=== PATIENT | female | born 1955 | race Caucasian/White ===

== ENCOUNTER → 2017-03-29 15:59 | Outpatient (CLI) | payer MEDICARE ==
[2016-01-06 10:20] VITALS: BMI 28.2
[~2017-03-29 15:59] MED LIST: ASPIRIN325 MG PO; AUGMENTIN 875-11 TAB PO; BETAPACE 80 MG80 MG PO; BOUDREAUXS BUTT60 GM TOPICAL; CIPRO500 MG PO; COREG25 MG PO; CYCLOBENZAPRINE10 MG PO; ELIQUIS2.5 MG PO; FLOMAX0.4 MG PO; HYDROCODONE-APA1 TAB PO; KEPPRA XR500 MG PO; LISINOPRIL5 MG PO; LYRICA75 MG PO; NORVASC10 MG PO; NYSTATIN15 GM TOPICAL; PAXIL40 MG PO; REGLAN5 MG PO; ROBAXIN-750750 MG PO; XANAX0.5 MG PO
[2017-03-29 17:47] LABS: APPEARANCE CLEAR (CLEAR); COLOR YELLOW (YELLOW); LEUKOCYTE ESTERASE NEGATIVE (NEGATIVE); SPECIFIC GRAVITY 1.015 (1.005-1.020)
[2017-03-29 17:48] LABS: BACTERIA MODERATE /hpf (NONE SEEN); BILIRUBIN NEGATIVE (NEGATIVE); EPITHELIAL CELLS 0-5 /hpf (0-5); GLUCOSE NEGATIVE (NEGATIVE); KETONE NEGATIVE (NEGATIVE); NITRITE NEGATIVE (NEGATIVE); PROTEIN 2+ mg/dL (NEGATIVE); RED CELLS - URINE 0-5 /hpf (0-5); UROBILINOGEN NORMAL (NORMAL); WHITE CELLS - URINE 0-5 /hpf (0-5)
== END | disposition home or self-care (01) ==
LOC: D.LABREF 15:59
PROVIDERS: Family Medicine
DX: N39.0 Urinary tract infection, site not specified (principal)

== ENCOUNTER 2017-04-02 16:19 | Inpatient (IN) | payer MEDICARE ==
[~2017-04-02] VITALS: Ht 170.2 cm; Wt 72.6 kg
[2017-04-02 17:17] LABS: BASOPHILS 0.1 % (0-2); EOSINOPHILS 1.7 % (0-7); HEMATOCRIT 45.5 % (36.0-48.0); HEMOGLOBIN 15.4 g/dL (12-16); IMMATURE GRANULOCYTES 0.1 % (0-5); LYMPHOCYTES 21.9 % (15-50); MCH 32.2 pg (26.0-34.0); MCHC 33.8 g/dL (31.0-37.0); MCV 95.2 fL (80.0-100.0); MEAN PLATELET VOLUME 12.8 fL (7.4-10.4); MONOCYTES 7.8 % (2-11); NEUTROPHILS 68.4 % (40-80); RBC 4.78 10x6/uL (4.00-5.40); RDW 13.4 % (11.5-14.5); WBC 8.1 10x3/uL (4.8-10.8)
[2017-04-02 17:21] LABS: PLATELET COUNT 140 10x3/uL (130-400)
[2017-04-02 18:04] LABS: ALBUMIN 2.8 g/dL (3.4-5.0); ALKALINE PHOSPHATASE 126 U/L (46-116); ALT (SGPT) 22 U/L (10-68); BILIRUBIN - TOTAL 0.27 mg/dL (0.2-1.3); CALC OSMOLALITY 288 mosm/kg (275-300); CALCIUM 8.7 mg/dL (8.5-10.1); CARBON DIOXIDE 29.2 mmol/L (21.0-32.0); CHLORIDE - SERUM 105 mmol/L (98-107); CREATININE - SERUM 0.8 mg/dL (0.6-1.3); GLUCOSE 182 mg/dL (74-106); PROTEIN - SERUM 5.9 g/dL (6.4-8.2); SODIUM 142 mmol/L (136-145); UREA NITROGEN 14 mg/dL (7-18); eGFR NON AFRICAN AMERICAN 77 mL/min (90-120)
[2017-04-02 19:12] LABS: APPEARANCE TURBID (CLEAR); COLOR YELLOW (YELLOW); GLUCOSE NEGATIVE (NEGATIVE); KETONE NEGATIVE (NEGATIVE); LEUKOCYTE ESTERASE 2+ (NEGATIVE); NITRITE POSITIVE (NEGATIVE); PROTEIN 2+ mg/dL (NEGATIVE)
[2017-04-02 19:13] LABS: BACTERIA MANY /hpf (NONE SEEN); BILIRUBIN NEGATIVE (NEGATIVE); EPITHELIAL CELLS 0-5 /hpf (0-5); MUCUS <1+ /lpf (NONE SEEN); RED CELLS - URINE 0-5 /hpf (0-5); WHITE CELLS - URINE >50 /hpf (0-5)
[2017-04-03 04:46] VITALS: BP 171/64; BMI 25.1
--- NOTE | 2017-04-03 07:36 | NUR ---
PATIENT IS RESTING QUIETLY WITH HER EYES CLOSED. PATIENT AWAKENS EASILY TO VERBAL STIMULI. PATIENT IS AWAKE, ALERT, AND ORIENTED X4. PATIENT COMPLAINS OF A "MILD HEADACHE". RATES HER PAIN LEVEL A "2" ON A 0-10 SCALE. DENIES ANY NAUSEA OR VOMITING AT PRESENT ITME. CONTACT ISOLATION PRECAUTIONS IN PLACE. IV SITE PATENT WITHOUT ANY S/S OF INFECTION IN PATIENT'S RIGHT FOREARM. NS INFUSING @ 100 ML/HR. PATIENT DENIES ANY NEEDS AT PRESENT TIME. BEDSIDE COMMODE NOTED NEXT TO PATIENT'S BEDSIDE. CALL LIGHT IN PATIENT'S REACH. WILL MONITOR PATIENT.
[2017-04-03 08:08] VITALS: BP 146/76
[2017-04-03 10:22] LABS: BASOPHILS 0.1 % (0-2); EOSINOPHILS 1.6 % (0-7); HEMATOCRIT 48.4 % (36.0-48.0); HEMOGLOBIN 16.2 g/dL (12-16); IMMATURE GRANULOCYTES 0.3 % (0-5); LYMPHOCYTES 19.6 % (15-50); MCH 31.6 pg (26.0-34.0); MCHC 33.5 g/dL (31.0-37.0); MCV 94.3 fL (80.0-100.0); MEAN PLATELET VOLUME 12.8 fL (7.4-10.4); MONOCYTES 6.9 % (2-11); NEUTROPHILS 71.5 % (40-80); RBC 5.13 10x6/uL (4.00-5.40); RDW 13.2 % (11.5-14.5); WBC 7.7 10x3/uL (4.8-10.8)
[2017-04-03 10:38] LABS: PLATELET COUNT 169 10x3/uL (130-400)
[2017-04-03 10:41] LABS: ALBUMIN 2.8 g/dL (3.4-5.0); ALKALINE PHOSPHATASE 121 U/L (46-116); ALT (SGPT) 22 U/L (10-68); BILIRUBIN - TOTAL 0.51 mg/dL (0.2-1.3); CALCIUM 9.2 mg/dL (8.5-10.1); CARBON DIOXIDE 29.4 mmol/L (21.0-32.0); CHLORIDE - SERUM 106 mmol/L (98-107); CREATININE - SERUM 0.8 mg/dL (0.6-1.3); PROTEIN - SERUM 6.5 g/dL (6.4-8.2); SODIUM 143 mmol/L (136-145); eGFR NON AFRICAN AMERICAN 77 mL/min (90-120)
[2017-04-03 10:42] LABS: CALC OSMOLALITY 283 mosm/kg (275-300); GLUCOSE 107 mg/dL (74-106); UREA NITROGEN 10 mg/dL (7-18)
[2017-04-03 12:25] VITALS: BP 163/113
[2017-04-03 12:53] VITALS: Ht 170.2 cm; Wt 72.6 kg
[2017-04-03 16:59] VITALS: BP 142/68
[2017-04-03] MEDS ORDERED: TETRACYCLINE H250 MG PO ×2 (17:02→17:21)
[2017-04-03] MEDS ORDERED: FLAGYL500 MG PO (17:21)
[2017-04-03 20:00] VITALS: BP 170/94
--- NOTE | 2017-04-03 20:14 | NUR ---
DC INSTRUCTIONS GIVEN.TO PT/SON/.ALONG WITH TWO RX. FOR ANTIBIOTICS FLAGYL AND TETRACYCLINE(PO).SL DC'D.HOME HEALTH WILL CONTINUE TO FOLLOW PRIOR TO ADMISSION.DC'D. VIA W/C WITH FAMILY WITH INTERIOR ASSEMBLIES DEVELOPER PROVER IN ASSIST.
== END 2017-04-03 20:30 | disposition home or self-care (01) | DRG 372 ==
LOC: D.ER 16:19 → D.MS 19:53
PROVIDERS: Emergency Medicine; ADMIT Family Medicine
DX: A04.7 Enterocolitis due to Clostridium difficile (principal); N39.0 Urinary tract infection, site not specified; I69.359 Hemiplegia and hemiparesis following cerebral infarction affecting unspecified side; E11.65 Type 2 diabetes mellitus with hyperglycemia; L89.892 Pressure ulcer of other site, stage 2; I10 Essential (primary) hypertension; I48.2 Chronic atrial fibrillation

== ENCOUNTER → 2017-04-17 18:07 | Outpatient (CLI) | payer MEDICARE ==
[2017-04-03 12:53] VITALS: BMI 25.0
[~2017-04-17 18:07] MED LIST changes: +FLAGYL500 MG PO; +TETRACYCLINE H250 MG PO
[2017-04-17 19:43] LABS: APPEARANCE CLOUDY (CLEAR); BACTERIA MANY /hpf (NONE SEEN); BILIRUBIN NEGATIVE (NEGATIVE); COLOR YELLOW (YELLOW); EPITHELIAL CELLS 0-5 /hpf (0-5); GLUCOSE NEGATIVE (NEGATIVE); KETONE NEGATIVE (NEGATIVE); LEUKOCYTE ESTERASE 1+ (NEGATIVE); NITRITE POSITIVE (NEGATIVE); PROTEIN 2+ mg/dL (NEGATIVE); RED CELLS - URINE 0-5 /hpf (0-5); SPECIFIC GRAVITY 1.015 (1.005-1.020); UROBILINOGEN NORMAL (NORMAL); WHITE CELLS - URINE >50 /hpf (0-5)
== END | disposition home or self-care (01) ==
LOC: D.LABREF 18:07
PROVIDERS: Family Medicine
DX: R30.0 Dysuria (principal)

== ENCOUNTER → 2017-05-13 11:49 | Outpatient (CLI) | payer MEDICARE ==
[2017-04-03 12:53] VITALS: BMI 25.0
[2017-05-13 13:41] LABS: CHOL - HDL RATIO 7.5 ratio (2.3-4.1); CHOLESTEROL, TOTAL 232 mg/dL (0-200); HDL CHOLESTEROL 31 mg/dL (32-96); TRIGLYCERIDE 439 mg/dL (30-200)
== END | disposition home or self-care (01) ==
LOC: D.LABREF 11:49
PROVIDERS: Family Medicine
DX: E11.9 Type 2 diabetes mellitus without complications (principal)

== ENCOUNTER 2017-10-09 15:04 | Emergency (ER) | payer MEDICARE, MEDICAID ==
[2017-04-03 12:53] VITALS: BMI 25.0
[2017-10-09 16:17] LABS: BASOPHILS 0 % (0-2); EOSINOPHILS 1.8 % (0-7); HEMATOCRIT 45.6 % (36.0-48.0); HEMOGLOBIN 15.8 g/dL (12-16); IMMATURE GRANULOCYTES 0.3 % (0-5); LYMPHOCYTES 11.5 % (15-50); MCH 31.2 pg (26.0-34.0); MCHC 34.6 g/dL (31.0-37.0); MCV 90.1 fL (80.0-100.0); MEAN PLATELET VOLUME 11.3 fL (7.4-10.4); MONOCYTES 9.1 % (2-11); NEUTROPHILS 77.3 % (40-80); PLATELET COUNT 186 10x3/uL (130-400); RBC 5.06 10x6/uL (4.00-5.40); RDW 13.1 % (11.5-14.5); WBC 7.2 10x3/uL (4.8-10.8)
[2017-10-09 16:39] LABS: ALBUMIN 2.4 g/dL (3.4-5.0); ALKALINE PHOSPHATASE 107 U/L (46-116); ALT (SGPT) 15 U/L (10-68); BILIRUBIN - TOTAL 0.52 mg/dL (0.2-1.3); CALC OSMOLALITY 279 mosm/kg (275-300); CARBON DIOXIDE 27.5 mmol/L (21.0-32.0); CHLORIDE - SERUM 105 mmol/L (98-107); CREATININE - SERUM 0.7 mg/dL (0.6-1.3); GLUCOSE 147 mg/dL (74-106); LIPASE 70 U/L (73-393); POTASSIUM - SERUM 3.4 mmol/L (3.5-5.1); PROTEIN - SERUM 6.3 g/dL (6.4-8.2); SODIUM 140 mmol/L (136-145); UREA NITROGEN 6 mg/dL (7-18); eGFR NON AFRICAN AMERICAN 90 mL/min (90-120)
[2017-10-09 18:00] LABS: COLOR DK YELLOW (YELLOW)
[2017-10-09 18:01] LABS: APPEARANCE CLOUDY (CLEAR); BACTERIA MANY /hpf (NONE SEEN); BILIRUBIN NEGATIVE (NEGATIVE); EPITHELIAL CELLS 0-5 /hpf (0-5); GLUCOSE NEGATIVE (NEGATIVE); KETONE NEGATIVE (NEGATIVE); NITRITE POSITIVE (NEGATIVE); PROTEIN 3+ mg/dL (NEGATIVE); RED CELLS - URINE 0-5 /hpf (0-5); SPECIFIC GRAVITY 1.015 (1.005-1.020); UROBILINOGEN NORMAL (NORMAL); WHITE CELLS - URINE >50 /hpf (0-5)
== END 2017-10-09 18:55 | disposition home or self-care (01) ==
LOC: D.ER 15:04
PROVIDERS: Emergency Medicine
DX: R11.10 Vomiting, unspecified (principal); N39.0 Urinary tract infection, site not specified; Z86.73 Personal history of transient ischemic attack (TIA), and cerebral infarction without residual deficits; E11.9 Type 2 diabetes mellitus without complications; K21.9 Gastro-esophageal reflux disease without esophagitis; I10 Essential (primary) hypertension

== ENCOUNTER → 2018-02-07 19:00 | Outpatient (CLI) | payer MEDICARE, MEDICAID ==
[2017-04-03 12:53] VITALS: BMI 25.0
[2018-02-07 20:09] LABS: APPEARANCE HAZY (CLEAR); BILIRUBIN NEGATIVE (NEGATIVE); COLOR YELLOW (YELLOW); GLUCOSE 50 mg/dL (NEGATIVE); KETONE NEGATIVE (NEGATIVE); NITRITE NEGATIVE (NEGATIVE); PROTEIN 2+ mg/dL (NEGATIVE); UROBILINOGEN NORMAL (NORMAL)
[2018-02-07 20:11] LABS: RED CELLS - URINE 0-5 /hpf (0-5)
[2018-02-07 20:12] LABS: BACTERIA MANY /hpf (NONE SEEN)
== END | disposition home or self-care (01) ==
LOC: D.LABREF 19:00
PROVIDERS: Family Medicine
DX: N39.0 Urinary tract infection, site not specified (principal); R35.0 Frequency of micturition

== ENCOUNTER → 2018-04-21 15:14 | Outpatient (CLI) | payer MEDICARE, MEDICAID ==
[2017-04-03 12:53] VITALS: BMI 25.0
[2018-04-21 15:42] LABS: APPEARANCE HAZY (CLEAR); BACTERIA MANY /hpf (NONE SEEN); BILIRUBIN NEGATIVE (NEGATIVE); COLOR YELLOW (YELLOW); EPITHELIAL CELLS 0-5 /hpf (0-5); GLUCOSE NEGATIVE (NEGATIVE); KETONE NEGATIVE (NEGATIVE); MUCUS >1+ /lpf (NONE SEEN); NITRITE NEGATIVE (NEGATIVE); PROTEIN 1+ mg/dL (NEGATIVE); RED CELLS - URINE 0-5 /hpf (0-5); SPECIFIC GRAVITY 1.015 (1.005-1.020); UROBILINOGEN NORMAL (NORMAL); WHITE CELLS - URINE >50 /hpf (0-5)
== END | disposition home or self-care (01) ==
LOC: D.LABREF 15:14
PROVIDERS: Family Medicine
DX: R33.9 Retention of urine, unspecified (principal)

== ENCOUNTER → 2018-05-16 21:25 | Outpatient (CLI) | payer MEDICARE, MEDICAID ==
[2017-04-03 12:53] VITALS: BMI 25.0
[2018-05-17 07:47] LABS: APPEARANCE CLOUDY (CLEAR); BILIRUBIN NEGATIVE (NEGATIVE); COLOR YELLOW (YELLOW); GLUCOSE NEGATIVE (NEGATIVE); KETONE NEGATIVE (NEGATIVE); NITRITE POSITIVE (NEGATIVE); PROTEIN 2+ mg/dL (NEGATIVE); SPECIFIC GRAVITY 1.015 (1.005-1.020); UROBILINOGEN NORMAL (NORMAL)
[2018-05-17 07:49] LABS: BACTERIA MANY /hpf (NONE SEEN); RED CELLS - URINE 0-5 /hpf (0-5); WHITE CELLS - URINE >50 /hpf (0-5)
== END | disposition home or self-care (01) ==
LOC: D.LABREF 21:25
PROVIDERS: Family Medicine
DX: Z87.440 Personal history of urinary (tract) infections (principal)

== ENCOUNTER 2018-08-21 16:12 | Emergency (ER) | payer MEDICARE, MEDICAID ==
[~2018-08-21] VITALS: Ht 170.2 cm; Wt 76.4 kg
[2018-08-21 16:24] VITALS: Ht 170.2 cm; Wt 76.4 kg
[2018-08-21] MEDS ORDERED: NEURONTIN 300300 MG PO (17:11)
[2018-08-21 18:28] VITALS: BP 160/56
== END 2018-08-21 18:28 | disposition home or self-care (01) ==
LOC: D.ER 16:12
DX: M54.12 Radiculopathy, cervical region (principal); Z86.73 Personal history of transient ischemic attack (TIA), and cerebral infarction without residual deficits; E11.9 Type 2 diabetes mellitus without complications; I10 Essential (primary) hypertension; K21.9 Gastro-esophageal reflux disease without esophagitis; F17.200 Nicotine dependence, unspecified, uncomplicated

== ENCOUNTER → 2018-09-04 17:10 | Outpatient (CLI) | payer MEDICARE ==
[2018-08-21 16:24] VITALS: BMI 26.3
[~2018-09-04 17:10] MED LIST changes: +ALENDRONATE SOD70 MG PO; +ASPIRIN81 MG PO; +FENOFIBRATE160 MG PO; +K-TAB10 MEQ PO; +LASIX20 MG PO; +LIPITOR20 MG PO; +MELATONIN 3 MG1 TAB PO; +NEURONTIN 300300 MG PO; +NEXIUM40 MG PO; +PLAVIX75 MG PO
[2018-09-04 18:12] LABS: BASOPHILS 0.1 % (0-2); EOSINOPHILS 2.1 % (0-7); HEMATOCRIT 41.6 % (36.0-48.0); HEMOGLOBIN 14.5 g/dL (12-16); IMMATURE GRANULOCYTES 0.1 % (0-5); LYMPHOCYTES 21.4 % (15-50); MCH 32.4 pg (26.0-34.0); MCHC 34.9 g/dL (31.0-37.0); MCV 93.1 fL (80.0-100.0); MEAN PLATELET VOLUME 12.9 fL (7.4-10.4); MONOCYTES 6.4 % (2-11); NEUTROPHILS 69.9 % (40-80); RBC 4.47 10x6/uL (4.00-5.40); RDW 12.6 % (11.5-14.5); WBC 7.5 10x3/uL (4.8-10.8)
[2018-09-04 18:15] LABS: PLATELET COUNT 230 10x3/uL (130-400)
[2018-09-04 18:37] LABS: ALBUMIN 3.1 g/dL (3.4-5.0); ALKALINE PHOSPHATASE 56 U/L (46-116); ALT (SGPT) 28 U/L (10-68); BILIRUBIN - TOTAL 0.21 mg/dL (0.2-1.3); CALC OSMOLALITY 288 mosm/kg (275-300); CARBON DIOXIDE 26.4 mmol/L (21.0-32.0); CHLORIDE - SERUM 105 mmol/L (98-107); CREATININE - SERUM 0.8 mg/dL (0.6-1.3); POTASSIUM - SERUM 4.7 mmol/L (3.5-5.1); PROTEIN - SERUM 6.5 g/dL (6.4-8.2); SODIUM 141 mmol/L (136-145); UREA NITROGEN 19 mg/dL (7-18); eGFR NON AFRICAN AMERICAN 77 mL/min (90-120)
[2018-09-04 18:38] LABS: GLUCOSE 214 mg/dL (74-106)
== END | disposition home or self-care (01) ==
LOC: D.LABREF 17:10
PROVIDERS: Family Medicine
DX: E11.9 Type 2 diabetes mellitus without complications (principal); I10 Essential (primary) hypertension; I63.9 Cerebral infarction, unspecified

== ENCOUNTER 2018-09-09 09:12 | Outpatient (CLI) | payer MEDICARE, MEDICAID ==
[~2018-09-09] VITALS: Ht 170.2 cm; Wt 81.8 kg
--- NOTE | ~2018-09-09 | HEMODYNAMI ---
PATIENT:SABI MILLER MEDICAL RECORD: [id number] : 57 LOCATION:[facility] ADMISSION DATE: 09/09/18 Generatedon:09/09/201811:41 Patient name: SABI MILLER Patient #: [id number] SSN: DO B: 1955 Date of study: 09/09/2018 Page: Of Hemodynamic Procedure Report Patient Data Patient Demographics Procedure consent was obtained First Name: SABI Gender: Female Last Name: PAUL : 1955 [facility] Initial: JAZLYN Age: 63 year(s) Patient #: [id number] Race: Unknown Additional ID: [id number] Contact details [address]: [address] [place] [address] State: [place] City: [place] Zip code: [address] Past Medical History Allergies Allergen Reaction Date Comments Reported Other allergy 09/09/2018 Benadryl, Chlopheniramine. Admission Admission Data Admission Date: 09/09/2018 Admission Time: 9:12 Admit Source: Other Height (in.): 67 BSA: 1.94 (m2) Height (cm.): 170.18 BMI: 28.24 (kg/m2) Weight (lbs.): 180.34 Weight (kg.): 81.8 Lab Results Lab Result Date: 09/09/2018 Lab Result Time: 10:15 Biochemistry Name Units Result Min Max BUN mg/dl 19 --(----)*- 7 18 Creatinine mg/dl 1 --(--*-)-- 0.6 1.3 CBC Name Units Result Min Max Hematocrit % 41.3 -*(----)-- 42 54 Hemoglobin g/dl 14.2 --(*---)-- 13.5 17.5 Procedure Procedure Types Cath Procedure Diagnostic Procedure LHC [facility] w/Coronaries Sedation Charges Moderate Sedation up to 15 minutes PCI Procedure Coronary Stent Coronary Stent Initial Peripheral Cath Diagnostic Procedure Central Supply Nurse Peripheral Procedures Yvwad-Prppehy-Yzt-Off Four Vessel Arteriogram Procedure Description Procedure Date Procedure Date: 09/09/2018 Procedure Start Time: 11:19 Procedure End Time: 11:38 Procedure Staff Name Function Tiago Cowart MD Performing Physician Alli Dela Cruz RT Monitor Julissa Wells RT Scrub Tommie Giordano RN Nurse Procedure Data Cath Procedure Fluoroscopy Diagnostic fluoroscopy Total fluoroscopy Time: 3 time: 3 min min Diagnostic fluoroscopy Total fluoroscopy dose: dose: 235.22 mGy 235.22 mGy Contrast Material Contrast Material Type Amount (ml) Isovue 300 150 Entry Location Entry Primary Successful Side Size Upsize Upsize Entry Closure Succes sful Closure Location (Fr) 1 (Fr) 2 (Fr) Remarks Device Remarks Femoral Right 5 Fr 6 Fr Exoseal artery Short Estimated blood loss: 10 ml Diagnostic catheters Device Type Used For End Catheter Placement Medtronic Dexterity 5Fr Procedure Pigtail catheter(NO COST SUPPLY) Medtronic Dexterity 5Fr Procedure JL 4.0 catheter (NO COST SUPPLY) Medtronic Dexterity 5Fr Procedure 3DRC catheter (NO COST SUPPLY) Procedure Complications No complications Procedure Medications Medication Administration Route Dosage Oxygen etCO2 Nasal cannula 2 l/min Heparin Flush Bag added to field 2 bags (1000units/500ml NS) 0.9% NaCl I.V. 100 ml/hr Fentanyl I.V. 50 mcg Versed I.V. 1 mg Fentanyl I.V. 50 mcg Versed I.V. 1 mg Fentanyl I.V. 50 mcg Versed I.V. 1 mg Fentanyl I.V. 50 mcg Versed I.V. 1 mg Heparin Bolus I.V. 4000 units Integrilin (Bolus I.V. 7.3 ml 2mg/ml) Plavix P.O. 600 mg Hemodynamics Rest BSA: 1.94 (m2) HGB: 14.2 (g/dl) O2 Consumption: Estimated: 176.56 (ml/min) O2 Co nsumption indexed: Estimated:91.01 (ml/min/m) Heart Rate: 61 (bpm) Snapshots Pre Cath Intra NCS Post Cath Vital Signs Time Heart Resp SPO2 etCO2 NIBP (mmHg) Rhythm Pain Sedation Rate (ipm) (%) (mmHg) Status Level (bpm) 11:08:22 65 17 93 32.6 143/62(104) NSR 0 (11) 10(A) , No pain 11:12:48 62 16 92 34.1 128/52(90) NSR 0 (11) 10(A) , No pain 11:17:02 61 17 97 38.7 116/59(92) NSR 0 (11) 10(A) , No pain 11:21:24 60 16 94 27.3 117/50(84) NSR 0 (11) 10(A) , No pain 11:25:44 63 16 91 0 103/52(87) NSR 0 (11) 9(A) , No pain 11:29:56 64 16 97 15.9 114/55(95) NSR 0 (11) 9(A) , No pain 11:34:12 65 17 97 0 115/52(92) NSR 0 (11) 9(A) , No pain 11:38:33 65 17 97 7.5 116/49(90) NSR 0 (11) 10(A) , No pain Medications Time Medication Route Dose Verified Delivered Reason Notes Effectiveness by by 11:11:02 Oxygen etCO2 2 Tiagogiselle Manriquezy Per physician Nasal l/min Supa Giordano RN cannula 11:11:11 Heparin Flush added 2 Tiago Manriquezy used for Bag to bags Supa Giordano RN procedure (1000units/500ml field NS) 11:11:22 0.9% NaCl I.V. 100 Tiago Manriquezy Per physician ml/hr Supa Giordano RN 11:17:46 Fentanyl I.V. 50 Tiago Tommie for sedation mcg Supa Goirdano RN 11:17:52 Versed I.V. 1 mg Tiago Tommie for sedation Supa Giordano RN 11:19:34 Fentanyl I.V. 50 Tiago Tommie for sedation mcg Supa Giordano RN 11:19:39 Versed I.V. 1 mg Tiago Tommie for sedation Supa Giordano RN 11:22:59 Fentanyl I.V. 50 Tiago Tommie for sedation mcg Supa Giordano RN 11:23:04 Versed I.V. 1 mg Tiago Tommie for sedation Supa Giordano RN 11:25:57 Fentanyl I.V. 50 Tiago Tommie for sedation mcg Supa Giordano RN 11:26:01 Versed I.V. 1 mg Tiago Tommie for sedation Supa Giordano RN 11:30:35 Heparin Bolus I.V. 4000 Tiago Reilly for units Supa Giordano RN anticoagulation 11:30:45 Integrilin I.V. 7.3 Tiago Reilly Per physician (Bolus 2mg/ml) ml uSpa Giordano RN 11:36:59 Plavix P.O. 600 Tiago Reilly for mg Supa Giordano RN antiplatelet therapy Procedure Log Time Note 10:24:50 Informed consent obtained and on chart 10:24:53 Admit Source: Other 10:25:06 Diagnostic Cath status Elective 10:25:07 Time tracking: Regular hours (M-F 7:00 - 5:00) 10:25:10 Plan of Care:Hemodynamics will remain stable., Cardiac rhythm will remain stable., Comfort level will be maintained., Respiratory function will remain adequate., Patient/ family verbilizes understanding of procedure., Procedure tolerated without complication., Recovers from procedure without complications.. 10:25:20 H&P Date Dictated: 09/07/2018 Within 30 days and on chart., H&P Addendum completed by physician on day of procedure. (MUST COMPLETE FOR ALL OUTPATIENTS). 10:42:00 Alli Dela Cruz RT(R) sent for patient. Start room use. 10:49:55 Lab Result : BUN 19 mg/dl 10:49:55 Lab Result : Hemoglobin 14.2 g/dl 10:49:55 Lab Result : Creatinine 1 mg/dl 10:49:55 Lab Result : Hematocrit 41.3 % 10:50:09 Patient Weight : 180.34 lbs 10:50:13 Patient Height : 67 inches 10:50:20 Lab results completed and on chart. 10:50:59 Patient allergic to Other allergyBenadryl, Chlopheniramine. 10:59:30 Patient received from Pre/Post Procedure Room to CCL 3 Alert and oriented. Tansferred to table in Supine position. 10:59:31 Warm blankets applied, and dawit hugger turned on for patient comfort. 10:59:31 Correct patient and procedure confirmed by team. 10:59:32 ECG and BP/O2 sat monitors applied to patient. 10:59:33 Full Disclosure recording started 11:07:07 Vital chart was started 11:11:02 Oxygen 2 l/min etCO2 Nasal cannula was administered by Tommie Giordano RN; Per physician; 11:11:11 Heparin Flush Bag (1000units/500ml NS) 2 bags added to field was administered by Tommie Giordano RN; used for procedure; 11:11:22 0.9% NaCl 100 ml/hr I.V. was administered by Tommie Giordano RN; Per physician; 11:14:00 Baseline sample Acquired. 11:14:04 Rhythm: sinus rhythm 11:14:08 Pre-procedure instructions explained to patient. 11:14:08 Pre-op teaching completed and patient verbalized understanding. 11:14:10 Family unavailable. 11:14:11 Patient NPO since Midnight. 11:14:13 Is the patient allergic to Iodine/contrast media? No. 11:14:15 Is patient on blood thinner?Yes 11:14:16 Patient diabetic? Yes. 11:14:18 Previous problem with sedation/anesthesia? No ? 11:14:19 Snore? Yes 11:14:20 Sleep apnea? No 11:14:21 Deviated septum? No 11:14:22 Opens mouth fully? Yes 11:14:22 Sticks out tongue? Yes 11:14:25 Airway obstruction? No ? 11:14:27 Dentures? No ? 11:14:29 Pre procedure: right dorsailis pedis pulse 2+ Normal; easily identifiable; not easily obliterated 11:14:31 Patient pain scale 0/10 ?. 11:14:38 IV patent on arrival in left forearm with 0.9% NaCl at [facility]. 11:15:01 Right groin area was prepped with chlora-prep and draped in sterile fashion 11:15:02 Alarms reviewed by R. N. 11:15:03 Sharps counted by scrub and verified by R.N. 11:15:06 ACIST Syringe (26488) opened to sterile field. 11:15:06 Bag Decanter () opened to sterile field. 11:15:08 ACIST Hand Control (01181) opened to sterile field. 11:15:08 ACIST Manifold (19474) opened to sterile field. 11:15:09 Tegaderm 4 x 4 (1626W) opened to sterile field. 11:15:13 DIAGNOSTIC WIRE .035 260cm J wire (936743) opened to sterile field. 11:15:14 Medline Cath Pack ([id number]) opened to sterile field. 11:15:56 SHEATH 5FR [place] ([id number]) opened to sterile field. 11:17:34 Physician arrived 11::35 --------ALL STOP TIME OUT------ 11::35 Final Timeout: patient, procedure, and site verified with staff and physician. All members of the team are in agreement. 11:17:36 Right groin site verified by team. 11:17:38 Physical assessment completed. ASA score P 2 - A patient with mild systemic disease as per Tiago Cowart MD. 11:17:41 Sedation plan: IV Moderate Sedation Medication:Versed, Fentanyl 11:17:46 Fentanyl 50 mcg I.V. was administered by Tommie Giordano RN; for sedation; 11:17:52 Versed 1 mg I.V. was administered by Tommie Giordano RN; for sedation; 11::34 Fentanyl 50 mcg I.V. was administered by Tommie Giordano RN; for sedation; 11:19:39 Versed 1 mg I.V. was administered by Tommie Giordano RN; for sedation; 11:19:45 Procedure started. 11:19:48 Local anesthetic to right femoral artery with Lidocaine 2% by Tiago Cowart MD.INITIAL ACCESS ONLY 11:19:53 Zero performed for pressure channel P1 11:20:27 A 5 Fr sheath was inserted into the Right Femoral artery 11:20:43 Zero performed for pressure channel P1 11:21:27 A Medtronic Dexterity 5Fr Pigtail catheter(NO COST SUPPLY) was advanced over the wire and used for Procedure. 11::58 LV gram done using FERGUSON 11:22:00 Injector settings: Ml/sec: 10, Volume: 20, 11:22:08 EF : 65 % 11:22:09 LV hemodynamics recorded. 11:22:59 Fentanyl 50 mcg I.V. was administered by Tommie Giordano RN; for sedation; 11:23:04 Versed 1 mg I.V. was administered by Tommie Giordano RN; for sedation; 11:23:53 Abdominal angiogram w/ runoff was performed. 11:23:56 Left leg runoff performed. 11:25:12 Right leg runoff performed. 11:25:17 Catheter exchanged over wire. 11:25:22 A Medtronic Dexterity 5Fr JL 4.0 catheter (NO COST SUPPLY) was advanced over the wire and used for Procedure. 11:25:49 LCA angiography performed. 11::57 Fentanyl 50 mcg I.V. was administered by Tommie Giordano RN; for sedation; 11::01 Versed 1 mg I.V. was administered by Tommie Giordano RN; for sedation; 11:26:24 Catheter exchanged over wire. 11::28 A [facility] Dexterity 5Fr 3DRC catheter (NO COST SUPPLY) was advanced over the wire and used for Procedure. 11:27:40 INFLATOR Merit BasixCompak ([id number]) opened to sterile field. 11:27:41 CHOICE PT Extra Support 182cm wire ([id number]) opened to sterile field. 11:27:46 SHEATH 6FR [place] (IBA144) opened to sterile field. 11:27:50 RCA angiography performed. 11:28:24 Left carotid angiography performed. 11:29:00 Left subclavian angiography performed 11:29:15 Right carotid angiography performed. 11:29:54 Catheter removed. 11:30:00 GUIDE 6FR HS I SH catheter ([id number]) opened to sterile field. 11:30:10 Sheath upsized to a 6 Fr Short. 11:30:16 6 Fr HS I SH guide catheter was inserted over the wire 11:30:35 Heparin Bolus 4000 units I.V. was administered by Tommie Giordano RN; for anticoagulation; 11:30:45 Integrilin (Bolus 2mg/ml) 7.3 ml I.V. was administered by Tommie Giordano RN; Per physician; 11:31:23 choice pt es wire advanced. 11:31:51 Wire advanced across lesion. 11:32:39 Place stent Inflation Number: 1 A INTEGRITY RX 2.5 x 14 stent ([id number]) was prepped and advanced across the Mid RCA. The stent was deployed at 11 MARYA for 0:10 (min:sec). 11:32:54 Stent catheter was removed intact over wire. 11:32:55 Wire removed. 11:32:55 Guide catheter removed. 11:35:45 EXOSEAL 6Fr (EX600) opened to sterile field. 11:35:52 Sheath removed intact; hemostasis achieved with Exoseal to the Right Femoral artery. 11:35:53 Procedure ended.(Physican Out) 11:36:18 Fluoroscopy time 03.00 minutes. 11:36:23 Flurop Dose total: 235.22 11:36:23 Fluoroscopy dose: 235.22 mGy 11:36:26 Contrast amount:Isovue 300 150ml. 11:36:27 Sharps counted by scrub and verified by R.N. 11:36:28 Insertion/operative site no bleeding no hematoma. 11:36:30 Post-op/insertion site Right Femoral artery dressed using a 4 x 4 and Tegaderm. 11:36:33 Post right femoral artery:stable, soft, clean and dry 11:36:35 Post Procedure Pulses reassessed and unchanged 11:36:37 Post-procedure physical assessment completed. ASA score P 2 - A patient with mild systemic disease as per Tiago Cowart MD. 11:36:39 Post procedure rhythm: unchanged. 11:36:41 Estimated blood loss: 10 ml 11:36:43 Post procedure instruction explained to patient.Patient verbalizes understanding. 11:36:43 Patient needs reinforcement of post procedure teaching. 11:36:59 Plavix 600 mg P.O. was administered by Tommie Giordano RN; for antiplatelet therapy; 11:37:07 Procedure type changed to Cath procedure, Diagnostic procedure, LHC, LHC w/Coronaries, Sedation Charges, Moderate Sedation up to 15 minutes, PCI procedure, Coronary Stent, Coronary Stent Initial, Peripheral Cath Diagnostic Procedure, Central Supply Nurse Peripheral Procedures, Ndute-Mrdkhvc-Ffv-Off, Four Vessel Arteriogram 11:38:18 Procedure and supply charges have been captured, reviewed, submitted and are correct. 11:38:21 Procedure Complication : No complications 11:38:22 Vital chart was stopped 11:38:23 See physician's report for complete and final results. 11:38:24 Report given to Pre/Post Procedure Room. 11:38:26 Patient transfered to Pre/Post Procedure Room with Stretcher. 11:38:28 Procedure ended. 11:38:28 Full Disclosure recording stopped 11:38:31 End room use (Document Last) Intervention Summary Intervention Notes Time ActionType Lesion and Equipment Action# Pressure Duration Attributes Used 11:32:39 Place stent Mid RCA INTEGRITY RX 1 11 00:10 2.5 x 14 stent ([id number]) Device Usage Item Name Manufacture Quantity Catalog Number Hospital Part Current Mini mal Lot# / Charge Number Stock Stock Serial# Code ACIST Acist 1 19571 693635 654784 900913 20 Syringe Medical (27338) Systems Inc Bag Decanter Microtek 1 2001S 260715 55048 729598 5 (2001S) Medical Inc. ACIST Hand Acist 1 20122 379821 658075 054234 5 Control Medical (50890) Systems Inc ACIST Acist 1 48016 095581 721370 638394 5 Manifold Medical (13896) Systems Inc Tegaderm 4 x 3M 1 1626W 242698 012797 936057 5 4 (1626W) DIAGNOSTIC St Felix 1 441392 719361 459465 761675 30 WIRE .035 260cm J wire (156720) Medline Cath Medline 1 [id number] 850330 41656 527010 5 Pack ([id number]) Medtronic Medtronic 1 [id number] 628594 038673 5 Dexterity 5Fr Pigtail catheter(NO COST SUPPLY) Medtronic Medtronic 1 [id number] 288537 348758 5 Dexterity 5Fr JL 4.0 catheter (NO COST SUPPLY) Medtronic Medtronic 1 [id number] 782876 167657 5 Dexterity 5Fr 3DRC catheter (NO COST SUPPLY) INFLATOR [employer] 1 SW6402 835843 635323 671440 15 [employer] Medical BasixCompak (LU9847) CHOICE PT [place] 1 [id number] 101178 057630 806191 5 Extra Scientific Support 182cm wire ([id number]) SHEATH 6FR Terumo 1 HLN086 861424 445778 111607 40 [place] (LTC368) GUIDE 6FR HS Medtronic 1 [id number] 911517 90589 197495 1 I SH catheter (LI9ARQLL) INTEGRITY RX Medtronic 1 [id number] 889108 055827 144701 5 [id number] 2.5 x 14 stent ([id number]) EXOSEAL 6Fr Cardinal 1 EX600 006012 982559 381451 10 (EX600) Health SHEATH 5FR Terumo 1 NWH737 337817 041071 666731 40 [place] (NVO610) Signature Audit [place] Stage Time Signature Unsigned Intra-Procedure 09/09/2018 Alli Dela Cruz 11:41:16 AM RT(R) Signatures Monitor : Alli Dela Cruz RT Signature : Date : Time : [facility] [address] [place] [address]
--- NOTE | ~2018-09-09 | OP ---
PATIENT NAME: SABI MILLER MEDICAL RECORD: [id number] :57 LOCATION:D.CAT ADMISSION DATE: SURGEON: MAURI EARL MD DATE OF OPERATION: 09/09/2018 PROCEDURES: 1. Aortofemoral runoff. 2. Abdominal aortography. 3. Four-vessel carotid and vertebral angiography. DESCRIPTION OF PROCEDURE: After informed consent was obtained and after detailed description of risks, benefits as well as alternative therapies, the patient elected to proceed with angiogram. The right femoral area had a preexisting sheath. All catheters exchanged through this sheath. FINDINGS: There was subselection of each subclavian as well as the left carotid. RIGHT SIDE: The common carotid is overall devoid of disease. The internal carotid has 30-40% stenosis, but no significant flowing stenosis. The external carotid is extremely small. Vertebral artery has no significant disease. LEFT SYSTEM: 1. The common carotid distally has at least 60% stenosis. The internal and external carotids have mild plaquing, none greater than 30%. Vertebral artery has no significant disease. 2. Abdominal aortography was performed. The catheter was pulled down for aortofemoral runoff. Abdominal aortography reveals tzrl-rv-bktuqqht irregularities of the abdominal aorta, but no flow limiting stenosis. No dissection or annulus formation. RIGHT LEG: A. Iliac: The common iliac has mild irregularities, but no flow-limiting stenosis. Internal and external iliacs have mild irregularities, but no flow-limiting stenosis. B. Femoral system: The common superficial and deep femoral have mild irregularities, but no flow-limiting stenosis. C. Popliteal and infrapopliteal vessels are patent with good 3-vessell runoff to the foot. LEFT LEG: A. Iliac: The common internal and external iliacs have mild irregularities, but no flow-limiting stenosis. B. Femoral system: The common and deep femoral are widely patent. Superficial femoral has a 70% to 80% stenosis in the mid distal vessel. C. Popliteal and infrapopliteal vessels: The popliteal has a 70% to 80% stenosis in the mid vessel of this segment as well. The infrapopliteal vessels have good -3-vessell runoff to the foot. OVERALL IMPRESSION: Left leg disease of the superficial femoral artery and popliteal that is amenable to transcatheter revascularization in the future. Right leg has no significant disease. 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
--- NOTE | ~2018-09-09 | OP ---
PATIENT NAME: SABI MILLER MEDICAL RECORD: [id number] :57 LOCATION:D.CAT ADMISSION DATE: SURGEON: MAURI EARL MD DATE OF OPERATION: 09/09/2018 DATE OF SERVICE: 09/09/2018 PROCEDURES: 1. PTCA stent RCA. 2. Left heart catheterization. 3. Selective coronary angiography. 4. Left ventriculogram. INDICATION: Angina and coronary artery disease. PROCEDURE PERFORMED: After informed consent was obtained and after detailed description of risks, benefits as well as alternative therapies, the patient elected to proceed with angiogram and angioplasty. The right femoral area was prepped and draped in normal sterile fashion. Right femoral artery was cannulated via modified Seldinger technique with placement of 6-[place] sheath. All catheters exchanged through this sheath. FINDINGS: Left ventriculogram was performed in the standard 30-degree FERGUSON view reveals good cardiac wall motion throughout all segments with overall ejection fraction estimated at 55% to 60%. SELECTIVE CORONARY ANGIOGRAPHY: 1. Left main is with no significant angiographic disease. 2. Left anterior descending has a long area of 70+ percent stenosis in the mid vessel. 3. Left circumflex has mild irregularities, but no flow-limiting stenosis. 4. Right coronary has 80+ percent stenosis in the mid vessel, PTCA STENT OF THE RCA: The stent used is 2.5 x 14 mm Integrity. The result was 0% residual stenosis. OVERALL IMPRESSION: Successful percutaneous transluminal coronary angioplasty stent of the right coronary artery going from 80% initial stenosis to 0% residual. PLAN: For PTCA stent of the LAD in the near future. TRANSINT:[id number] Voice Confirmation ID: [id number] DOCUMENT ID: [id number] MAURI EARL MD at 1856 CC: [id number] DICTATION DATE: 09/09/[address] JUDGE: 09/09/18 1308 DEP CLI 09/09/18 [place] [id number]
[~2018-09-09 09:12] MED LIST changes: -ALENDRONATE SOD70 MG PO; -ASPIRIN81 MG PO; -FENOFIBRATE160 MG PO; -K-TAB10 MEQ PO; -LASIX20 MG PO; -LIPITOR20 MG PO; -MELATONIN 3 MG1 TAB PO; -NEXIUM40 MG PO; -PLAVIX75 MG PO
[2018-09-09] MEDS ORDERED: LIPITOR20 MG PO (10:03)
[2018-09-09] MEDS ORDERED: FENOFIBRATE160 MG PO (10:14)
[2018-09-09] MEDS ORDERED: ALENDRONATE SOD70 MG PO (10:15)
[2018-09-09] MEDS ORDERED: LASIX20 MG PO (10:16)
[2018-09-09] MEDS ORDERED: MELATONIN 3 MG1 TAB PO (10:16)
[2018-09-09] MEDS ORDERED: NEXIUM40 MG PO (10:16)
[2018-09-09] MEDS ORDERED: K-TAB10 MEQ PO (10:17)
[2018-09-09 10:26] LABS: BASOPHILS 0.1 % (0-2); EOSINOPHILS 1.5 % (0-7); HEMATOCRIT 41.3 % (36.0-48.0); HEMOGLOBIN 14.2 g/dL (12-16); IMMATURE GRANULOCYTES 0.1 % (0-5); LYMPHOCYTES 18.7 % (15-50); MCHC 34.4 g/dL (31.0-37.0); MEAN PLATELET VOLUME 12.2 fL (7.4-10.4); MONOCYTES 5.7 % (2-11); NEUTROPHILS 73.9 % (40-80); PLATELET COUNT 217 10x3/uL (130-400); RBC 4.44 10x6/uL (4.00-5.40); RDW 12.7 % (11.5-14.5); WBC 7.2 10x3/uL (4.8-10.8)
[2018-09-09 10:29] VITALS: BP 138/56; Ht 170.2 cm; Wt 81.8 kg
[2018-09-09 10:45] LABS: ANION GAP 11.6 mmol/L (8-16); CALCIUM 9.5 mg/dL (8.5-10.1); CARBON DIOXIDE 28.8 mmol/L (21.0-32.0); POTASSIUM - SERUM 4.4 mmol/L (3.5-5.1)
[2018-09-09] MEDS ORDERED: PLAVIX75 MG PO (12:18)
[2018-09-09] MEDS ORDERED: ASPIRIN81 MG PO (12:35)
== END 2018-09-09 15:45 | disposition home or self-care (01) ==
LOC: D.CATH 09:12
PROVIDERS: Internal Medicine Interventional Cardiology
DX: I25.119 Atherosclerotic heart disease of native coronary artery with unspecified angina pectoris (principal); I70.202 Unspecified atherosclerosis of native arteries of extremities, left leg; I65.23 Occlusion and stenosis of bilateral carotid arteries; Z01.812 Encounter for preprocedural laboratory examination

== ENCOUNTER 2018-09-11 09:39 | Outpatient (CLI) | payer MEDICARE, MEDICAID ==
[~2018-09-11] VITALS: Ht 170.2 cm; Wt 84.1 kg
--- NOTE | ~2018-09-11 | HEMODYNAMI ---
PATIENT:SABI MILLER MEDICAL RECORD: [id number] : 57 LOCATION:[facility] ADMISSION DATE: 09/11/18 Generatedon:09/11/201814:19 Patient name: SABI MILLER Patient #: [id number] SSN: DO B: 1955 Date of study: 09/11/2018 Page: Of Hemodynamic Procedure Report Patient Data Patient Demographics Procedure consent was obtained First Name: SABI Gender: Female Last Name: PAUL : 1955 [facility] Initial: JAZLYN Age: 63 year(s) Patient #: [id number] Race: Unknown Additional ID: [id number] Contact details [address]: [address] [place] [address] State: [place] City: [place] Zip code: [address] Past Medical History Allergies Allergen Reaction Date Comments Reported Other allergy 09/09/2018 Benadryl, Chlopheniramine. Other allergy 09/11/2018 Benadryl, Chlorpheniraime. Admission Admission Data Admission Date: 09/11/2018 Admission Time: 9:39 Admit Source: Other Lab Results Lab Result Date: 09/11/2018 Lab Result Time: 10:35 Biochemistry Name Units Result Min Max BUN mg/dl 20 --(----)*- 7 18 Creatinine mg/dl 0.9 --(-*--)-- 0.6 1.3 CBC Name Units Result Min Max Hematocrit % 41.3 -*(----)-- 42 54 Hemoglobin g/dl 14.1 --(*---)-- 13.5 17.5 Procedure Procedure Types Cath Procedure Diagnostic Procedure FFR/IVUS Intra-Coronary IVUS Initial PCI Procedure Coronary Stent Coronary Stent Initial Procedure Description Procedure Date Procedure Date: 09/11/2018 Procedure Start Time: 14:01 Procedure End Time: 14:17 Procedure Staff Name Function Tiago Cowart MD Performing Physician Alli Dela Cruz RT Monitor Julissa Wells RT Scrub Abi Efrem RN Nurse Procedure Data Cath Procedure Fluoroscopy Diagnostic fluoroscopy Total fluoroscopy Time: 3 time: 3 min min Diagnostic fluoroscopy Total fluoroscopy dose: 175 dose: 175 mGy mGy Contrast Material Contrast Material Type Amount (ml) Isovue 300 51 Entry Location Entry Primary Successful Side Size Upsize Upsize Entry Closure Succes sful Closure Location (Fr) 1 (Fr) 2 (Fr) Remarks Device Remarks Femoral Right 6 Fr Exoseal artery Short Estimated blood loss: 10 ml Procedure Complications No complications Procedure Medications Medication Administration Route Dosage 0.9% NaCl I.V. 100 ml/hr Oxygen etCO2 Nasal cannula 2 l/min Lidocaine 2% added to field 20 Heparin Flush Bag added to field 2 bags (1000units/500ml NS) Versed I.V. 2 mg Fentanyl I.V. 100 mcg Heparin Bolus I.V. 4000 units Versed I.V. 2 mg Plavix P.O. 75 mg Hemodynamics Rest HGB: 14.1 (g/dl) Heart Rate: 22 (bpm) Snapshots Pre Cath Intra NCS Post Cath Vital Signs Time Heart Resp SPO2 NIBP (mmHg) Rhythm Pain Sedation Rate (ipm) (%) Status Level (bpm) 13:46:02 67 19 96 154/68(102) NSR 0 (11) 10(A) , No pain 13:50:35 65 13 96 154/71(123) NSR 0 (11) 10(A) , No pain 13:55:03 63 12 96 142/66(105) NSR 0 (11) 10(A) , No pain 13:59:33 64 17 97 139/63(105) NSR 0 (11) 10(A) , No pain 14:03:57 64 16 98 134/64(100) NSR 0 (11) 10(A) , No pain 14:08:21 66 17 98 134/66(102) NSR 0 (11) 10(A) , No pain 14:12:46 64 16 96 135/56(101) NSR 0 (11) 10(A) , No pain 14:16:45 No Cuff NSR 0 (11) 10(A) , No pain Medications Time Medication Route Dose Verified Delivered Reason Notes Effectiveness by by 13:30:50 0.9% NaCl I.V. 100 Tiago Alex used for ml/hr Supa Topete jacquard plate maker 13:30:56 Oxygen etCO2 2 Tiago Abi used for Nasal l/min Supa Topete procedure cannula RN 13:31:03 Lidocaine 2% added 20ml Tiago Tiago for local to vial Supa Cowart MD anesthetic field 13:31:08 Heparin Flush added 2 Tiago Tiago used for Bag to bags Supa Cowart MD procedure (1000units/500ml field NS) 13:59:13 Versed I.V. 2 mg Tiago Abi for sedation Supa Topete RN 13:59:20 Fentanyl I.V. 100 Tiago Abi for sedation mcg Supa Topete RN 14:01:13 Heparin Bolus I.V. 4000 Tiago Abi for units Supa Topete anticoagulation RN 14:06:56 Versed I.V. 2 mg Tiago Abi for sedation Supa Topete RN 14:10:11 Plavix P.O. 75 mg Tiago Abi for Supa Topete antiplatelet RN therapy Procedure Log Time Note 13:22:39 Informed consent obtained and on chart 13:22:42 Admit Source: Other 13:23:05 Diagnostic Cath status Elective 13:23:06 Time tracking: Regular hours (M-F 7:00 - 5:00) 13:23:09 Plan of Care:Hemodynamics will remain stable., Cardiac rhythm will remain stable., Comfort level will be maintained., Respiratory function will remain adequate., Patient/ family verbilizes understanding of procedure., Procedure tolerated without complication., Recovers from procedure without complications.. 13:23:40 H&P Date Dictated: 09/11/2018 New H&P dictated by physician.. 13:26:28 Lab Result : BUN 20 mg/dl 13:26:28 Lab Result : Creatinine 0.9 mg/dl 13:26:28 Lab Result : Hemoglobin 14.1 g/dl 13:26:28 Lab Result : Hematocrit 41.3 % 13:26:31 Lab results completed and on chart. 13:28:59 Alli YUAN(R) sent for patient. Start room use. 13:30:50 0.9% NaCl 100 ml/hr I.V. was administered by Abi Topete RN; used for procedure; 13:30:56 Oxygen 2 l/min etCO2 Nasal cannula was administered by Abi Topete RN; used for procedure; 13:31:03 Lidocaine 2% 20ml vial added to field was administered by Tiago Cowart MD; for local anesthetic; 13:31:08 Heparin Flush Bag (1000units/500ml NS) 2 bags added to field was administered by Tiago Cowart MD; used for procedure; 13:44:36 Vital chart was started 13:53:47 Patient received from Pre/Post Procedure Room to CCL 1 Alert and oriented. Tansferred to table in Supine position. 13:53:48 Warm blankets applied, and dawit hugger turned on for patient comfort. 13:53:49 Correct patient and procedure confirmed by team. 13:53:49 ECG and BP/O2 sat monitors applied to patient. 13:53:52 Baseline sample Acquired. 13:53:59 Rhythm: sinus rhythm 13:54:03 Pre-procedure instructions explained to patient. 13:54:04 Pre-op teaching completed and patient verbalized understanding. 13:54:08 Family in waiting room. 13:54:10 Patient NPO since Midnight. 13:54:45 Patient allergic to Other allergyBenadryl, Chlorpheniraime. 13:54:50 Is patient on blood thinner?Yes 13:54:53 ACC The patient was administered the following blood thiners within the last 24 hours: ACCPlavix 13:56:03 Patient diabetic? Yes. 13:56:04 If diabetic: On Metformin? No 13:56:07 Previous problem with sedation/anesthesia? No ? 13:56:11 Snore? Yes 13:56:12 Sleep apnea? No 13:56:12 Deviated septum? No 13:56:13 Opens mouth fully? Yes 13:56:14 Sticks out tongue? Yes 13:56:15 Airway obstruction? No ? 13:56:16 Dentures? No ? 13:56:20 Pre procedure: right dorsailis pedis pulse 2+ Normal; easily identifiable; not easily obliterated 13:56:22 Patient pain scale 0/10 ?. 13:56:27 IV patent on arrival in right antecubital with 0.9% NaCl at [facility]. 13:56:33 Right groin area was prepped with chlora-prep and draped in sterile fashion 13:56:34 Alarms reviewed by R. N. 13:56:34 Sharps counted by scrub and verified by RGarcíaN. 13:56:37 ACIST Syringe (93385) opened to sterile field. 13:56:37 Bag Decanter (2002S) opened to sterile field. 13:56:38 Medline Cath Pack ([id number]) opened to sterile field. 13:56:39 ACIST Hand Control (13579) opened to sterile field. 13:56:40 ACIST Manifold (72511) opened to sterile field. 13:56:41 Tegaderm 4 x 4 (1626W) opened to sterile field. 13:56:42 SHEATH 5FR Dalzell (JPR633) opened to sterile field. 13:56:43 DIAGNOSTIC Multipack 5Fr catheter set (ID4656) opened to sterile field. 13:56:44 DIAGNOSTIC WIRE .035 260cm J wire (006213) opened to sterile field. 13:57:05 Physician arrived 13:57:05 --------ALL STOP TIME OUT------ 13:57:06 Final Timeout: patient, procedure, and site verified with staff and physician. All members of the team are in agreement. 13:57:07 Right groin site verified by team. 13:57:09 Physical assessment completed. ASA score P 2 - A patient with mild systemic disease as per Tiaog Cowart MD. 13:57:12 Sedation plan: IV Moderate Sedation Medication:Versed, Fentanyl 13:59:13 Versed 2 mg I.V. was administered by Abi Topete RN; for sedation; 13:59:20 Fentanyl 100 mcg I.V. was administered by Abi Topete RN; for sedation; 14:00:48 Procedure started. 14:00:48 Full Disclosure recording started 14:01:01 Local anesthetic to right femoral artery with Lidocaine 2% by Tiago Cowart MD.INITIAL ACCESS ONLY 14:01:13 Heparin Bolus 4000 units I.V. was administered by Abi Topete RN; for anticoagulation; 14:02:04 SHEATH 6FR [place] (VTZ505) opened to sterile field. 14:02:11 A 6 Fr Short sheath was inserted into the Right Femoral artery 14:02:21 GUIDE 6FR XBLAD 3.5 catheter ([id number]) opened to sterile field. 14:02:26 Zero performed for pressure channel P1 14:03:22 INFLATOR Merit [place] (UB1865) opened to sterile field. 14:03:22 CHOICE PT Extra Support 182cm wire ([id number]) opened to sterile field. 14:03:52 6 Fr XBLAD 3.5 guide catheter was inserted over the wire 14:03:55 CHOICE PT ES wire advanced. 14:03:57 Wire advanced across lesion. 14:04:07 Knippa [place] IVUS Catheter (32671U) opened to sterile field. 14:04:12 IVUS catheter advanced over wire. 14:04:13 IVUS pass to LAD lesion performed. 14:04:14 IVUS catheter removed over wire. 14:06:56 Versed 2 mg I.V. was administered by Abi Topete RN; for sedation; 14:07:18 Place stent Inflation Number: 1 A INTEGRITY RX 3.0 x 15 stent ([id number]) was prepped and advanced across the Prox LAD. The stent was deployed at 13 MARYA for 0:10 (min:sec). 14:07:21 Stent catheter was removed intact over wire. 14:07:33 Wire removed. 14:07:35 Guide catheter removed. 14:07:42 Sheath removed intact; hemostasis achieved with Exoseal to the Right Femoral artery. 14:07:48 Procedure ended.(Physican Out) 14:07:58 Fluoroscopy time 03.00 minutes. 14:08:03 Flurop Dose total: 175 14:08:03 Fluoroscopy dose: 175 mGy 14:09:37 Contrast amount:Isovue 300 51ml. 14:10:11 Plavix 75 mg P.O. was administered by Abi Topete RN; for antiplatelet therapy; 14:15:09 Sharps counted by scrub and verified by R.N. 14:15:23 Insertion/operative site no bleeding no hematoma. 14:15:26 Post-op/insertion site Left Femoral artery dressed using a 4 x 4 and Tegaderm. 14:15:33 Post left femerol artery:stable, soft, clean and dry 14:15:39 Post Procedure Pulses reassessed and unchanged 14:15:41 Post-procedure physical assessment completed. ASA score P 2 - A patient with mild systemic disease as per Tiago Cowart MD. 14:15:43 Post procedure rhythm: unchanged. 14:15:46 Estimated blood loss: 10 ml 14:15:47 Post procedure instruction explained to patient.Patient verbalizes understanding. 14:15:47 Patient needs reinforcement of post procedure teaching. 14:16:04 Procedure type changed to Cath procedure, Diagnostic procedure, FFR/IVUS, Intra-Coronary IVUS Initial, PCI procedure, Coronary Stent, Coronary Stent Initial 14:16:42 Procedure and supply charges have been captured, reviewed, submitted and are correct. 14:16:45 Procedure Complication : No complications 14:16:49 Vital chart was stopped 14:16:57 See physician's report for complete and final results. 14:16:59 Report given to Pre/Post Procedure Room. 14:17:02 Patient transfered to Pre/Post Procedure Room with Stretcher. 14:17:04 Procedure ended. 14:17:04 Full Disclosure recording stopped 14:17:07 End room use (Document Last) Intervention Summary Intervention Notes Time ActionType Lesion and Equipment Action# Pressure Duration Attributes Used 14:07:18 Place stent Prox LAD INTEGRITY RX 1 13 00:10 3.0 x 15 stent ([id number]) Device Usage Item Name Manufacture Quantity Catalog Number Hospital Part Current Mini mal Lot# / Charge Number Stock Stock Serial# Code ACIST Acist 1 99413 898179 518462 354985 20 Syringe Medical (86160) Systems Inc Bag Decanter Microtek 1 2001S 904313 50154 536269 5 (2001S) Medical Inc. Medline Cath Medline 1 [id number] 803067 35970 876025 5 Pack ([id number]) ACIST Hand Acist 1 86686 680193 673217 999392 5 Control Medical (03886) Systems Inc ACIST Acist 1 90203 269009 338284 994644 5 Manifold Medical (09429) Systems Inc Tegaderm 4 x 3M 1 1626W 682333 579996 225612 5 4 (1626W) SHEATH 5FR Terumo 1 LLK293 086608 396239 817853 40 Dalzell (RBK240) DIAGNOSTIC Cardinal 1 AS2026 709492 68993 209759 30 [facility] Health 5Fr catheter set (FW0673) DIAGNOSTIC St Felix 1 269100 936280 585083 068382 30 WIRE .035 260cm J wire (191632) SHEATH 6FR Terumo 1 JJD773 957187 211115 628217 40 Dalzell (RCP249) GUIDE 6FR Cardinal 1 [id number] 541315 777721 710417 10 XBLAD 3.5 Health catheter (79601168) INFLATOR Merit 1 QP7854 800839 480594 052068 15 [facility] Medical BasixCompak (ZL7134) CHOICE PT [place] 1 [id number] 402367 225114 132170 5 Extra Scientific Support 182cm wire ([id number]) Knippa Knippa 1 71414V 693379 377990 020104 8 [place] IVUS Catheter (46667Q) INTEGRITY RX Medtronic 1 [id number] 175782 573510 471795 5 [id number] 3.0 x 15 stent ([id number]) Signature Audit Upatoi Stage Time Signature Unsigned Intra-Procedure 09/11/2018 Alli Dela Cruz 2:19:02 PM RT(R) Signatures Monitor : Alli Dela Cruz RT Signature : Date : Time : [address] [place] [address]
--- NOTE | ~2018-09-11 | HP ---
PATIENT: SABI DILLON MEDICAL RECORD: [id number] ACCOUNT: [id number] LOCATION:PETR : 57 ADMISSION DATE: 09/11/18 PCP: PAPTIO VALDEZ MD HISTORY AND PHYSICAL EXAMINATION ADMITTING DIAGNOSES: 1. Angina. 2. Coronary artery disease. 3. Recent PTCA and stent of RCA with concomitant disease of LAD. 4. Previous CVA. 5. Peripheral vascular disease. HISTORY OF PRESENT ILLNESS: Ms. Dillon presents with anginal symptomatology, found to have 2-vessel disease of the RCA and LAD, underwent successful PTCA and stent of the RCA. She is now brought back for PTCA and stent of the LAD. REVIEW OF SYSTEMS: The patient reports easy bruising but reports no swollen glands. The patient reports no fever, no night sweats, no significant weight gain, no significant weight loss. No significant exercise tolerance. The patient reports no dry eyes, no irritation, no vision change. Patient reports no difficulty hearing and no ear pain. Patient reports no frequent nose bleeds or nose and sinus problems. Patient reports on arm pain on exertion. No shortness of breath while lying down. No history of heart murmur. Patient reports no cough, no wheezing or coughing up blood. Patient reports no abdominal pain, no vomiting. Normal appetite. No diarrhea and not vomiting blood. No nausea and no constipation. Patient reports no incontinence. No difficulty urinating. No hematuria. No increased frequency. Patient reports no muscle aches. No weakness, no arthralgias, no back pain. No swelling of the extremities. Patient reports no abnormal mole, no jaundice, no rashes. Reports no loss of consciousness. No weakness and no numbness. No seizures, dizziness, or headaches. The patient reports no depression, no sleep disturbance, feeling safe in a relationship and no alcohol abuse. Patient reports on fatigue. Reports no runny nose or sinus pressure. No itching, no hives, and no frequent sneezing. PHYSICAL EXAMINATION: GENERAL APPEARANCE: Well-nourished, well-developed, appears stated age. Level of distress, comfortable. PSYCHIATRIC: Mental status, alert, normal affect. Orientation, oriented to time, place and person. EYES: Lids and conjunctiva, noninjected. No discharge, no pallor. ENT: Lips, teeth, gums, normal dentition. Oropharynx, no cyanosis, no pallor. NECK: Carotid arteries, bilateral normal upstroke, no bruits, no thrills. JUGULAR VEINS: No jugular venous pressure or distention. CERVICAL LYMPH NODES: Nontender, nonenlarged. THYROID: Not enlarged. Nontender. No nodules. LUNGS: Respiratory effort, unlabored. CHEST: Normal curvature. No thoracic deformity. No chest wall tenderness. Percussion, resonant. Auscultation, clear. No wheezes, no rales, no rhonchi. CARDIOVASCULAR: Precordial exam, nondisplaced. No heaves or pericardial thrills. Rate and rhythm, regular. Heart sounds, normal S1, normal S2. No S3, no gallop, no rub. Systolic murmur, not heard. Diastolic murmur, not heard. EXTREMITIES: No cyanosis, no edema. Peripheral pulses, full and equal in all extremities, except as noted. No bruits appreciated. ABDOMEN: Soft, nondistended. Normal aorta. No bruit. Nontender. No masses. HISTORY AND PHYSICAL [id number] SABI DILLON Liver, nontender, no hepatomegaly. Spleen, nontender, no splenomegaly. MUSCULOSKELETAL: No joint tenderness. No joint swelling. No erythema. NEUROLOGICAL: Normal gait, normal strength, normal tone. SKIN: Warm and dry. OVERALL IMPRESSION: Anginal symptomatology with significant disease of the LAD. We will proceed with transcatheter revascularization of the LAD. TRANSINT:[id number] Voice Confirmation ID: [id number] DOCUMENT ID: [id number] MAURI EARL MD at 1856 CC: [id number] DICTATION DATE: 09/11/18 1337 HAND TUBE BENDER: 09/11/18 1344 DEP CLI 09/11/18 [id number] [place] [address]
--- NOTE | ~2018-09-11 | OP ---
PATIENT NAME: SABI MILLER MEDICAL RECORD: [id number] :57 LOCATION:D.CAT ADMISSION DATE: SURGEON: MAURI EARL MD DATE OF OPERATION: 09/11/2018 PROCEDURES: 1. PTCA stent LAD. 2. Intravascular ultrasound. 3. Selective coronary angiography. INDICATION: Angina and coronary artery disease. PROCEDURE IN DETAIL: After informed consent was obtained and after a detailed description of the risks, benefits as well as alternative therapies, the patient elected to proceed with angiogram and angioplasty. The left femoral area was prepped and draped in normal sterile fashion. Left femoral artery was cannulated via modified Seldinger technique with placement of 6-Amharic sheath. All catheters exchanged through this sheath. FINDINGS: Left anterior descending has 80% stenosis in the mid vessel confirmed by intravascular ultrasound. This was addressed with a 3.0 x 15 mm Integrity. Result was 0% residual stenosis. OVERALL IMPRESSION: Successful PTCA stent of the LAD going from 80% initial stenosis to 0% residual. TRANSINT:[id number] Voice Confirmation ID: [id number] DOCUMENT ID: [id number] MAURI EARL MD at 1856 CC: [id number] DICTATION DATE: 09/11/18 1411 [place] MANAGER: 09/11/[address] [facility] CLI 09/11/18 [address] [place] [address]
[~2018-09-11 09:39] MED LIST changes: +ALENDRONATE SOD70 MG PO; +ASPIRIN81 MG PO; +FENOFIBRATE160 MG PO; +K-TAB10 MEQ PO; +LASIX20 MG PO; +LIPITOR20 MG PO; +MELATONIN 3 MG1 TAB PO; +NEXIUM40 MG PO; +PLAVIX75 MG PO
[2018-09-11 10:29] VITALS: BP 146/57; Ht 170.2 cm; Wt 84.1 kg
[2018-09-11 10:42] LABS: BASOPHILS 0.2 % (0-2); EOSINOPHILS 2.8 % (0-7); HEMATOCRIT 41.3 % (36.0-48.0); HEMOGLOBIN 14.1 g/dL (12-16); IMMATURE GRANULOCYTES 0.2 % (0-5); LYMPHOCYTES 19.8 % (15-50); MCH 31.6 pg (26.0-34.0); MCHC 34.1 g/dL (31.0-37.0); MCV 92.6 fL (80.0-100.0); MEAN PLATELET VOLUME 11.9 fL (7.4-10.4); MONOCYTES 6.8 % (2-11); NEUTROPHILS 70.2 % (40-80); PLATELET COUNT 210 10x3/uL (130-400); RBC 4.46 10x6/uL (4.00-5.40); RDW 12.6 % (11.5-14.5); WBC 6.1 10x3/uL (4.8-10.8)
[2018-09-11 10:50] LABS: ANION GAP 10.9 mmol/L (8-16); CALCIUM 9.5 mg/dL (8.5-10.1); CARBON DIOXIDE 27.3 mmol/L (21.0-32.0); CREATININE - SERUM 0.9 mg/dL (0.6-1.3); POTASSIUM - SERUM 4.2 mmol/L (3.5-5.1)
== END 2018-09-11 17:50 | disposition home or self-care (01) ==
LOC: D.CATH 09:39
PROVIDERS: Internal Medicine Interventional Cardiology
DX: I25.119 Atherosclerotic heart disease of native coronary artery with unspecified angina pectoris (principal); Z95.5 Presence of coronary angioplasty implant and graft; I73.9 Peripheral vascular disease, unspecified; Z86.73 Personal history of transient ischemic attack (TIA), and cerebral infarction without residual deficits; Z01.812 Encounter for preprocedural laboratory examination

== ENCOUNTER → 2018-12-01 18:23 | Outpatient (CLI) | payer MEDICARE, MEDICAID ==
[2018-09-11 10:29] VITALS: BMI 29.0
[2018-12-01 19:28] LABS: APPEARANCE CLEAR (CLEAR); BILIRUBIN NEGATIVE (NEGATIVE); COLOR YELLOW (YELLOW); GLUCOSE 100 mg/dL (NEGATIVE); KETONE NEGATIVE (NEGATIVE); NITRITE POSITIVE (NEGATIVE); PROTEIN 1+ mg/dL (NEGATIVE); UROBILINOGEN NORMAL (NORMAL)
[2018-12-01 19:29] LABS: BACTERIA MANY /hpf (NONE SEEN); EPITHELIAL CELLS OCC /hpf (0-5); RED CELLS - URINE 0-5 /hpf (0-5); WHITE CELLS - URINE 0-5 /hpf (0-5)
== END | disposition home or self-care (01) ==
LOC: D.LABREF 18:23
PROVIDERS: Family Medicine
DX: R30.0 Dysuria (principal)

== ENCOUNTER 2019-02-06 09:59 | Observation (INO) | payer MEDICARE, MEDICAID ==
[~2019-02-06] VITALS: Ht 170.2 cm; Wt 75.0 kg
[~2019-02-06 09:59] MED LIST changes: +HYDROCODON-ACE1 EA10 PO; -HYDROCODONE-APA1 TAB PO
[2019-02-06 10:18] LABS: BASOPHILS 0.2 % (0-2); HEMATOCRIT 40.5 % (36.0-48.0); HEMOGLOBIN 13.8 g/dL (12-16); IMMATURE GRANULOCYTES 0.2 % (0-5); LYMPHOCYTES 21.6 % (15-50); MCH 31.4 pg (26.0-34.0); MCHC 34.1 g/dL (31.0-37.0); MEAN PLATELET VOLUME 11.4 fL (7.4-10.4); MONOCYTES 5.3 % (2-11); NEUTROPHILS 71.7 % (40-80); PLATELET COUNT 215 10x3/uL (130-400); RDW 12.6 % (11.5-14.5); WBC 6.3 10x3/uL (4.8-10.8)
[2019-02-06 10:26] LABS: APTT 27.9 SECONDS (22.8-39.4); INR 0.98 (0.85-1.17); PROTIME 12.5 SECONDS (11.6-15.0)
[2019-02-06 10:31] LABS: ALBUMIN 2.7 g/dL (3.4-5.0); ALKALINE PHOSPHATASE 68 U/L (46-116); ALT (SGPT) 22 U/L (10-68); BILIRUBIN - TOTAL 0.41 mg/dL (0.2-1.3); CALC OSMOLALITY 285 mosm/kg (275-300); CALCIUM 8.6 mg/dL (8.5-10.1); CARBON DIOXIDE 32.1 mmol/L (21.0-32.0); CHLORIDE - SERUM 105 mmol/L (98-107); GLUCOSE 150 mg/dL (74-106); POTASSIUM - SERUM 4.7 mmol/L (3.5-5.1); PROTEIN - SERUM 6.2 g/dL (6.4-8.2); SODIUM 141 mmol/L (136-145); UREA NITROGEN 17 mg/dL (7-18); eGFR NON AFRICAN AMERICAN 59 mL/min (90-120)
[2019-02-06 10:43] LABS: CKMB 0.7 U/L (0.0-3.6); CREATINE KINASE 43 UL (21-215); MAGNESIUM - SERUM 1.6 mg/dL (1.8-2.4); TROPONIN-I < 0.017 ng/mL (0.000-0.060)
[2019-02-06 11:01] LABS: APPEARANCE TURBID (CLEAR); BILIRUBIN NEGATIVE (NEGATIVE); COLOR DARK YELLOW (YELLOW); GLUCOSE NEGATIVE (NEGATIVE); KETONE NEGATIVE (NEGATIVE); NITRITE POSITIVE (NEGATIVE); PROTEIN 3+ mg/dL (NEGATIVE); SPECIFIC GRAVITY 1.005 (1.005-1.020)
[2019-02-06 11:03] LABS: BACTERIA MANY /hpf (NONE SEEN); EPITHELIAL CELLS 0-5 /hpf (0-5); MUCUS >1+ /lpf (NONE SEEN); YEAST NONE SEEN /hpf (NONE SEEN)
[2019-02-06 11:04] LABS: AMORPHOUS SEDIMENT <1+ /lpf (NONE SEEN); URIC ACID CRYSTALS 0-5 /hpf (NONE SEEN)
--- NOTE | 2019-02-06 12:29 | MORECARE ---
CASE MANAGEMENT DISCHARGE SUMMARY PATIENT: SABI MILLER UNIT: [id number] ADM DATE: 02/06/19 AGE: 63 : 57 SEX: F ROOM/BED: D.1201 AUTHOR: VINNIE REYES PHYSICIAN: REFERRING PHYSICIAN: PEEWEE HENRY MD DATE OF SERVICE: 02/06/19 Discharge Plan Patient Name: SABI MILLER Facility: [facility]:[place] : 1955 Planned Disposition: Home Anticipated Discharge Date: 02/07/19 Discharge Date: Expected LOS: 1 Initial Reviewer: [email or web address] Initial Review Date: 02/06/2019 Generated: 02/06/19 1:29 pm Patient Name: SABI MILLER Page 14261 at 1229 All edits/amendments must be made on the electronic document DICTATION DATE: 02/06/19 1229 TRANSPORT TECH: CASTILLO 02/06/19 1229 RPT#: [id number] DC DATE: STATUS: ADM IN [facility] [address] [place] [address] END OF REPORT
--- NOTE | 2019-02-06 12:37 | MORECARE ---
CASE MANAGEMENT DISCHARGE SUMMARY PATIENT: SABI MILLER UNIT: [id number] ADM DATE: 02/06/19 AGE: 63 : 57 SEX: F ROOM/BED: D.1201 AUTHOR: VINNIE REYES PHYSICIAN: REFERRING PHYSICIAN: PEEWEE HENRY MD DATE OF SERVICE: 02/06/19 Discharge Plan Patient Name: SABI MILLER Facility: [facility]:[place] : 1955 Planned Disposition: Home Anticipated Discharge Date: 02/07/19 Discharge Date: Expected LOS: 1 Initial Reviewer: [email or web address] Initial Review Date: 02/06/2019 Generated: 02/06/19 1:37 pm Comments DCP- Discharge Planning Updated by [email or web address]: Deepti Downey on 02/06/19 11:[address] Patient Name: SABI MILLER Admission Status: ER Accout number: [id number] Admission Date: 02-06-2019 : 1955 Admission Diagnosis: Attending: PEEWEE HENRY Current LOS: 1 Anticipated DC Date: 02-07-2019 Planned Disposition: Home Primary Insurance: [facility] MEDICARE SOLUTIONS Discharge Planning Comments: CM met with patient and her to complete initial dc planning assessment. CM educated patient on the CM role and verbal consent given by patient to complete assessment. Patient lives at home with her and is total care. 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 Patient currently has [facility] and wishes to resume at discharge. SINDHU form signed by patient for resumption of Home Health. Signed form placed in chart and signed form given to patient. At discharge patient plans to return home and feels this is a safe discharge. Patient denied further known discharge needs at this time. CM will continue to follow and will assist as needed with dc plans/needs. Oil Truck Driver: Deepti Downey RN, [facility] DCPIA - Discharge Planning Initial Assessment Updated by [email or web address]: Deepti Downey on 02/06/19 12:30 pm * Is the patient Alert and Oriented? Yes * How many steps to enter\exit or inside your home? Ramp * PCP Dr. Jha * Pharmacy [facility] on [address] * Preadmission Environment Home with Family * ADLs Total Dependent * Equipment Bedside Commode Hospital Bed Rolling Walker Wheelchair * List name and contact numbers for known caregivers / representatives who currently or will assist patient after discharge: Aquiles Millre - spouse - [phone] Kinsey Dunnu - [phone] - son- [phone] * Verbal permission to speak to the caregivers and representatives has been obtained from the patient. Yes * Community resources currently utilized Home Health Meals on Wheels * Please name any agencies selected above. [facility] (SINDHU signed in ED for Resumption) [facility] * Additional services required to return to the preadmission environment? No * Can the patient safely return to the preadmission environment? Yes * Has this patient been hospitalized within the prior 30 days at any hospital? No Last DP export: 02/06/19 11:29 a Patient Name: SABI MILLER Page 41799 at 1237 All edits/amendments must be made on the electronic document DICTATION DATE: 02/06/19 1236 SAP ARCHITECT: CASTILLO 02/06/19 1236 RPT#: [id number] DC DATE: STATUS: ADM IN [facility] [address] [place] [address] END OF REPORT
--- NOTE | 2019-02-06 13:00 | NUR ---
RECEIVED PT TO ROOM 1201 PT A/O X4, RESP EVEN AND NONLABORED. LT SIDE IS FLACCID. ORIENTED PT TO ROOM AND CALL LIGHT, PT UNSURE OF THE MEDICATIONS SHE TAKES, ALSO DOES NOT KNOW, DID MED REC GOOD I COULD. WILL ASSESS PT AND START PLAN OF CARE.
[2019-02-06] MEDS ORDERED: VALIUM 2 MG TAB2 MG PO (13:33)
[2019-02-06 14:10] VITALS: BP 124/44; Ht 170.2 cm; Wt 75.0 kg
--- NOTE | 2019-02-06 15:12 | NUR ---
WENT TO APPLY NYSTATIN ON PT AND PT IS STILL NOT BACK IN HER ROOM. EARLIER AROUND 1450 PT REQUESTED A WHEELCHAIR, BECAUSE SHE WANTED TO GET AROUND THE ROOM ON HER OWN AND GO FOR A LITTLE STROLL WITH HER . TOLD PT NOT TO BE GONE MORE THAN 15MIN. ALSO UNABLE TO PLACED HEART MONITOR ON PT.
--- NOTE | 2019-02-06 16:45 | NUR ---
CALLED [facility] AND WAS ON HOLD FOR 10MIN TRYING TO GET SOMEONE TO FAX A COPY OF PT'S HOME MEDICATION LIST. WILL TRY AGAIN LATER OR PASS ON IN REPORT TO CDA TEACHER NURSE.
--- NOTE | 2019-02-06 17:32 | NUR ---
WENT TELLIGN THIS NURSE THAT SHE IS GOING TO GO OUTSIDE AGAIN. TOLD PT THAT SHE DOES NOT NEED TO LEAVE THE FLOOR TO GO SMOKE OUTSIDE, THAT I GAVE HER A NICOTINE PATCH. PT STILL WENT OUTSIDE A THIS TIME, ACCOMPANIED BY .
--- NOTE | 2019-02-06 18:06 | NUR ---
PT CAME UP TO NURSES STATION CRYING. STATING THAT SHE WANTS TO GO HOME THAT SHE CANNOT STAY HERE ANOTHER MINUTE. CANNOT QUIT GOING OUTSIDE TO SMOKE. STATES THAT SHE HAS A LOT OF FAMILY PROBLEMS AND SHE DOES NOT WANT TO BE HERE. CALLED DR. HENRY AND NOTIFIED HIM THAT PT WANTS TO LEAVE, AMA, DR. HENRY STATED TO GET HER TO SIGN AMA PAPERS.
--- NOTE | 2019-02-06 18:16 | NUR ---
AMA FORMED SIGNED BY PT, REMOVED RT HAND IV. HEART MONITOR REMOVED AND TAKEN TO [facility] PF.
--- NOTE | 2019-02-08 09:27 | MORECARE ---
CASE MANAGEMENT DISCHARGE SUMMARY PATIENT: SABI MILLER UNIT: [id number] ADM DATE: 02/06/19 AGE: 63 : 57 SEX: F ROOM/BED: D.1201 AUTHOR: ERICDOC PHYSICIAN: REFERRING PHYSICIAN: PEEWEE HENRY MD DATE OF SERVICE: 02/08/19 Discharge Plan Patient Name: SABI MILLER Facility: [facility]:[place] : 1955 Planned Disposition: Home Anticipated Discharge Date: 02/07/19 Discharge Date: 02/06/2019 Expected LOS: 1 Initial Reviewer: [email or web address] Initial Review Date: 02/06/2019 Generated: 02/08/19 10:27 am Comments DCP- Discharge Planning Updated by [email or web address]: Deepti Downey on 02/06/19 11:[address] Patient Name: SABI MILLER Admission Status: ER Accout number: [id number] Admission Date: 02-06-2019 : 1955 Admission Diagnosis: Attending: PEEWEE HENRY Current LOS: 1 Anticipated DC Date: 02-07-2019 Planned Disposition: Home Primary Insurance: [facility] MEDICARE SOLUTIONS Discharge Planning Comments: CM met with patient and her to complete initial dc planning assessment. CM educated patient on the CM role and verbal consent given by patient to complete assessment. Patient lives at home with her and is total care. 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 Patient currently has [facility] and wishes to resume at discharge. SINDHU form signed by patient for resumption of Home Health. Signed form placed in chart and signed form given to patient. At discharge patient plans to return home and feels this is a safe discharge. Patient denied further known discharge needs at this time. CM will continue to follow and will assist as needed with dc plans/needs. Education Assistant: Deepti Downey RN, [facility] DCPIA - Discharge Planning Initial Assessment Updated by [email or web address]: Deepti Downey on 02/06/19 12:30 pm * Is the patient Alert and Oriented? Yes * How many steps to enter\exit or inside your home? Ramp * PCP Dr. Jha * Pharmacy [facility] on [address] * Preadmission Environment Home with Family * ADLs Total Dependent * Equipment Bedside Commode Hospital Bed Rolling Walker Wheelchair * List name and contact numbers for known caregivers / representatives who currently or will assist patient after discharge: Aquiles Miller - spouse - [phone] Kinsey Dunnu - [phone] - son- [phone] * Verbal permission to speak to the caregivers and representatives has been obtained from the patient. Yes * Community resources currently utilized [facility] Me[facility] on Wheels * Please name any agencies selected above. [facility] (SINDHU signed in ED for Resumption) [employer] * Additional services required to return to the preadmission environment? No * Can the patient safely return to the preadmission environment? Yes * Has this patient been hospitalized within the prior 30 days at any hospital? No Last DP export: 02/06/19 11:37 a Patient Name: SABI MILLER Page 79534 at 0927 All edits/amendments must be made on the electronic document DICTATION DATE: 02/08/19925 INSPECTOR CIRCUITRY NEGATIVE: CASTILLO 02/08/19925 RPT#: [id number] DC DATE:02/06/19 STATUS: DIS IN [facility] [address] [place] [address] END OF REPORT
== END 2019-02-06 19:02 | disposition left against medical advice (07) ==
LOC: D.ER 09:59 → D.EDHOLD 11:48 → D.M3 11:48 → OBSVTIME 11:48 → D.M3 11:48
PROVIDERS: Emergency Medicine; ADMIT Internal Medicine Nephrology; ATTEND Internal Medicine Nephrology
DX: N39.0 Urinary tract infection, site not specified (principal); I69.354 Hemiplegia and hemiparesis following cerebral infarction affecting left non-dominant side; E83.42 Hypomagnesemia; I10 Essential (primary) hypertension; K21.9 Gastro-esophageal reflux disease without esophagitis; F17.213 Nicotine dependence, cigarettes, with withdrawal; F41.9 Anxiety disorder, unspecified; F32.9 Major depressive disorder, single episode, unspecified; I48.91 Unspecified atrial fibrillation; I25.10 Atherosclerotic heart disease of native coronary artery without angina pectoris

== ENCOUNTER → 2019-06-14 13:44 | Outpatient (CLI) | payer MEDICARE, MEDICAID ==
[2019-02-06 14:10] VITALS: BMI 25.9
[~2019-06-14 13:44] MED LIST changes: +VALIUM 2 MG TAB2 MG PO
[2019-06-14 14:42] LABS: APPEARANCE TURBID (CLEAR); BACTERIA MANY /hpf (NONE SEEN); BILIRUBIN NEGATIVE (NEGATIVE); COLOR YELLOW (YELLOW); EPITHELIAL CELLS OCC /hpf (0-5); GLUCOSE NEGATIVE (NEGATIVE); KETONE NEGATIVE (NEGATIVE); MUCUS <1+ /lpf (NONE SEEN); NITRITE NEGATIVE (NEGATIVE); PROTEIN 3+ mg/dL (NEGATIVE); RED CELLS - URINE RARE /hpf (0-5); SPECIFIC GRAVITY 1.005 (1.005-1.020); TRIPLE PHOSPHATE CRYSTALS OCC /hpf (NONE SEEN); UROBILINOGEN NORMAL (NORMAL); WHITE CELLS - URINE 0-5 /hpf (0-5)
== END | disposition home or self-care (01) ==
LOC: D.LABREF 13:44
PROVIDERS: ATTEND Family Medicine
DX: M54.9 Dorsalgia, unspecified (principal); R30.0 Dysuria

== ENCOUNTER → 2019-09-09 20:08 | Outpatient (CLI) | payer MEDICARE, MEDICAID ==
[2019-02-06 14:10] VITALS: BMI 25.9
[2019-09-09 20:44] LABS: APPEARANCE CLOUDY (CLEAR); BILIRUBIN NEGATIVE (NEGATIVE); COLOR YELLOW (YELLOW); GLUCOSE NEGATIVE (NEGATIVE); KETONE NEGATIVE (NEGATIVE); NITRITE NEGATIVE (NEGATIVE); PROTEIN 3+ mg/dL (NEGATIVE); SPECIFIC GRAVITY 1.015 (1.005-1.020); UROBILINOGEN NORMAL (NORMAL)
[2019-09-09 20:45] LABS: BACTERIA MANY /hpf (NEGATIVE); EPITHELIAL CELLS NSEEN /hpf (0-5); RED CELLS - URINE 0-5 /hpf (0-5)
== END | disposition home or self-care (01) ==
LOC: D.LABREF 20:08
PROVIDERS: ATTEND Urology
DX: R30.9 Painful micturition, unspecified (principal)

== ENCOUNTER 2020-03-03 11:11 | Inpatient (IN) | payer MEDICARE, MEDICAID ==
[~2020-03-03] VITALS: Ht 170.2 cm; Wt 72.6 kg
[2020-03-03 11:47] LABS: APTT 25.3 SECONDS (22.8-39.4); INR 0.92 (0.85-1.17); PROTIME 12.3 SECONDS (11.6-15.0)
[2020-03-03 11:52] LABS: CALC OSMOLALITY 285 mosm/kg (275-300); CALCIUM 8.7 mg/dL (8.5-10.1); CARBON DIOXIDE 25.8 mmol/L (21.0-32.0); CHLORIDE - SERUM 109 mmol/L (98-107); CREATININE - SERUM 0.8 mg/dL (0.6-1.3); GLUCOSE 158 mg/dL (74-106); POTASSIUM - SERUM 3.5 mmol/L (3.5-5.1); SODIUM 142 mmol/L (136-145); UREA NITROGEN 13 mg/dL (7-18); eGFR NON AFRICAN AMERICAN 77 mL/min (90-120)
[2020-03-03 12:09] LABS: ALBUMIN 2.9 g/dL (3.4-5.0); ALKALINE PHOSPHATASE 94 U/L (30-120); ALT (SGPT) 18 U/L (10-68); BILIRUBIN - TOTAL 0.23 mg/dL (0.2-1.3); CKMB 0.4 U/L (0.0-3.6); CREATINE KINASE 32 UL (21-215); MAGNESIUM - SERUM 1.9 mg/dL (1.8-2.4); PRO BNP 573 pg/mL (0-125); THYROID STIMULATING HORMONE 1.13 uIU/mL (0.36-3.74); TROPONIN-I < 0.017 ng/mL (0.000-0.060)
[2020-03-03 12:43] LABS: BASOPHILS 0.1 % (0-2); HEMATOCRIT 39.4 % (36.0-48.0); IMMATURE GRANULOCYTES 0.2 % (0-5); LYMPHOCYTES 17.3 % (15-50); MCH 31.8 pg (26.0-34.0); MCV 96.3 fL (80.0-100.0); MEAN PLATELET VOLUME 11.9 fL (7.4-10.4); MONOCYTES 5.4 % (2-11); PLATELET COUNT 188 10x3/uL (130-400); RBC 4.09 10x6/uL (4.00-5.40); RDW 12.9 % (11.5-14.5); WBC 8.6 10x3/uL (4.8-10.8)
[2020-03-03 14:34] LABS: BILIRUBIN NEGATIVE (NEGATIVE); GLUCOSE NEGATIVE (NEGATIVE); KETONE NEGATIVE (NEGATIVE); NITRITE NEGATIVE (NEGATIVE)
[2020-03-03 14:35] LABS: BACTERIA MANY /hpf (NEGATIVE); EPITHELIAL CELLS 0-5 /hpf (0-5); RED CELLS - URINE RARE /hpf (0-5); WHITE CELLS - URINE 0-5 /hpf (NEGATIVE)
--- NOTE | 2020-03-03 15:53 | NUR ---
SPOKE WITH PATIENTS SPOUSE VIA TELEPHINE
--- NOTE | 2020-03-03 18:15 | NUR ---
SHE IS COMING DOWN THE HALLWAY TO THE ROOM YELLING IN THE HALLWAY, SHE IS YELLING "I DON'T WANT TO BE HERE", "YOU CAN'T KEEP ME HERE AGAINST MY WILL". FLORIAN UMANG IS HERE SEEING HER. SHE WILL NOT MOVE TO THE BED, SHE IS ON THE ER CHART. SHE IS TALKING ON THE PHONE AND CRYING.
[2020-03-03 22:00] VITALS: BP 109/52; BMI 25.1
[2020-03-04 04:00] VITALS: BP 134/65
[2020-03-04 06:56] LABS: HEMOGLOBIN 13.1 g/dL (12-16); LYMPHOCYTES 12.4 % (15-50); MCH 31.7 pg (26.0-34.0); MCHC 33.6 g/dL (31.0-37.0); MCV 94.4 fL (80.0-100.0); MEAN PLATELET VOLUME 11.2 fL (7.4-10.4); NEUTROPHILS 81.7 % (40-80); PLATELET COUNT 222 10x3/uL (130-400); RBC 4.13 10x6/uL (4.00-5.40); RDW 12.8 % (11.5-14.5); WBC 9.5 10x3/uL (4.8-10.8)
[2020-03-04 07:08] LABS: ALBUMIN 2.6 g/dL (3.4-5.0); ANION GAP 12.5 mmol/L (8-16); BILIRUBIN - TOTAL 0.38 mg/dL (0.2-1.3); CALCIUM 8.6 mg/dL (8.5-10.1); CREATININE - SERUM 0.9 mg/dL (0.6-1.3); MAGNESIUM - SERUM 1.9 mg/dL (1.8-2.4); PHOSPHOROUS 4.2 mg/dL (2.5-4.9); POTASSIUM - SERUM 3.5 mmol/L (3.5-5.1); PROTEIN - SERUM 5.5 g/dL (6.4-8.2)
[2020-03-04 09:09] VITALS: BMI 25.0
[2020-03-04 09:19] VITALS: BP 155/66
--- NOTE | 2020-03-04 11:44 | NUR ---
resting in bed, no distress noted, assisted with am meal, tao well, takes po meds crushed, cont to monitor sugars and output
[2020-03-04 12:43] VITALS: BP 117/49
[2020-03-04 13:42] LABS: CHOL - HDL RATIO 5.1 ratio (2.3-4.1); LDL-HDL RATIO 2.8 ratio (1.5-3.5)
--- NOTE | 2020-03-04 17:25 | NUR ---
PT SLEPT SEVERAL HOURS THIS PM, CONT TO MONITOR, VITALS WNL, SUGARS WNL
[2020-03-04 17:54] VITALS: BP 126/57
[2020-03-04 20:00] VITALS: BP 142/55
--- NOTE | 2020-03-04 20:15 | NUR ---
PATIENT COMPLAINING OF PAIN 06/05.PATIENT HAS BEEN YELLING FROM HER ROOM ABOUT HER PAIN. CALLED PROVIDER AND THEY WOULD NOT GIVE ANY OTHER PAIN MEDICINE FOR HER. TOLD HER WE WOULD TRY HER VALIUM TO SEE IF THAT WOULD HELP HER SLEEP. WILL CONTINUE TO ASSESS PATIENT.
[2020-03-05] VITALS: BP 136/80
[2020-03-05 04:00] VITALS: BP 110/51
[2020-03-05 07:04] LABS: HEMATOCRIT 38.1 % (36.0-48.0); HEMOGLOBIN 12.7 g/dL (12-16); LYMPHOCYTES 26.7 % (15-50); MCH 31.5 pg (26.0-34.0); MCHC 33.3 g/dL (31.0-37.0); MCV 94.5 fL (80.0-100.0); NEUTROPHILS 66.8 % (40-80); PLATELET COUNT 196 10x3/uL (130-400); RBC 4.03 10x6/uL (4.00-5.40); RDW 12.6 % (11.5-14.5); WBC 7.2 10x3/uL (4.8-10.8)
--- NOTE | 2020-03-05 07:38 | NUR ---
RESTING IN BED, NO DISTRESS NOTED, EYES CLOSED, CONT TO MONITOR
[2020-03-05 07:40] LABS: ANION GAP 11.5 mmol/L (8-16); CALCIUM 8.5 mg/dL (8.5-10.1); CARBON DIOXIDE 26.9 mmol/L (21.0-32.0); MAGNESIUM - SERUM 1.9 mg/dL (1.8-2.4); POTASSIUM - SERUM 3.4 mmol/L (3.5-5.1)
[2020-03-05 08:00] VITALS: BP 129/53
--- NOTE | 2020-03-05 10:51 | NUR ---
INCONT CARE PROVIDED, FED BY STAFF, APPETITE GOOD, CONT TO MONITOR
[2020-03-05 12:00] VITALS: BP 119/51
[2020-03-05 16:00] VITALS: BP 106/47
[2020-03-05 20:00] VITALS: BP 124/44
[2020-03-06] VITALS (7 sets, daily range): BP systolic 125–164; BP diastolic 41–71
[2020-03-06 04:54] LABS: HEMATOCRIT 37.6 % (36.0-48.0); HEMOGLOBIN 12.4 g/dL (12-16); LYMPHOCYTES 31.1 % (15-50); MCH 31.3 pg (26.0-34.0); MCV 94.9 fL (80.0-100.0); MEAN PLATELET VOLUME 11.3 fL (7.4-10.4); NEUTROPHILS 62.4 % (40-80); PLATELET COUNT 191 10x3/uL (130-400); RBC 3.96 10x6/uL (4.00-5.40); WBC 6.5 10x3/uL (4.8-10.8)
[2020-03-06 04:59] LABS: ANION GAP 10.1 mmol/L (8-16); CALCIUM 8.5 mg/dL (8.5-10.1); CARBON DIOXIDE 28.8 mmol/L (21.0-32.0); MAGNESIUM - SERUM 1.8 mg/dL (1.8-2.4); POTASSIUM - SERUM 3.9 mmol/L (3.5-5.1)
--- NOTE | 2020-03-06 07:36 | NUR ---
PT RESTING QUIETLY IN BED. RESP EVEN AND UNLABORED. PT ALERT, ORIENTED TO PERSON, PLACE AND TIME AT THIS TIME. VOICES SOME CONFUSION TO HOW SHE GO INTO HOSPITAL. O2@ 2L NC IN PLACE. PT DENIES PAIN AT THIS TIME. SALINE LOC TO RIGHT AC INTACT, SITE WITHOUT REDNESS OR EDEMA. DENIES FURTHER NEEDS AT THIS TIME. CL WITHIN REACH. ENCOURAGED TO CALL WITH NEEDS. CONTINUE POC
--- NOTE | 2020-03-06 09:50 | NUR ---
PT RESTING WITH EYES CLOSED. RESP EVEN AND UNLABORED. PT AROUSES TO TOUCH AND STATES TO STAFF "SHHHH BE QUIET, IM TRYING TO SLEEP". CL WITHIN REACH. ENCOURAGED TO CALL WITH NEEDS. CONTINUE POC
--- NOTE | 2020-03-06 10:13 | NUR ---
Rehab Note- Acute Inpatient Rehab Eval received 03/03, not notified at that time. Henry patient has [facility] insurance and will require a PreAuth- has a pending OT Eval at this time that will be needed. Per PT Eval, the patient has been wc bound and total lift per family- maybe too low for inpatient acute rehab but will await OT Eval and follow for possible funtional improvement. Also has a pending MRI since 03/04. Will continue to follow at this time. Thank you for this referral! Divya Vickers RN Clinical Liaison, [facility] Rehab
--- NOTE | 2020-03-06 11:14 | NUR ---
PT PROVIDED PERICARE AT THIS TIME. PUREWICK PLACED. COCCYX REDENNED WITH SLOW BLANCHING NOTED. TEGADERM IN PLACE TO COCCYX. PT DENIES FURTHER NEEDS AT THIS TIME. CL WITHIN REACH. ENCOURAGED TO CALL WITH NEEDS.
--- NOTE | 2020-03-06 11:17 | NUR ---
MRI BRAIN ORDERED 03/04/2020. PT IS UNABLE TO SCREEN HERSELF. WE HAVE TRIED TO CALL HER SON EACH DAY TO SEE IF HE KNOWS HER MEDICAL HISTORY. 03/04 AT 1845, 03/05 AT 1515 AND 03/[address] HENRY WAS NOTIFIED ON 03/04 AND 03/05 OF THE STATUS ON THIS EXAM. JAMI HEARD CALLED TO CHECK ON STATUS AND WE UPDATED HER TODAY 03/06 AT 1115. WILL CONTINUE ATTEMPTS TO CONTACT SON.
--- NOTE | 2020-03-06 12:10 | NUR ---
BLANCHABLE REDNESS NOTED TO SACRUM/COCCYX - PROTECTED WITH MEPILEX. LEFT KNEE HAS SMALL SCABBED AREA 0.3CM X 0.3CM. THIS TOO IS COVERED/PROTECTED WITH MEPILEX. PT CAN TURN/REPOSITION WITH MINIMAL ASSISTANCE. PT IS INCONTINENT AND HAS EXTERNAL FEMALE CATH. WOUND CARE WILL CONTINUE MONITORING.
--- NOTE | 2020-03-06 14:27 | NUR ---
PT TRANSFERRED TO [facility] TO [facility]. PERSONAL BELONGINGS SENT WITH PT.
--- NOTE | 2020-03-06 15:00 | NUR ---
PT VOIDED LARGE AMOUNT OF INCONTINENT URINE. ROGELIO CARE PROVIDED WITH LINEN CHANGE AT THIS TIME. PT RADHA WELL. IV TO RIGHT AC BECAME DISLODGED, CATH INTACT. NO BLEEDING FROM SITE.
--- NOTE | 2020-03-06 15:29 | NUR ---
IV RESITED TO RIGHT FOREARM 22G X 2 STICKS. GOOD BLOOD RETURN. EASILY FLUSHED. PT RADHA WELL.
--- NOTE | 2020-03-06 15:50 | NUR ---
ATTEMPTED TO CALL PATIENT'S SON AT [phone]. STILL NO ANSWER.
--- NOTE | 2020-03-06 16:21 | NUR ---
OT NOTE: PT COMPLETED BUE PROM TOLERATED. PT COMPLETED FACE HYGIENE WITH TOTAL A. PT IS WEAK AND UNABLE TO ASSIST WITH SIMPLE TASKS. [phone] THANK YOU,FAROOQ ESTES
--- NOTE | 2020-03-06 17:55 | NUR ---
ATTEMPTED TO ASSIST PT WITH ALL MEALS TODAY. PT WAS ASLEEP AT BREAKFAST, ARROUSED WITH STERNAL RUB, BUT WOULD NOT ARROUSE ENOUGH TO CONSUME MEAL. 0930 PT AWAKE, VOICING THIRST. CONSUMED BOOST AND CUP OF COFFEE. AT LUNCH MEAL PT BACK TO SLEEP AND UNABLE TO AROUSE ENOUGH TO ASSIST WITH FEEDING. 1430, PT AWAKE REQUESTING SOMETHING TO EAT AND DRINK. ASSISTED PT WITH EATING JELLO, APPLESAUCE AND JORDAN CRACKERS AND CONSUMED JUICE AND WATER. AT DINNER MEAL AGAIN PT IS ASLEEP AND WILL NOT AROUSE ENOUGH TO SAFELY CONSUME FOOD. MEAL TRAY KEPT.
--- NOTE | 2020-03-07 01:19 | NUR ---
I have reviewed this patient and I concur with the Shift Assessment completed by the Licensed Practical Nurse today this shift.
[2020-03-07 04:00] VITALS: BP 120/69
[2020-03-07 04:52] LABS: HEMATOCRIT 40.1 % (36.0-48.0); HEMOGLOBIN 13.3 g/dL (12-16); LYMPHOCYTES 35.2 % (15-50); MCH 31.4 pg (26.0-34.0); MCHC 33.2 g/dL (31.0-37.0); MCV 94.8 fL (80.0-100.0); MEAN PLATELET VOLUME 11.2 fL (7.4-10.4); NEUTROPHILS 58.6 % (40-80); PLATELET COUNT 199 10x3/uL (130-400); RBC 4.23 10x6/uL (4.00-5.40); WBC 6.6 10x3/uL (4.8-10.8)
[2020-03-07 06:13] LABS: CALCIUM 9.2 mg/dL (8.5-10.1); CARBON DIOXIDE 29.7 mmol/L (21.0-32.0); CHLORIDE - SERUM 108 mmol/L (98-107); MAGNESIUM - SERUM 1.9 mg/dL (1.8-2.4); POTASSIUM - SERUM 3.6 mmol/L (3.5-5.1); SODIUM 144 mmol/L (136-145); eGFR NON AFRICAN AMERICAN 90 mL/min (90-120)
[2020-03-07 06:15] LABS: CALC OSMOLALITY 286 mosm/kg (275-300); CREATININE - SERUM 0.7 mg/dL (0.6-1.3); GLUCOSE 76 mg/dL (74-106); UREA NITROGEN 14 mg/dL (7-18)
[2020-03-07 09:03] VITALS: BP 173/52
--- NOTE | 2020-03-07 09:28 | NUR ---
SHE IS ASKING TO BE FED, I FED HER. SHE TOOK HER MEDIACATIONS WITHOUT ANY PROBLEMS.
--- NOTE | 2020-03-07 09:53 | NUR ---
Rehab Note- Per both PT & OT Evals the patient is too low level functionally for inpatient acute rehab a this time. Would recommend SNF at this time. Thank you for this referral! Divya Vickers RN Clinical Liaison, [facility] Rehab
--- NOTE | 2020-03-07 10:11 | MORECARE ---
CASE MANAGEMENT DISCHARGE SUMMARY PATIENT: SABI MILLER UNIT: [id number] ADM DATE: 03/03/20 AGE: 64 : 57 SEX: F ROOM/BED: D.2201 AUTHOR: VINNIE REYES PHYSICIAN: REFERRING PHYSICIAN: PEEWEE HENRY MD DATE OF SERVICE: 03/07/20 Discharge Plan Patient Name: SABI MILLER Facility: [facility]:[place] : 1955 Planned Disposition: Inpatient Rehab Anticipated Discharge Date: Discharge Date: Expected LOS: Initial Reviewer: [email or web address] Initial Review Date: 03/03/2020 Generated: 03/07/20 11:11 am Patient Name: SABI MILLER Page 08605 at 1011 All edits/amendments must be made on the electronic document DICTATION DATE: 03/07/20 1011 FEED MILL LAB TECHNICIAN: CASTILLO 03/07/20 1011 RPT#: [id number] DC DATE: STATUS: ADM IN [facility] [address] [place] [address] END OF REPORT
--- NOTE | 2020-03-07 10:19 | MORECARE ---
CASE MANAGEMENT DISCHARGE SUMMARY PATIENT: SABI MILLER UNIT: [id number] ADM DATE: 03/03/20 AGE: 64 : 57 SEX: F ROOM/BED: D.2201 AUTHOR: VINNIE REYES PHYSICIAN: REFERRING PHYSICIAN: PEEWEE HENRY MD DATE OF SERVICE: 03/07/20 Discharge Plan Patient Name: SABI MILLER Facility: [facility]:[place] : 1955 Planned Disposition: Inpatient Rehab Anticipated Discharge Date: Discharge Date: Expected LOS: Initial Reviewer: [email or web address] Initial Review Date: 03/03/2020 Generated: 03/07/20 11:18 am Comments DCP- Discharge Planning Updated by [email or web address]: Randi Malik on 03/07/20 9:[address] Patient Name: SABI MILLER Admission Status: ER Accout number: [id number] Admission Date: 03-03-2020 : 1955 Admission Diagnosis: Attending: PEEWEE HENRY Current LOS: 4 Anticipated DC Date: Planned Disposition: Inpatient Rehab Primary Insurance: [facility] MEDICARE SOLUTIONS Discharge Planning Comments: CM met with patient to complete initial dc planning assessment. CM educated patient on the CM role and verbal consent given by patient to complete assessment. Patient lives at home with her spouse and adult son, where she stated that she was able to transfer herself with her transfer board and feed herself with her good arm. When I was speaking with the patient, she stated that she is not able to use her good arm AT ALL. She could not last picker her coffee cup or push the call light. She has a ramp, BSC, Shower chair, transfer board, electric wheelchair, reg wheelchair at home. She stated that she has an aide service out of [facility] who comes daily & she was current with [facility]. She would like to go to our Inpatient rehab at [facility] as her first choice. Her second choice is [facility] and rehab. She does NOT want to go back to [place]. CM will continue to follow and assist as needed Asphalt Paving Foreman: Randi Malik DCPIA - Discharge Planning Initial Assessment Updated by [email or web address]: Randi Malik on 03/07/20 10:11 am * Is the patient Alert and Oriented? Yes * How many steps to enter\exit or inside your home? RAMP * PCP COURTNEY * [facility]acy [facility] * Preadmission Environment Home with Family * ADLs Partial Dependent * Partial ADLs (Assistance needed) Ambulation Bathing Dressing Medication Management Toileting * Equipment Elevated Toliet Seat Other Power Chair or Electric Scooter Shower Chair Tub Bench Wheelchair * Other Equipment TRANSFER BOARD * List name and contact numbers for known caregivers / representatives who currently or will assist patient after discharge: TOBY (SPOUSE) ROOPA (SON) [phone] * Verbal permission to speak to the caregivers and representatives has been obtained from the patient. Yes * Community resources currently utilized [facility] * Please name any agencies selected above. AIDE SERVICE OUT OF [facility] WITH ALDO * Additional services required to return to the preadmission environment? Yes * Can the patient safely return to the preadmission environment? No * Has this patient been hospitalized within the prior 30 days at any hospital? No Last DP export: 03/07/20 9:11 a Patient Name: SABI MILLER Page 14644 at 1019 All edits/amendments must be made on the electronic document DICTATION DATE: 03/07/20 1018 DIRECTOR PROPERTY: CASTILLO 03/07/20 1018 RPT#: [id number] DC DATE: STATUS: ADM IN [facility] [address] [place] [address] END OF REPORT
--- NOTE | 2020-03-07 13:04 | NUR ---
OT NOTE: PT MORE ALERT TODAY. PT EXPLAINED THAT SHE WAS ABLE TO USE TRANSFER BOARD AT HOME AND WAS ABLE TO DO IT INDEP...SHE STATES THAT SHE HAD GOOD USE OF HER RIGHT SIDE PRIOR TO THIS INITIAL CVA. PT NOW REQUIRES TOTAL ASSIST WITH ALL MOBILTIY AND ADLS. REQUIRED MAX ASSIST X 2 FOR ROLLING. PT WAS INCONT OF BOWEL AND HAD TO BE CLEANED. PT REQUIRED MAX ASSIST WITH FEEDING AND DRINKING. STILL UNABLE TO HOLD CUP EVEN WITH BOTH HANDS DUE TO WEAKENSS. SUPINE TO SIT WITH MAX ASSIST; REQUIRED MAX ASSIST WITH EOB SITTING DUE TO POOR TRUNK STRENGTH. LAWRENCE VALDERRAMA, OTR/L [phone]
[2020-03-07 15:00] VITALS: Ht 170.2 cm; Wt 72.6 kg
--- NOTE | 2020-03-07 15:49 | NUR ---
OT NOTE: PT COMPLETED UE AAROM/PROM TO FACILITATE NEURO RE-ED. PT REQUIRED TOTAL A WITH UB HYGIENE TASKS. [phone] THANK YOU,FAROOQ ESTES
[2020-03-07 17:43] VITALS: BP 148/64
[2020-03-07 20:00] VITALS: BP 143/58
--- NOTE | 2020-03-07 20:00 | NUR ---
ALERT RESTING IN BED DENIES PAIN OR NEEDS AT THIS TIME, SEE SHIFT ASSESSMENT, CALL LIGHT IN REACH
[2020-03-08 04:00] VITALS: BP 160/59
[2020-03-08 04:57] LABS: BASOPHILS 0.2 % (0-2); EOSINOPHILS 2.6 % (0-7); HEMATOCRIT 39.3 % (36.0-48.0); HEMOGLOBIN 12.5 g/dL (12-16); IMMATURE GRANULOCYTES 0.2 % (0-5); MCH 30.9 pg (26.0-34.0); MCHC 31.8 g/dL (31.0-37.0); MEAN PLATELET VOLUME 11.4 fL (7.4-10.4); MONOCYTES 7.2 % (2-11); NEUTROPHILS 64.8 % (40-80); PLATELET COUNT 213 10x3/uL (130-400); RBC 4.05 10x6/uL (4.00-5.40); RDW 13.1 % (11.5-14.5); WBC 6.6 10x3/uL (4.8-10.8)
[2020-03-08 05:11] LABS: ANION GAP 9.6 mmol/L (8-16); CALCIUM 8.4 mg/dL (8.5-10.1); MAGNESIUM - SERUM 1.8 mg/dL (1.8-2.4); POTASSIUM - SERUM 3.6 mmol/L (3.5-5.1)
[2020-03-08 09:53] VITALS: BP 168/57
--- NOTE | 2020-03-08 10:00 | NUR ---
SHE IS YELLING OUT, SHE IS FORGETFUL, SAYS SHE HAS NOT ATE, WHEN STAFF HAS FED HER. HER , DON HAS CALLED TO CHECK ON HER.
--- NOTE | 2020-03-08 10:38 | NUR ---
Nutrition follow-up: Pt sitting in bed eating breakfast. Diet: Consistent CHO PO Intake ~75% average of meals Labs reviewed +BM Wt: 160# RDN following.
[2020-03-08 13:21] VITALS: BP 136/65
--- NOTE | 2020-03-08 13:31 | MORECARE ---
CASE MANAGEMENT DISCHARGE SUMMARY PATIENT: SABI MILLER UNIT: [id number] ADM DATE: 03/03/20 AGE: 64 : 57 SEX: F ROOM/BED: D.2201 AUTHOR: VINNIE REYES PHYSICIAN: REFERRING PHYSICIAN: PEEWEE HENRY MD DATE OF SERVICE: 03/08/20 Discharge Plan Patient Name: SABI MILLER Facility: [facility]:[place] : 1955 Planned Disposition: Inpatient Rehab Anticipated Discharge Date: Discharge Date: Expected LOS: Initial Reviewer: [email or web address] Initial Review Date: 03/03/2020 Generated: 03/08/20 2:30 pm DCP- Discharge Planning Updated by [id number]: Randi Malik on 03/07/20 9:[address] Patient Name: SABI MILLER Admission Status: ER Accout number: [id number] Admission Date: 03-03-2020 : 1955 Admission Diagnosis: Attending: PEEWEE HENRY Current LOS: 4 Anticipated DC Date: Planned Disposition: Inpatient Rehab Primary Insurance: [facility] MEDICARE SOLUTIONS Discharge Planning Comments: CM met with patient to complete initial dc planning assessment. CM educated patient on the CM role and verbal consent given by patient to complete assessment. Patient lives at home with her spouse and adult son, where she stated that she was able to transfer herself with her transfer board and feed herself with her good arm. When I was speaking with the patient, she stated that she is not able to use her good arm AT ALL. She could not cherry picker operator her coffee cup or push the call light. She has a ramp, BSC, Shower chair, transfer board, electric wheelchair, reg wheelchair at home. She stated that she has an aide service out of [facility] who comes daily & she was current with [facility]. She would like to go to our Inpatient rehab at [facility] as her first choice. Her second choice is [facility] and rehab. She does NOT want to go back to [place]. CM will continue to follow and assist as needed Environmental Advisor: Randi Malik DCPIA - Discharge Planning Initial Assessment Updated by [email or web address]: Randi Malik on 03/07/20 10:11 am * Is the patient Alert and Oriented? Yes * How many steps to enter\exit or inside your home? RAMP * PCP COURTNEY * [facility] * Preadmission Environment Home with Family * ADLs Partial Dependent * Partial ADLs (Assistance needed) Ambulation Bathing Dressing Medication Management Toileting * Equipment Elevated [place] Seat Other Power Chair or Electric Scooter Shower Chair Tub Bench Wheelchair * Other Equipment TRANSFER BOARD * List name and contact numbers for known caregivers / representatives who currently or will assist patient after discharge: TOBY (SPOUSE) ROOPA (SON) [phone] * Verbal permission to speak to the caregivers and representatives has been obtained from the patient. Yes * Community resources currently utilized [facility] * Please name any agencies selected above. AIDE SERVICE OUT OF [facility] WITH ALDO * Additional services required to return to the preadmission environment? Yes * Can the patient safely return to the preadmission environment? No * Has this patient been hospitalized within the prior 30 days at any hospital? No External Providers External Provider[facility] Next Contact Date: Service Request Date: Service Type: Resolution: Reviewer: Comments: Coverage Notice Reviewer: [id number] - Randi Malik Notice Issued Date-Time: 03/07/2020 8:45 Notice Type: Patient Choice Letter Notice Delivered To: Patient Relationship to Patient: Seam Finisher Name: Delivery Method: HAND - Hand Delivered Rosemary Days: Prior Verbal Notification: Recipient Understood Notice: Yes Recipient Signature: Yes Med Rec Note Co-signed by Attending: Coverage Notice Comment: Last DP export: 03/07/20 9:18 a Patient Name: SABI MILLER Page 34118 at 1331 All edits/amendments must be made on the electronic document DICTATION DATE: 03/08/20 1330 SOCIAL WORK CASE MANAGER: CASTILLO 03/08/20 1330 RPT#: [id number] DC DATE: STATUS: ADM IN [facility] [address] [place] [address] END OF REPORT
--- NOTE | 2020-03-08 15:35 | NUR ---
OT NOTE: PT EXHIBITING INCREASED MOVEMENT IN R UE TODAY. PT ABLE TO PERFORM PROTRACTION/RETRACTION WITH 2+/5 STRENGTH; SHOULDER FLEX WITH GRAVITY ELEMINATED; IMPROVEMENT IN COMMUNICATION EQUIPMENT REPAIRER STRENGTH (2+3-/5) PT STILL UNABLE TO GRASP CUP; ATTEMPTED TO PLACE TAPE AROUND OUTSIDE OF CUP TO PREVENT SLIPAGE, HOWVER, PT DOES NOT HAVE STRONG ENOUGH COMMUNICATION EQUIPMENT REPAIRER AT THIS TIME; BUT DEFINITELY IMPROVED FROM YESTERDAY. PT ABLE TO PERFORM STATIC SITTING WITH MIN ASSIST VS MAX ASSIST YESTERDAY; ABLE TO PERFORM WT BEARING THROUGH R UE WITH MOD ASSIST; ATTEMPTED LE EXS WHILE SITTING ON EOB. CHECKED ON PT SEVERAL TIMES THROUGHOUT THE DAY, SHE WAS YELLING FOR HELP AND CRYING BECAUSE SHE DID NOT LIKE BEING ALONE. RECOMMEND IP REHAB PT SHOWING GOOD PROGRESS. LAWRENCE VALDERRAMA, OTR/L [phone]
[2020-03-08 16:46] VITALS: BP 149/62
--- NOTE | 2020-03-08 17:41 | NUR ---
OT NOTE: PT REQUIRED MAX A FOR BED POSITIONING . PT COMPLETED BUE AAROM TO FACILITATE NEURO RE-ED. PT COMPLETED FACE HYGIENE WITH MAX A. [phone] THANK YOU,FAROOQ ESTES
--- NOTE | 2020-03-08 20:45 | NUR ---
SUPINE IN BED, AROUSES TO BERAL STIMULATION. REQUESTS MEDS BE CRUSHED AND MIXED WITH CHOCOLATE PUDDING. TOLERATED WELL, PT BACK ASLEEP. DENIES PAIN/DISCOMFORT. SCDs IN USE. CONTINUE TO MONITOR
[2020-03-09] VITALS: BP 147/56
[2020-03-09 04:00] VITALS: BP 160/62
[2020-03-09 04:23] LABS: BASOPHILS 0 % (0-2); EOSINOPHILS 3.3 % (0-7); HEMATOCRIT 38.1 % (36.0-48.0); HEMOGLOBIN 12.2 g/dL (12-16); IMMATURE GRANULOCYTES 0.2 % (0-5); LYMPHOCYTES 33.3 % (15-50); MCV 96.7 fL (80.0-100.0); MEAN PLATELET VOLUME 11.2 fL (7.4-10.4); MONOCYTES 6.4 % (2-11); NEUTROPHILS 56.8 % (40-80); PLATELET COUNT 222 10x3/uL (130-400); RBC 3.94 10x6/uL (4.00-5.40); WBC 6.1 10x3/uL (4.8-10.8)
[2020-03-09 04:44] LABS: ANION GAP 10.9 mmol/L (8-16); CALCIUM 8.5 mg/dL (8.5-10.1); CARBON DIOXIDE 28.8 mmol/L (21.0-32.0); CREATININE - SERUM 0.9 mg/dL (0.6-1.3); MAGNESIUM - SERUM 1.8 mg/dL (1.8-2.4); POTASSIUM - SERUM 3.7 mmol/L (3.5-5.1)
--- NOTE | 2020-03-09 06:00 | NUR ---
pt has not voideded yet, bladderscan reads 707ml.
--- NOTE | 2020-03-09 06:30 | NUR ---
incontinent void, bladder scan afterwards reads 457.
--- NOTE | 2020-03-09 06:54 | NUR ---
I have reviewed this patient and I concur with the Shift Assessment completed by the Licensed Practical Nurse today this shift.
[2020-03-09 08:45] VITALS: BP 106/58
--- NOTE | 2020-03-09 09:05 | MORECARE ---
CASE MANAGEMENT DISCHARGE SUMMARY PATIENT: SABI MILLER UNIT: [id number] ADM DATE: 03/03/20 AGE: 64 : 57 SEX: F ROOM/BED: D.2201 AUTHOR: VINNIE REYES PHYSICIAN: REFERRING PHYSICIAN: PEEWEE HENRY MD DATE OF SERVICE: 03/09/20 Discharge Plan Patient Name: SABI MILLER Facility: [facility]:[place] : 1955 Planned Disposition: Inpatient Rehab Anticipated Discharge Date: Discharge Date: Expected LOS: Initial Reviewer: [id number] Initial Review Date: 03/03/2020 Generated: 03/09/20 10:04 am Comments DCP- Discharge Planning Updated by [email or web address]: Randi Malik on 03/09/20 7:[address] UPDATED CLINICALS FAXED TO [facility] DCP- Discharge Planning Updated by [id number]: Randi Malik on 03/07/20 9:[address] Patient Name: SABI MILLER Admission Status: ER Accout number: [id number] Admission Date: 03-03-2020 : 1955 Admission Diagnosis: Attending: PEEWEE HENRY Current LOS: 4 Anticipated DC Date: Planned Disposition: Inpatient Rehab Primary Insurance: [facility] MEDICARE SOLUTIONS Discharge Planning Comments: CM met with patient to complete initial dc planning assessment. CM educated patient on the CM role and verbal consent given by patient to complete assessment. Patient lives at home with her spouse and adult son, where she stated that she was able to transfer herself with her transfer board and feed herself with her good arm. When I was speaking with the patient, she stated that she is not able to use her good arm AT ALL. She could not picker and sorter load and unload her coffee cup or push the call light. She has a ramp, BSC, Shower chair, transfer board, electric wheelchair, reg wheelchair at home. She stated that she has an aide service out of [facility] who comes daily & she was current with [facility]. She would like to go to our Inpatient rehab at [facility] as her first choice. Her second choice is [facility] and rehab. She does NOT want to go back to [place]. CM will continue to follow and assist as needed Clinical Nurse Specialist: Randi Malik DCPIA - Discharge Planning Initial Assessment Updated by [email or web address]: Randi Malik on 03/07/20 10:11 am * Is the patient Alert and Oriented? Yes * How many steps to enter\exit or inside your home? RAMP * PCP COURTNEY * [facility] * Preadmission Environment Home with Family * ADLs Partial Dependent * Partial ADLs (Assistance needed) Ambulation Bathing Dressing Medication Management Toileting * Equipment Elevated Tol[place] Seat Other Power Chair or Electric Scooter Shower Chair Tub Bench Wheelchair * Other Equipment TRANSFER BOARD * List name and contact numbers for known caregivers / representatives who currently or will assist patient after discharge: TOBY (SPOUSE) ROOPA (SON) [phone] * Verbal permission to speak to the caregivers and representatives has been obtained from the patient. Yes * Community resources currently utilized [facility] * Please name any agencies selected above. AIDE SERVICE OUT OF [facility] WITH [facility] * Additional services required to return to the preadmission environment? Yes * Can the patient safely return to the preadmission environment? No * Has this patient been hospitalized within the prior 30 days at any hospital? No Coverage Notice Reviewer: [id number] - Randi Malik Notice Issued Date-Time: 03/07/2020 8:45 Notice Type: Patient Choice Letter Notice Delivered To: Patient Relationship to Patient: Blackener Name: Delivery Method: HAND - Hand Delivered Rosemary Days: Prior Verbal Notification: Recipient Understood Notice: Yes Recipient Signature: Yes Med Rec Note Co-signed by Attending: Coverage Notice Comment: Last DP export: 03/08/20 12:31 p Patient Name: SABI MILLER Page [id number] at 0905 All edits/amendments must be made on the electronic document DICTATION DATE: 03/09/20903 STATISTICS MANAGER: CASTILLO 03/09/20903 RPT#: [id number] DC DATE: STATUS: ADM IN [facility] [address] [place] [address] END OF REPORT
--- NOTE | 2020-03-09 10:48 | NUR ---
SHE HAS BEEN SLEEPING MOST TO THE MORNING. SHE YELLS OUT WHEN SOMEONE LEAVES THE ROOM. SHE WANTS TO BE FED, SHE DOES NOT OFFER TO MOVE HER HANDS MUCH.
[2020-03-09 12:12] VITALS: BP 163/61
--- NOTE | 2020-03-09 13:29 | MORECARE ---
CASE MANAGEMENT DISCHARGE SUMMARY PATIENT: SABI MILLER UNIT: [id number] ADM DATE: 03/03/20 AGE: 64 : 57 SEX: F ROOM/BED: D.2201 AUTHOR: VINNIE REYES PHYSICIAN: REFERRING PHYSICIAN: PEEWEE HENRY MD DATE OF SERVICE: 03/09/20 Discharge Plan Patient Name: SABI MILLER Facility: [facility]:[place] : 1955 Planned Disposition: Inpatient Rehab Anticipated Discharge Date: Discharge Date: Expected LOS: Initial Reviewer: [email or web address] Initial Review Date: 03/03/2020 Generated: 03/09/20 2:28 pm Comments DCP- Discharge Planning Updated by [email or web address]: Randi Malik on 03/09/20 7:[address] UPDATED CLINICALS FAXED TO [facility] DCP- Discharge Planning Updated by [email or web address]: Randi Malik on 03/07/20 9:[address] Patient Name: SABI MILLER Admission Status: ER Accout number: [id number] Admission Date: 03-03-2020 : 1955 Admission Diagnosis: Attending: PEEWEE HENRY Current LOS: 4 Anticipated DC Date: Planned Disposition: Inpatient Rehab Primary Insurance: [facility] MEDICARE SOLUTIONS Discharge Planning Comments: CM met with patient to complete initial dc planning assessment. CM educated patient on the CM role and verbal consent given by patient to complete assessment. Patient lives at home with her spouse and adult son, where she stated that she was able to transfer herself with her transfer board and feed herself with her good arm. When I was speaking with the patient, she stated that she is not able to use her good arm AT ALL. She could not equipment maintenance superintendent her coffee cup or push the call light. She has a ramp, BSC, Shower chair, transfer board, electric wheelchair, reg wheelchair at home. She stated that she has an aide service out of [facility] who comes daily & she was current with [facility]. She would like to go to our Inpatient rehab at [facility] as her first choice. Her second choice is [facility] and rehab. She does NOT want to go back to [place]. CM will continue to follow and assist as needed Bullard Machine Operator: Randi Malik DCPIA - Discharge Planning Initial Assessment Updated by [email or web address]: Randi Malik on 03/07/20 10:11 am * Is the patient Alert and Oriented? Yes * How many steps to enter\exit or inside your home? RAMP * PCP COURTNEY * [facility] * Preadmission Environment Home with Family * ADLs Partial Dependent * Partial ADLs (Assistance needed) Ambulation Bathing Dressing Medication Management Toileting * Equipment Elevated [place] Seat Other Power Chair or Electric Scooter Shower Chair Tub Bench Wheelchair * Other Equipment TRANSFER BOARD * List name and contact numbers for known caregivers / representatives who currently or will assist patient after discharge: TOBY (SPOUSE) ROOPA (SON) [phone] * Verbal permission to speak to the caregivers and representatives has been obtained from the patient. Yes * Community resources currently utilized [facility] * Please name any agencies selected above. AIDE SERVICE OUT OF [facility] WITH [place] * Additional services required to return to the preadmission environment? Yes * Can the patient safely return to the preadmission environment? No * Has this patient been hospitalized within the prior 30 days at any hospital? No External [facility]iders [facility] Next Contact Date: Service Request Date: Service Type: Resolution: Reviewer: Comments: Coverage Notice Reviewer: [id number] - Randi Malik Notice Issued Date-Time: 03/07/2020 8:45 Notice Type: Patient Choice Letter Notice Delivered To: Patient Relationship to Patient: Helminthologist Name: Delivery Method: HAND - Hand Delivered Rosemary Days: Prior Verbal Notification: Recipient Understood Notice: Yes Recipient Signature: Yes Med Rec Note Co-signed by Attending: Coverage Notice Comment: Last DP export: 03/09/20 8:05 a Patient Name: SABI MILLER Page [id number] at 1329 All edits/amendments must be made on the electronic document DICTATION DATE: 03/09/20 1328 SENIOR SCRUM MASTER: CASTILLO 03/09/20 1328 RPT#: [id number] [place] DATE: STATUS: ADM IN [facility] [address] [place] [address] END OF REPORT
--- NOTE | 2020-03-09 13:44 | MORECARE ---
CASE MANAGEMENT DISCHARGE SUMMARY PATIENT: SABI MILLER UNIT: [id number] ADM DATE: 03/03/20 AGE: 64 : 57 SEX: F ROOM/BED: D.2201 AUTHOR: VINNIE REYES PHYSICIAN: REFERRING PHYSICIAN: PEEWEE HENRY MD DATE OF SERVICE: 03/09/20 Discharge Plan Patient Name: SABI MILLER Facility: [facility]:[place] : 1955 Planned Disposition: Inpatient Rehab Anticipated Discharge Date: Discharge Date: Expected LOS: Initial Reviewer: [email or web address] Initial Review Date: 03/03/2020 Generated: 03/09/20 2:43 pm Comments DCP- Discharge Planning Updated by [email or web address]: Randi Malik on 03/09/20 12:[address] PATIENT IS REFUSING TO GO TO [facility], I HAVE SPOKEN WITH HER AND HAVE RECEIVED PERMISSION FROM GLORIA FOR HER TO COME AND ASSESS HER TO SEE IF HE COULD TAKE CARE OF HER AT HOME BECAUSE HE AND HIS SON ARE THE PRIMARY CARE TAKERS DON IS HER SPOUSE CONTACT # [phone] DCP- Discharge Planning Updated by [email or web address]: Randi Malik on 03/09/20 7:[address] UPDATED CLINICALS FAXED TO [facility] DCP- Discharge Planning Updated by [email or web address]: Randi Malik on 03/07/20 9:[address] Patient Name: SABI MILLER Admission Status: ER Accout number: [id number] Admission Date: 03-03-2020 : 1955 Admission Diagnosis: Attending: PEEWEE HENRY Current LOS: 4 Anticipated DC Date: Planned Disposition: Inpatient Rehab Primary Insurance: [facility] MEDICARE SOLUTIONS Discharge Planning Comments: CM met with patient to complete initial dc planning assessment. CM educated patient on the CM role and verbal consent given by patient to complete assessment. Patient lives at home with her spouse and adult son, where she stated that she was able to transfer herself with her transfer board and feed herself with her good arm. When I was speaking with the patient, she stated that she is not able to use her good arm AT ALL. She could not bean picker her coffee cup or push the call light. She has a ramp, BSC, Shower chair, transfer board, electric wheelchair, reg wheelchair at home. She stated that she has an aide service out of [facility] who comes daily & she was current with [facility]. She would like to go to our Inpatient rehab at [facility] as her first choice. Her second choice is [facility] and rehab. She does NOT want to go back to [place]. CM will continue to follow and assist as needed Manufacturing Software Engineer: Randi Malik DCPIA - Discharge Planning Initial Assessment Updated by [email or web address]: Randi Malik on 03/07/20 10:11 am * Is the patient Alert and Oriented? Yes * How many steps to enter\exit or inside your home? RAMP * PCP COURTNEY * [facility] * Preadmission Environment Home with Family * ADLs Partial Dependent * Partial ADLs (Assistance needed) Ambulation Bathing Dressing Medication Management Toileting * Equipment Elevated Tol[place] Seat Other Power Chair or Electric Scooter Shower Chair Tub Bench Wheelchair * Other Equipment TRANSFER BOARD * List name and contact numbers for known caregivers / representatives who currently or will assist patient after discharge: TOBY (SPOUSE) ROOPA (SON) [phone] * Verbal permission to speak to the caregivers and representatives has been obtained from the patient. Yes * Community resources currently utilized [facility] * Please name any agencies selected above. AIDE SERVICE OUT OF [facility] [place] * Additional services required to return to the preadmission environment? Yes * Can the patient safely return to the preadmission environment? No * Has this patient been hospitalized within the prior 30 days at any hospital? No Coverage Notice Reviewer: [id number] - Randi Malik Notice Issued Date-Time: 03/07/2020 8:45 Notice Type: Patient Choice Letter Notice Delivered To: Patient Relationship to Patient: Mixer Operator Vacuum Pan Salt Name: Delivery Method: HAND - Hand Delivered Rosemary Days: Prior Verbal Notification: Recipient Understood Notice: Yes Recipient Signature: Yes Med Rec Note Co-signed by Attending: Coverage Notice Comment: Last DP export: 03/09/20 12:29 p Patient Name: SABI MILLER Page 11761 at 1344 All edits/amendments must be made on the electronic document DICTATION DATE: 03/09/20 134 MEMBER SERVICE REPRESENTATIVE: CASTILLO 03/09/20 1343 RPT#: [id number] DC DATE: STATUS: ADM IN [facility] [address] [place] [address] END OF REPORT
--- NOTE | 2020-03-09 15:14 | NUR ---
OT NOTE: IN AM, ASSISTED PT WITH WASHING FACE AND HANDS. PT CONT TO EXHIBIT SIGNIFICANT WEAKNESS IN B HANDS.. PERFORMED A/AROM TASKS WITH R HAND/UE; ATTEMPTED GROSS GRASP EXS WITH R HAND. IN PM, ASSISTED PT TO EOB; MAX ASSIST WITH SUPINE TO SIT; MIN/MOD ASSIST WITH SITTING BALANCE; WT BEARING THROUGH R UE; FREQ CUES TO KEEP HEAD UP; TRUNK CONTROL ACT. DISCUSSED DC PLANS WITH PT AND EQUAL OPPORTUNITY REPRESENTATIVE.. PT DOES NOT WANT TO GO TO OUTSIDE REHAB FACILITY SHE WAS UNHAPPY WITH THEM DURING HER LAST STAY. CONTINUE TO RECOMMEND IP REHAB SHE IS MAKING GAINS BUT REMAINS VERY WEAK. PT COOPERATIVE WITH THERAPY. LAWRENCE VALDERRAMA, OTR/L [phone]
[2020-03-09 17:27] VITALS: BP 157/69
--- NOTE | 2020-03-09 19:34 | NUR ---
PATIENT IS LAYING IN BED SCREAMING THAT SOME ON NEEDS TO HELP HER. THE PATIENT C/O NEEDING HER PSORIASIS MEDICINE AND THAT I SHOULD HAVE KNOW ABOUT IT BECAUSE IT WAS ON HER CHART. I INFORMED THE PATIENT THAT I HAD NOT BEEN ABLE TO LOOK INTO HER CHART YET BECAUSE I HAD JUST GOTTEN AT THE HOSPITAL FOR WORK BUT I WOULD LOOK INTO IT. I ASKED IF SHE WANTED SOME LOTION, AND SHE SCREAMED THAT IT WAS PSORIASIS AND THAT LOTION WOULDN'T WORK. NO S/S OF ACUTE DISTRESS. PATIENT IS CONFUSED, ORIENTATED TO SELF ONLY. CALL LIGHT WITHIN REACH. WILL CONTINUE TO MONITOR.
[2020-03-09 20:00] VITALS: BP 137/79
--- NOTE | 2020-03-09 20:00 | NUR ---
PATIENT IN BED YELLING AND CRYING. NO S/S OF ACUTE DISTRESS. PATIENT C/O HER "SKIN STINGING, BUT HER BUTT HURTS." PATIENT SITUATED ON LEFT SIDE AND PATIENT STATED THAT IT RELIEVED SOME OF THE PAIN. PATIENT IS CONFUSED, ORIENTATED TO PERSON AND PLACE ONLY. PATIENT HAS 1.5L OF O2 NASAL CANNULA. PATIENT HAS RIGHT FOREARM IV, SALINE LOC. IV IS PATENT WITHOUT REDNESS, SWELLING, OR TENDERNESS. PATIENT HAS TELEMETRY: 76 SINUS RYTHM WITH A BBB. PATIENT HAS A DRESSING ON COCCYX, C/D/I. PATIENT USES A PUREWICK. CALL LIGHT WITHIN REACH. WILL CONTINUE TO MONITOR.
--- NOTE | 2020-03-10 02:54 | NUR ---
I have reviewed this patient and I concur with the Shift Assessment completed by the Licensed Practical Nurse today this shift.
[2020-03-10 04:00] VITALS: BP 115/67
[2020-03-10 05:47] LABS: BASOPHILS 0.2 % (0-2); EOSINOPHILS 3.2 % (0-7); HEMATOCRIT 35.7 % (36.0-48.0); HEMOGLOBIN 11.5 g/dL (12-16); IMMATURE GRANULOCYTES 0.2 % (0-5); LYMPHOCYTES 34.2 % (15-50); MCH 31.2 pg (26.0-34.0); MCHC 32.2 g/dL (31.0-37.0); MCV 96.7 fL (80.0-100.0); MEAN PLATELET VOLUME 11.2 fL (7.4-10.4); MONOCYTES 7.1 % (2-11); NEUTROPHILS 55.1 % (40-80); PLATELET COUNT 203 10x3/uL (130-400); RBC 3.69 10x6/uL (4.00-5.40); WBC 6.3 10x3/uL (4.8-10.8)
[2020-03-10 06:11] LABS: ALBUMIN 2.5 g/dL (3.4-5.0); ALKALINE PHOSPHATASE 166 U/L (30-120); ALT (SGPT) 28 U/L (10-68); BILIRUBIN - TOTAL 0.23 mg/dL (0.2-1.3); CALC OSMOLALITY 284 mosm/kg (275-300); CALCIUM 8.8 mg/dL (8.5-10.1); CARBON DIOXIDE 29.2 mmol/L (21.0-32.0); CHLORIDE - SERUM 107 mmol/L (98-107); CREATININE - SERUM 0.8 mg/dL (0.6-1.3); GLUCOSE 96 mg/dL (74-106); POTASSIUM - SERUM 3.6 mmol/L (3.5-5.1); PROTEIN - SERUM 5.9 g/dL (6.4-8.2); SODIUM 142 mmol/L (136-145); UREA NITROGEN 18 mg/dL (7-18); eGFR NON AFRICAN AMERICAN 77 mL/min (90-120)
--- NOTE | 2020-03-10 07:26 | NUR ---
Calorie Count (24 hours) 03/09/20: Kcal Protein Breakfast 0 0 Lunch 245 17 Dinner 195 6 Total 440 kcal 23 gm protein Pt not meeting estimated energy needs with po intake AEB 24 hour calorie count. May need to consider PEG tube placement and supplemental tube feeding if po intake continues to be poor. RDN following.
[2020-03-10 08:00] VITALS: BP 103/69
--- NOTE | 2020-03-10 08:30 | NUR ---
PT RESTING IN BED WITH EYES CLOSED. EASILY AWAKEN WITH NAME CALLED. AM MEDICATIONS ADMINISTERED AT THIS TIME. ATTEMPTED TO ASSIST PT WITH BREAKFAST, BUT PT FELL BACK TO SLEEP. AWAKENS WITH NAME AND ENCOURAGEDMENT TO EAT, BUT DOES NOT RESPOND TO WANTING TO EAT AT THIS TIME. SALINE LOC TO RIGHT FOREARM, SITE WITHOUT REDNESS OR EDEMA. CL WITHIN REACH. ENCOURAGED TO CALL WITH NEEDS. CONTINUE POC
[2020-03-10 08:56] VITALS: BP 161/56
--- NOTE | 2020-03-10 10:25 | MORECARE ---
CASE MANAGEMENT DISCHARGE SUMMARY PATIENT: SABI MILLER UNIT: [id number] ADM DATE: 03/03/20 AGE: 64 : 57 SEX: F ROOM/BED: D.2201 AUTHOR: VINNIE REYES PHYSICIAN: REFERRING PHYSICIAN: PEEWEE HENRY MD DATE OF SERVICE: 03/10/20 Discharge Plan Patient Name: SABI MILLER Facility: [facility]:[place] : 1955 Planned Disposition: Inpatient Rehab Anticipated Discharge Date: Discharge Date: Expected LOS: Initial Reviewer: [id number] Initial Review Date: 03/03/2020 Generated: 03/10/20 11:24 am Comments DCP- Discharge Planning Updated by [email or web address]: Randi Malik on 03/10/20 9:[address] spoke with Tawny with [facility] and they can not accept her, [facility] Can not accept her because she is a 2 person assist. She is trying to see about [facility]. I spoke with the and he states that she will only go to a place where she could smoke. I do not believe that [facility] is a smoking facility I will check with Tawny. DCP- Discharge Planning Updated by [email or web address]: Randi Malik on 03/09/20 12:[address] PATIENT IS REFUSING TO GO TO [facility] INPATIENT REHAB, I HAVE SPOKEN WITH HER AND HAVE RECEIVED PERMISSION FROM GLORIA FOR HER TO COME AND ASSESS HER TO SEE IF HE COULD TAKE CARE OF HER AT HOME BECAUSE HE AND HIS SON ARE THE PRIMARY CARE TAKERS DON IS HER SPOUSE CONTACT # [phone] DCP- Discharge Planning Updated by [email or web address]: Randi Malik on 03/09/20 7:[address] UPDATED CLINICALS FAXED TO [facility] DCP- Discharge Planning Updated by [email or web address]: Randi Malik on 03/07/20 9:[address] Patient Name: SABI MILLER Admission Status: ER Accout number: [id number] Admission Date: 03-03-2020 : 1955 Admission Diagnosis: Attending: PEEWEE HENRY Current LOS: 4 Anticipated DC Date: Planned Disposition: Inpatient Rehab Primary Insurance: [facility] MEDICARE SOLUTIONS Discharge Planning Comments: CM met with patient to complete initial dc planning assessment. CM educated patient on the CM role and verbal consent given by patient to complete assessment. Patient lives at home with her spouse and adult son, where she stated that she was able to transfer herself with her transfer board and feed herself with her good arm. When I was speaking with the patient, she stated that she is not able to use her good arm AT ALL. She could not hop picker her coffee cup or push the call light. She has a ramp, BSC, Shower chair, transfer board, electric wheelchair, reg wheelchair at home. She stated that she has an aide service out of [facility] who comes daily & she was current with [facility]. She would like to go to our Inpatient rehab at [facility] as her first choice. Her second choice is [facility] and rehab. She does NOT want to go back to [place]. CM will continue to follow and assist as needed Occupational Therapy Teacher: Randi Malik DCPIA - Discharge Planning Initial Assessment Updated by [email or web address]: Randi Malik on 03/07/20 10:11 am * Is the patient Alert and Oriented? Yes * How many steps to enter\exit or inside your home? RAMP * PCP COURTNEY * [facility] * Preadmission Environment Home with Family * ADLs Partial Dependent * Partial ADLs (Assistance needed) Ambulation Bathing Dressing Medication Management Toileting * Equipment Elevated Tol[place] Seat Other Power Chair or Electric Scooter Shower Chair Tub Bench Wheelchair * Other Equipment TRANSFER BOARD * List name and contact numbers for known caregivers / representatives who currently or will assist patient after discharge: TOBY (SPOUSE) ROOPA (SON) [phone] * Verbal permission to speak to the caregivers and representatives has been obtained from the patient. Yes * Community resources currently utilized [facility] * Please name any agencies selected above. AIDE SERVICE OUT OF [facility] * Additional services required to return to the preadmission environment? Yes * Can the patient safely return to the preadmission environment? No * Has this patient been hospitalized within the prior 30 days at any hospital? No Coverage Notice Reviewer: [id number] - Randi Malik Notice Issued Date-Time: 03/07/2020 8:45 Notice Type: Patient Choice Letter Notice Delivered To: Patient Relationship to Patient: Chief Operations Officer Name: Delivery Method: HAND - Hand Delivered Rosemary Days: Prior Verbal Notification: Recipient Understood Notice: Yes Recipient Signature: Yes Med Rec Note Co-signed by Attending: Coverage Notice Comment: Last DP export: 03/09/20 12:44 p Patient Name: SABI MILLER Page 44796 at 1025 All edits/amendments must be made on the electronic document DICTATION DATE: 03/10/20 1024 DIRECTOR STARS: CASTILLO 03/10/20 1024 RPT#: [id number] DC DATE: STATUS: ADM IN [facility] [address] [place] [address] END OF REPORT
--- NOTE | 2020-03-10 10:30 | NUR ---
ASSISTED WITH COMPLETE BED BATH AND LINEN CHANGE. PT MORE AWAKE AND ALERT AT THIS TIME. RADHA WELL. CL WITHIN REACH. ENCOURAGED TO CALL WITH NEEDS.
--- NOTE | 2020-03-10 11:16 | MORECARE ---
CASE MANAGEMENT DISCHARGE SUMMARY PATIENT: SABI MILLER UNIT: [id number] ADM DATE: 03/03/20 AGE: 64 : 57 SEX: F ROOM/BED: D.2201 AUTHOR: VINNIE REYES PHYSICIAN: REFERRING PHYSICIAN: PEEWEE HENRY MD DATE OF SERVICE: 03/10/20 Discharge Plan Patient Name: SABI MILLER Facility: [facility]:[place] : 1955 Planned Disposition: Inpatient Rehab Anticipated Discharge Date: Discharge Date: Expected LOS: Initial Reviewer: [id number] Initial Review Date: 03/03/2020 Generated: 03/10/20 12:15 pm Comments DCP- Discharge Planning Updated by [email or web address]: Randi Malik on 03/10/20 10:[address] SPOKE WITH PATIENT ABOUT SMOKING FACILITY OPTIONS [facility] WAIT FOR [facility]EPTANCE DCP- Discharge Planning Updated by [email or web address]: Randi Malik on 03/10/20 9:[address] spoke with Tawny with [facility] and they can not accept her, [facility] Can not accept her because she is a 2 person assist. She is trying to see about [facility]. I spoke with the and he states that she will only go to a place where she could smoke. I do not believe that [facility] is a smoking facility I will check with Tawny. DCP- Discharge Planning Updated by [email or web address]: Randi Malik on 03/09/20 12:[address] PATIENT IS REFUSING TO GO TO [facility], I HAVE SPOKEN WITH HER AND HAVE RECEIVED PERMISSION FROM [facility] FOR HER TO COME AND ASSESS HER TO SEE IF HE COULD TAKE CARE OF HER AT HOME BECAUSE HE AND HIS SON ARE THE PRIMARY CARE TAKERS SE[facility] IS HER SPOUSE CONTACT # [phone] DCP- Discharge Planning Updated by [id number]: Randi Malik on 03/09/20 7:[address] UPDATED CLINICALS FAXED TO [facility] DCP- Discharge Planning Updated by [id number]: Randi Malik on 03/07/20 9:[address] Patient Name: SABI MILLER Admission Status: ER Accout number: [id number] Admission Date: 03-03-2020 : 1955 Admission Diagnosis: Attending: PEEWEE HENRY Current LOS: 4 Anticipated DC Date: Planned Disposition: Inpatient Rehab Primary Insurance: [facility] MEDICARE SOLUTIONS Discharge Planning Comments: CM met with patient to complete initial dc planning assessment. CM educated patient on the CM role and verbal consent given by patient to complete assessment. Patient lives at home with her spouse and adult son, where she stated that she was able to transfer herself with her transfer board and feed herself with her good arm. When I was speaking with the patient, she stated that she is not able to use her good arm AT ALL. She could not forklift picker her coffee cup or push the call light. She has a ramp, BSC, Shower chair, transfer board, electric wheelchair, reg wheelchair at home. She stated that she has an aide service out of [facility] who comes daily & she was current with [facility]. She would like to go to our Inpatient rehab at [facility] as her first choice. Her second choice is [facility] and rehab. She does NOT want to go back to [place]. CM will continue to follow and assist as needed Curriculum Development Manager: Randi Malik DCPIA - Discharge Planning Initial Assessment Updated by [id number]: Randi Malik on 03/07/20 10:11 am * Is the patient Alert and Oriented? Yes * How many steps to enter\exit or inside your home? RAMP * PCP [facility] * [facility] * Preadmission Environment Home with Family * ADLs Partial Dependent * Partial ADLs (Assistance needed) Ambulation Bathing Dressing Medication Management Toileting * Equipment Elevated [place] Seat Other Power Chair or Electric Scooter Shower Chair Tub Bench Wheelchair * Other Equipment TRANSFER BOARD * List name and contact numbers for known caregivers / representatives who currently or will assist patient after discharge: TOBY (SPOUSE) ROOPA (SON) [phone] * Verbal permission to speak to the caregivers and representatives has been obtained from the patient. Yes * Community resources currently utilized [facility] * Please name any agencies selected above. AIDE SERVICE OUT OF [facility] WITH ALDO * Additional services required to return to the preadmission environment? Yes * Can the patient safely return to the preadmission environment? No * Has this patient been hospitalized within the prior 30 days at any hospital? No External Providers External Provider: [facility] Next Contact Date: Service Request Date: Service Type: Resolution: Reviewer: Comments: Coverage Notice Reviewer: [id number] Rodger Malik Notice Issued Date-Time: 03/07/2020 8:45 Notice Type: Patient Choice Letter Notice Delivered To: Patient Relationship to Patient: Loop Tacker Name: Delivery Method: HAND - Hand Delivered Rosemary Days: Prior Verbal Notification: Recipient Understood Notice: Yes Recipient Signature: Yes Med Rec Note Co-signed by Attending: Coverage Notice Comment: Last DP export: 03/10/20 9:25 a Patient Name: SABI MILLER Page 64570 at 1116 All edits/amendments must be made on the electronic document DICTATION DATE: 03/10/201114 GREASE WORKER: CASTILLO 03/10/20 111 RPT#: [id number] DC DATE: STATUS: ADM IN [facility] [address] [place] [address] END OF REPORT
[2020-03-10 13:36] VITALS: BP 123/55
--- NOTE | 2020-03-10 14:30 | MORECARE ---
CASE MANAGEMENT DISCHARGE SUMMARY PATIENT: SABI MILLER UNIT: [id number] ADM DATE: 03/03/20 AGE: 64 : 57 SEX: F ROOM/BED: D.2201 AUTHOR: ERICDOC PHYSICIAN: REFERRING PHYSICIAN: PEEWEE HENRY MD DATE OF SERVICE: 03/10/20 Discharge Plan Patient Name: SABI MILLER Facility: [facility]:[place] : 1955 Planned Disposition: Inpatient Rehab Anticipated Discharge Date: Discharge Date: Expected LOS: Initial Reviewer: [email or web address] Initial Review Date: 03/03/2020 Generated: 03/10/20 3:30 pm Comments DCP- Discharge Planning Updated by [email or web address]: Randi Malik on 03/10/20 1:[address] PATIENT REALLY JUST WANTS TO SMOKE, [facility] WILL HAVE A BED OPEN ON FRIDAY AFTERNOON, BUT WILL HAVE TO BE QUARENTINED FOR 14 DAYS THEN SHE CAN GO SMOKE. THEY WILL ACCEPT HER IF SHE AGREE'S TO THIS SHE STATED THAT SHE WILL JUST GO HOME AND "DON CAN GET OFF HIS ASS AND HELP HER" DCP- Discharge Planning Updated by [id number]: Randi Malik on 03/10/20 10:[address] SPOKE WITH PATIENT ABOUT SMOKING FACILITY OPTIONS SHE [facility] I HAVE [facility]ED [facility] WA[facility] FOR [facility]EPTANCE DCP- Discharge Planning Updated by [id number]: Randi Malik on 03/10/20 9:[address] spoke with Tawny with [facility] and they can not accept her, [facility] Can not accept her because she is a 2 person assist. She is trying to see about [facility]. I spoke with the and he states that she will only go to a place where she could smoke. I do not believe that [facility] is a smoking facility I will check with Tawny. DCP- Discharge Planning Updated by [id number]: Randi Malik on 03/09/20 12:[address] PATIENT IS REFUSING TO GO TO [facility], I HAVE SPOKEN WITH HER AND HAVE RECEIVED PERMISSION FROM [facility] FOR HER TO COME AND ASSESS HER TO SEE IF HE COULD TAKE CARE OF HER AT HOME BECAUSE HE AND HIS SON ARE THE PRIMARY CARE TAKERS DON IS HER SPOUSE CONTACT # [phone] DCP- Discharge Planning Updated by [id number]: Randi Malik on 03/09/20 7:[address] UPDATED CLINICALS FAXED TO [facility] DCP- Discharge Planning Updated by [email or web address]: Randi Malik on 03/07/20 9:[address] Patient Name: SABI MILLER Admission Status: ER Accout number: [id number] Admission Date: 03-03-2020 : 1955 Admission Diagnosis: Attending: PEEWEE HENRY Current LOS: 4 Anticipated DC Date: Planned Disposition: Inpatient Rehab Primary Insurance: [facility] MEDICARE SOLUTIONS Discharge Planning Comments: CM met with patient to complete initial dc planning assessment. CM educated patient on the CM role and verbal consent given by patient to complete assessment. Patient lives at home with her spouse and adult son, where she stated that she was able to transfer herself with her transfer board and feed herself with her good arm. When I was speaking with the patient, she stated that she is not able to use her good arm AT ALL. She could not picking machine operator helper her coffee cup or push the call light. She has a ramp, BSC, Shower chair, transfer board, electric wheelchair, reg wheelchair at home. She stated that she has an aide service out of [facility] who comes daily & she was current with [facility]. She would like to go to our Inpatient rehab at [facility] as her first choice. Her second choice is [facility] and rehab. She does NOT want to go back to [place]. CM will continue to follow and assist as needed Stove Installer: Randi Malik DCPIA - Discharge Planning Initial Assessment Updated by [id number]: Randi Malik on 03/07/20 10:11 am * Is the patient Alert and Oriented? Yes * How many steps to enter\\exit or inside your home? RAMP * PCP [facility] * [facility] * Preadmission Environment Home with Family * ADLs Partial Dependent * Partial ADLs (Assistance needed) Ambulation Bathing Dressing Medication Management Toileting * Equipment Elevated Tol[place] Seat Other Power Chair or Electric Scooter Shower Chair Tub Bench Wheelchair * Other Equipment TRANSFER BOARD * List name and contact numbers for known caregivers / representatives who currently or will assist patient after discharge: TOBY (SPOUSE) ROOPA (SON) [phone] * Verbal permission to speak to the caregivers and representatives has been obtained from the patient. Yes * Community resources currently utilized [facility] * Please name any agencies selected above. AIDE SERVICE OUT OF [facility] WITH ALDO * Additional services required to return to the preadmission environment? Yes * Can the patient safely return to the preadmission environment? No * Has this patient been hospitalized within the prior 30 days at any hospital? No Coverage Notice Reviewer: [id number] Rodger Malik Notice Issued Date-Time: 03/07/2020 8:45 Notice Type: Patient Choice Letter Notice Delivered To: Patient Relationship to Patient: Railway Switchman Name: Delivery Method: HAND - Hand Delivered Rosemary Days: Prior Verbal Notification: Recipient Understood Notice: Yes Recipient Signature: Yes Med Rec Note Co-signed by Attending: Coverage Notice Comment: Last DP export: 03/10/20 10:16 a Patient Name: SABI MILLER Page 29911 at 1430 All edits/amendments must be made on the electronic document DICTATION DATE: 03/10/201429 CRIBBER: CASTILLO 03/10/20 143 RPT#: [id number] DC DATE: STATUS: ADM IN [facility] [address] [place] [address] END OF REPORT
--- NOTE | 2020-03-10 15:18 | NUR ---
OT NOTE: PT SLIGHTLY AGITATED AND FRUSTRATED ABOUT DC PLANS. PT HAS BEEN DIFFICULT TO PLEASE REGARDING REHAB OPTIONS. AND NOW, PTS MAIN CONCERN IF SHE WILL BE ABLE TO SMOKE..ATTEMPTED GROSS MOTOR TASKS WITH R HAND; BED MOB; WT BEARING.. PT LESS ENTHUSIASTIC TODAY. WILL CONT TO TREAT FOR NEURO AND ROM EXS LAWRENCE VALDERRAMA, OTR/L [phone]
--- NOTE | 2020-03-10 16:34 | NUR ---
OT NOTE: PT COMPLETED SUPINE TO SIT AT EOB WITH MAX A. PT COMPLETED STATIC EOB SITTING BALANCE WITH MOD A SECONDARY TO DECREASED TRUNK CONTROL AND LATERAL LEAN TO R SIDE. PT COMPLETED WT BEARING THROUGH BUE WHILE SITTING AT EOB. PT IS EASILY FUSTRATED. [phone] THANK YOU,FAROOQ ESTES
[2020-03-10 18:31] VITALS: BP 181/67
[2020-03-10 20:00] VITALS: BP 151/52
--- NOTE | 2020-03-10 20:30 | NUR ---
RESTING QUIETLY WITH NO DISTESS NOTED. RESP UNALBORED.O2 @ 1.5 L PER NC ON. TURNED AND POSITIONED FOR COMFORT. CL IN REACH
--- NOTE | 2020-03-11 03:38 | NUR ---
I have reviewed this patient and I concur with the Shift Assessment completed by the Licensed Practical Nurse today this shift.
[2020-03-11 04:00] VITALS: BP 163/57
[2020-03-11 06:39] LABS: BASOPHILS 0.2 % (0-2); EOSINOPHILS 3.2 % (0-7); HEMATOCRIT 36.9 % (36.0-48.0); HEMOGLOBIN 11.9 g/dL (12-16); IMMATURE GRANULOCYTES 0.2 % (0-5); LYMPHOCYTES 28.9 % (15-50); MCHC 32.2 g/dL (31.0-37.0); MCV 96.1 fL (80.0-100.0); MEAN PLATELET VOLUME 11.7 fL (7.4-10.4); MONOCYTES 6.5 % (2-11); PLATELET COUNT 207 10x3/uL (130-400); RBC 3.84 10x6/uL (4.00-5.40); RDW 12.9 % (11.5-14.5); WBC 6.5 10x3/uL (4.8-10.8)
[2020-03-11 06:57] LABS: ALBUMIN 2.6 g/dL (3.4-5.0); ANION GAP 6.4 mmol/L (8-16); BILIRUBIN - TOTAL 0.36 mg/dL (0.2-1.3); CALCIUM 8.8 mg/dL (8.5-10.1); CARBON DIOXIDE 30.3 mmol/L (21.0-32.0); CREATININE - SERUM 0.9 mg/dL (0.6-1.3); POTASSIUM - SERUM 3.7 mmol/L (3.5-5.1); PROTEIN - SERUM 6.1 g/dL (6.4-8.2)
[2020-03-11 08:20] VITALS: BP 158/57
[2020-03-11 12:11] VITALS: BP 133/64
[2020-03-11 16:00] VITALS: BP 156/62
--- NOTE | 2020-03-11 19:40 | NUR ---
I have reviewed this patient and I concur with the Shift Assessment completed by the Licensed Practical Nurse today this shift.
[2020-03-11 20:00] VITALS: BP 136/55
[2020-03-12] VITALS (7 sets, daily range): BP systolic 128–156; BP diastolic 51–62
[2020-03-12 05:36] LABS: BASOPHILS 0 % (0-2); EOSINOPHILS 2.3 % (0-7); HEMATOCRIT 38.2 % (36.0-48.0); HEMOGLOBIN 12.4 g/dL (12-16); IMMATURE GRANULOCYTES 0.3 % (0-5); LYMPHOCYTES 23.2 % (15-50); MCH 31.4 pg (26.0-34.0); MCHC 32.5 g/dL (31.0-37.0); MCV 96.7 fL (80.0-100.0); MEAN PLATELET VOLUME 11.7 fL (7.4-10.4); MONOCYTES 7.4 % (2-11); NEUTROPHILS 66.8 % (40-80); PLATELET COUNT 217 10x3/uL (130-400); RBC 3.95 10x6/uL (4.00-5.40); WBC 7.8 10x3/uL (4.8-10.8)
[2020-03-12 05:56] LABS: ALBUMIN 2.6 g/dL (3.4-5.0); ANION GAP 10.9 mmol/L (8-16); BILIRUBIN - TOTAL 0.2 mg/dL (0.2-1.3); CALCIUM 8.9 mg/dL (8.5-10.1); CARBON DIOXIDE 29.9 mmol/L (21.0-32.0); CREATININE - SERUM 1.1 mg/dL (0.6-1.3); POTASSIUM - SERUM 3.8 mmol/L (3.5-5.1); PROTEIN - SERUM 6.4 g/dL (6.4-8.2)
--- NOTE | 2020-03-12 09:51 | NUR ---
PT SLIGHTLY CONFUSED TO RECENT EVENTS. VERY WEAK. BREATH SOUNDS CLEAR BILAT, 1L O2 PER NC. TELEMETRY IN PLACE. IV TO RIGHT FOREARM PATENT, DRESSING CDI. PT REPORTING PAIN OF 6/10, MEDICATED PER ORDERS, WILL MONITOR. BUTTOCKS RED. PT TURNED TO LEFT SIDE. BED LOW, CALL LIGHT IN REACH. NO OTHER NEEDS AT THIS TIME.
--- NOTE | 2020-03-12 11:05 | NUR ---
O2 SAT AT 73%, TURNED O2 UP TO 6L. BROUGHT O2 UP TO 86%. BLOOD GASES COMPLETE. PT CONDITION IMPROVED OVER THE COURSE OF 10 MINUTES. WILL CONTINUE TO MONITOR.
--- NOTE | 2020-03-12 19:45 | NUR ---
LYING IN BED. ALERT AND ORIENTED TO SELF AND PLACED. FORGETFUL. CONFUSED AT TIMES. STATES SHE IS GOING TO REHAB. BUTTOCKS ARE RED. TELEMETRY SHOWS SR WITH RATE OF 66. SCDS IN USE BILAT. RESP EVEN AND NONLABORED. O2 @ 1L/NC. BRUISES NOTED TO BUE. SALINE LOCK NOTED TO RT FOREARM. REPORTS DIFF SWALLOWING MEDS AT TIMES. REPORTS PAIN IN HIP. MEDICATED WITH NORCO. LÓPEZ ALARM ON. CL IN REACH. NO DISTRESS.
[2020-03-13 00:39] VITALS: BP 147/56
[2020-03-13 04:48] LABS: BASOPHILS 0.2 % (0-2); EOSINOPHILS 3.2 % (0-7); HEMATOCRIT 38.1 % (36.0-48.0); HEMOGLOBIN 12.3 g/dL (12-16); IMMATURE GRANULOCYTES 0.3 % (0-5); LYMPHOCYTES 33.3 % (15-50); MCH 31.5 pg (26.0-34.0); MCHC 32.3 g/dL (31.0-37.0); MCV 97.4 fL (80.0-100.0); MEAN PLATELET VOLUME 11.7 fL (7.4-10.4); MONOCYTES 6.4 % (2-11); NEUTROPHILS 56.6 % (40-80); PLATELET COUNT 222 10x3/uL (130-400); RBC 3.91 10x6/uL (4.00-5.40); RDW 13.1 % (11.5-14.5); WBC 6.5 10x3/uL (4.8-10.8)
[2020-03-13 05:03] LABS: ALBUMIN 2.6 g/dL (3.4-5.0); ANION GAP 10.4 mmol/L (8-16); BILIRUBIN - TOTAL 0.23 mg/dL (0.2-1.3); CALCIUM 8.8 mg/dL (8.5-10.1); CARBON DIOXIDE 30.8 mmol/L (21.0-32.0); POTASSIUM - SERUM 4.2 mmol/L (3.5-5.1); PROTEIN - SERUM 6.2 g/dL (6.4-8.2)
[2020-03-13 06:48] VITALS: BP 171/71
--- NOTE | 2020-03-13 07:35 | MORECARE ---
CASE MANAGEMENT DISCHARGE SUMMARY PATIENT: SABI MILLER UNIT: [id number] ADM DATE: 03/03/20 AGE: 64 : 57 SEX: F ROOM/BED: D.2201 AUTHOR: ERICDOC PHYSICIAN: REFERRING PHYSICIAN: PEEWEE HENRY MD DATE OF SERVICE: 03/13/20 Discharge Plan Patient Name: SABI MILLER Facility: [facility]:[place] : 1955 Planned Disposition: Inpatient Rehab Anticipated Discharge Date: Discharge Date: Expected LOS: Initial Reviewer: [email or web address] Initial Review Date: 03/03/2020 Generated: 03/13/20 8:35 am Comments DCP- Discharge Planning Updated by [email or web address]: Randi Malik on 03/10/20 1:[address] PATIENT REALLY JUST WANTS TO SMOKE, [facility] WILL HAVE A BED OPEN ON FRIDAY AFTERNOON, BUT WILL HAVE TO BE QUARENTINED FOR 14 DAYS THEN SHE CAN GO SMOKE. THEY WILL ACCEPT HER IF SHE AGREE'S TO THIS SHE STATED THAT SHE WILL JUST GO HOME AND "DON CAN GET OFF HIS ASS AND HELP HER" DCP- Discharge Planning Updated by [id number]: Randi Malik on 03/10/20 10:[address] SPOKE WITH PATIENT ABOUT SMOKING FACILITY OPTIONS [facility] WAIT FOR [facility]EPTANCE DCP- Discharge Planning Updated by [id number]: Randi Malik on 03/10/20 9:[address] spoke with Tawny with [facility] and they can not accept her, [facility] Can not accept her because she is a 2 person assist. She is trying to see about [facility]. I spoke with the and he states that she will only go to a place where she could smoke. I do not believe that [facility] is a smoking facility I will check with Tawny. DCP- Discharge Planning Updated by [id number]: Randi Malik on 03/09/20 12:[address] PATIENT IS REFUSING TO GO TO [facility], I HAVE SPOKEN WITH HER AND HAVE RECEIVED PERMISSION FROM [facility] FOR HER TO COME AND ASSESS HER TO SEE IF HE COULD TAKE CARE OF HER AT HOME BECAUSE HE AND HIS SON ARE THE PRIMARY CARE TAKERS DON IS HER SPOUSE CONTACT # [phone] DCP- Discharge Planning Updated by [email or web address]: Randi Malik on 03/09/20 7:[address] UPDATED CLINICALS FAXED TO [facility] DCP- Discharge Planning Updated by [id number]: Randi Malik on 03/07/20 9:[address] Patient Name: SABI MILLER Admission Status: ER Accout number: [id number] Admission Date: 03-03-2020 : 1955 Admission Diagnosis: Attending: PEEWEE HENRY Current LOS: 4 Anticipated DC Date: Planned Disposition: Inpatient Rehab Primary Insurance: [facility] MEDICARE SOLUTIONS Discharge Planning Comments: CM met with patient to complete initial dc planning assessment. CM educated patient on the CM role and verbal consent given by patient to complete assessment. Patient lives at home with her spouse and adult son, where she stated that she was able to transfer herself with her transfer board and feed herself with her good arm. When I was speaking with the patient, she stated that she is not able to use her good arm AT ALL. 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 She has a ramp, BSC, Shower chair, transfer board, electric wheelchair, reg wheelchair at home. She stated that she has an aide service out of [facility] who comes daily & she was current with [facility]. She would like to go to our Inpatient rehab at [facility] as her first choice. Her second choice is [facility] and rehab. She does NOT want to go back to [place]. CM will continue to follow and assist as needed Black Top Machine Operator: Randi Malik DCPIA - Discharge Planning Initial Assessment Updated by [email or web address]: Randi Malik on 03/07/20 10:11 am * Is the patient Alert and Oriented? Yes * How many steps to enter\\exit or inside your home? RAMP * PCP [facility] * [facility] * Preadmission Environment Home with Family * ADLs Partial Dependent * Partial ADLs (Assistance needed) Ambulation Bathing Dressing Medication Management Toileting * Equipment Elevated Toliet Seat Other Power Chair or Electric Scooter Shower Chair Tub Bench Wheelchair * Other Equipment TRANSFER BOARD * List name and contact numbers for known caregivers / representatives who currently or will assist patient after discharge: TOBY (SPOUSE) ROOPA (SON) [phone] * Verbal permission to speak to the caregivers and representatives has been obtained from the patient. Yes * Community resources currently utilized [facility] * Please name any agencies selected above. AIDE SERVICE OUT OF [facility] WITH ALDO * Additional services required to return to the preadmission environment? Yes * Can the patient safely return to the preadmission environment? No * Has this patient been hospitalized within the prior 30 days at any hospital? No External Providers External Provider: [facility] Next Contact Date: Service Request Date: Service Type: Resolution: Reviewer: Comments: Coverage Notice Reviewer: [id number] Rodger Malik Notice Issued Date-Time: 03/07/2020 8:45 Notice Type: Patient Choice Letter Notice Delivered To: Patient Relationship to Patient: Senior Asic Design Engineer Name: Delivery Method: HAND - Hand Delivered Rosemary Days: Prior Verbal Notification: Recipient Understood Notice: Yes Recipient Signature: Yes Med Rec Note Co-signed by Attending: Coverage Notice Comment: Last DP export: 03/10/20 1:30 p Patient Name: SABI MILLER Page [id number] at 0735 All edits/amendments must be made on the electronic document DICTATION DATE: 03/13/[address] DEPARTMENT: CASTILLO 03/13/2035 RPT#: [id number] DC DATE: STATUS: ADM IN [facility] [address] [place] [address] END OF REPORT
--- NOTE | 2020-03-13 08:30 | NUR ---
PATIENT REPOSITIONED TO RIGHT SIDE. STATES HER BUTTOCKS HURTS. CL IN REACH. ASSISTED WITH BREAKFAST AND MEDICATIONS GIVEN PER EMAR. CRUSHED AND WITH CHOCOLATE PUDDING. POSSE ALARM ON. WCTM
[2020-03-13 08:52] VITALS: BP 153/53
[2020-03-13] MEDS ORDERED: COREG12.5 MG PO (08:53)
[2020-03-13] MEDS ORDERED: ELIQUIS2.5 MG PO (08:54)
--- NOTE | 2020-03-13 12:18 | NUR ---
PATIENT AWAKENED TO SEE IF SHE WANTED TO EAT LUNCH. SHE DECLINED. STATED SHE WANTED TO SLEEP. WANTED HER LEGS UNTANGLED AND I DID. PATIENT RETURNED TO SLEEP. CL IN REACH. WCTM
[2020-03-13 12:29] VITALS: BP 151/53
--- NOTE | 2020-03-13 16:38 | MORECARE ---
CASE MANAGEMENT DISCHARGE SUMMARY PATIENT: SABI MILLER UNIT: [id number] ADM DATE: 03/03/20 AGE: 64 : 57 SEX: F ROOM/BED: D.2201 AUTHOR: VINNIE REYES PHYSICIAN: REFERRING PHYSICIAN: PEEWEE HENRY MD DATE OF SERVICE: 03/13/20 Discharge Plan Patient Name: SABI MILLER Facility: [facility]:[place] : 1955 Planned Disposition: Inpatient Rehab Anticipated Discharge Date: Discharge Date: Expected LOS: Initial Reviewer: [id number] Initial Review Date: 03/03/2020 Generated: 03/13/20 5:38 pm Comments DCP- Discharge Planning Updated by [id number]: Alaina Gonzalez on 03/13/20 3:[address] Patient Name: SABI MILLER Admission Status: ER Accout number: [id number] Admission Date: 03-03-2020 : 1955 Admission Diagnosis:WEAKNESS Attending: PEEWEE HENRY Current LOS: 10 Anticipated DC Date: Planned Disposition: Inpatient Rehab Primary Insurance: [facility] MEDICARE SOLUTIONS Discharge Planning Comments: SPOKE WITH TAWNY AT [facility], SHE IS STILL WAITING ON [facility] FOR SNF. CM TO FOLLOW AND ASSIST NEEDED. Production Support Developer: Alaina Gonzalez DCP- Discharge Planning Updated by [id number]: Randi Malik on 03/10/20 1:[address] PATIENT REALLY JUST WANTS TO SMOKE, [facility] WILL HAVE A BED OPEN ON FRIDAY AFTERNOON, BUT WILL HAVE TO BE QUARENTINED FOR 14 DAYS THEN SHE CAN GO SMOKE. THEY WILL ACCEPT HER IF SHE AGREE'S TO THIS SHE STATED THAT SHE WILL JUST GO HOME AND "DON CAN GET OFF HIS ASS AND HELP HER" DCP- Discharge Planning Updated by [email or web address]: Randi Malik on 03/10/20 10:[address] SPOKE WITH PATIENT ABOUT SMOKING FACILITY OPTIONS SHE [facility] I [facility]ED [facility] FOR [facility]EPTANCE DCP- Discharge Planning Updated by [id number]: Randi Malik on 03/10/20 9:[address] spoke with Tawny with [facility] and they can not accept her, [facility] Can not accept her because she is a 2 person assist. She is trying to see about [facility]. I spoke with the and he states that she will only go to a place where she could smoke. I do not believe that [place] is a smoking facility I will check with Tawny. DCP- Discharge Planning Updated by [id number]: Randi Malik on 03/09/20 12:[address] PATIENT IS REFUSING TO GO TO [facility] INPATIENT REHAB, I HAVE SPOKEN WITH HER AND HAVE RECEIVED PERMISSION FROM [facility] FOR HER TO COME AND ASSESS HER TO SEE IF HE COULD TAKE CARE OF HER AT HOME BECAUSE HE AND HIS SON ARE THE PRIMARY CARE TAKERS SEBASTIEN IS HER SPOUSE CONTACT # [phone] DCP- Discharge Planning Updated by [email or web address]: Randi King on 03/09/20 7:[address] UPDATED CLINICALS FAXED TO [facility] DCP- Discharge Planning Updated by [id number]: Randieloy Malik on 03/07/20 9:[address] Patient Name: SABI MILLER Admission Status: Accout number: [id number] Admission Date: 03-03-2020 : 1955 Admission Diagnosis: Attending: PEEWEE HENRY Current LOS: 4 Anticipated DC Date: Planned Disposition: Inpatient Rehab Primary Insurance: [facility] MEDICARE SOLUTIONS Discharge Planning Comments: CM met with patient to complete initial dc planning assessment. CM educated patient on the CM role and verbal consent given by patient to complete assessment. Patient lives at home with her spouse and adult son, where she stated that she was able to transfer herself with her transfer board and feed herself with her good arm. When I was speaking with the patient, she stated that she is not able to use her good arm AT ALL. She could not product picker her coffee cup or push the call light. She has a ramp, BSC, Shower chair, transfer board, electric wheelchair, reg wheelchair at home. She stated that she has an aide service out of [facility] who comes daily & she was current with [facility]. She would like to go to our Inpatient rehab at [facility] as her first choice. Her second choice is [facility] and rehab. She does NOT want to go back to [facility]. CM will continue to follow and assist as needed Production Support Developer: Randi Malik DCPIA - Discharge Planning Initial Assessment Updated by [id number]: Randi Malik on 03/07/20 10:11 am * Is the patient Alert and Oriented? Yes * How many steps to enter\\exit or inside your home? RAMP * PCP [facility] * [facility] * Preadmission Environment Home with Family * ADLs Partial Dependent * Partial ADLs (Assistance needed) Ambulation Bathing Dressing Medication Management Toileting * Equipment Elevated Toliet Seat Other Power Chair or Electric Scooter Shower Chair Tub Bench Wheelchair * Other Equipment TRANSFER BOARD * List name and contact numbers for known caregivers / representatives who currently or will assist patient after discharge: TOBY (SPOUSE) ROOPA (SON) [phone] * Verbal permission to speak to the caregivers and representatives has been obtained from the patient. Yes * Community resources currently utilized [facility] * Please name any agencies selected above. AIDE SERVICE OUT OF [facility] WITH SIENNA * Additional services required to return to the preadmission environment? Yes * Can the patient safely return to the preadmission environment? No * Has this patient been hospitalized within the prior 30 days at any hospital? No Coverage Notice Reviewer: [id number] - Randi Malik Notice Issued Date-Time: 03/07/2020 8:45 Notice Type: Patient Choice Letter Notice Delivered To: Patient Relationship to Patient: Psychiatrist Name: Delivery Method: HAND - Hand Delivered Rosemary Days: Prior Verbal Notification: Recipient Understood Notice: Yes Recipient Signature: Yes Med Rec Note Co-signed by Attending: Coverage Notice Comment: Reviewer: [id number] - Alaina Gonzalez Notice Issued Date-Time: 03/13/2020 10:10 Notice Type: IM Discharge Notice Notice Delivered To: Patient Relationship to Patient: Psychiatrist Name: Delivery Method: HAND - Hand Delivered Rosemary Days: Prior Verbal Notification: Recipient Understood Notice: Yes Recipient Signature: Med Rec Note Co-signed by Attending: Coverage Notice Comment: VERBALIZED UNDERSTANDING. UNABLE TO SIGN BECAUSE OF USE OF HANDS Last DP export: 03/13/20 6:35 a Patient Name: SABI MILLER Page 83827 at 1638 All edits/amendments must be made on the electronic document DICTATION DATE: 03/13/201637 MEDICAID BILLING CLERK: CASTILLO 03/13/201637 RPT#: [id number] DC DATE: STATUS: ADM IN [facility] [address] [place] [address] END OF REPORT
[2020-03-13 17:14] VITALS: BP 138/51
[2020-03-13 21:26] VITALS: BP 151/66
[2020-03-14 01:30] VITALS: BP 143/95
[2020-03-14 04:26] LABS: BASOPHILS 0.2 % (0-2); EOSINOPHILS 2.7 % (0-7); HEMATOCRIT 37.7 % (36.0-48.0); HEMOGLOBIN 12.2 g/dL (12-16); IMMATURE GRANULOCYTES 0.2 % (0-5); LYMPHOCYTES 34.7 % (15-50); MCH 31.7 pg (26.0-34.0); MCHC 32.4 g/dL (31.0-37.0); MCV 97.9 fL (80.0-100.0); MEAN PLATELET VOLUME 11.6 fL (7.4-10.4); MONOCYTES 6.2 % (2-11); PLATELET COUNT 217 10x3/uL (130-400); RBC 3.85 10x6/uL (4.00-5.40); RDW 12.9 % (11.5-14.5)
[2020-03-14 04:53] LABS: ALBUMIN 2.6 g/dL (3.4-5.0); BILIRUBIN - TOTAL 0.3 mg/dL (0.2-1.3); CALCIUM 8.8 mg/dL (8.5-10.1); CREATININE - SERUM 0.9 mg/dL (0.6-1.3); PROTEIN - SERUM 6.2 g/dL (6.4-8.2)
[2020-03-14 06:27] VITALS: BP 145/53
[2020-03-14 08:00] VITALS: BP 166/62
--- NOTE | 2020-03-14 11:22 | MORECARE ---
CASE MANAGEMENT DISCHARGE SUMMARY PATIENT: SABI MILLER UNIT: [id number] ADM DATE: 03/03/20 AGE: 64 : 57 SEX: F ROOM/BED: D.2201 AUTHOR: VINNIE REYES PHYSICIAN: REFERRING PHYSICIAN: PEEWEE HENRY MD DATE OF SERVICE: 03/14/20 Discharge Plan Patient Name: SABI MILLER Facility: [facility]:[place] : 1955 Planned Disposition: Inpatient Rehab Anticipated Discharge Date: Discharge Date: Expected LOS: Initial Reviewer: [id number] Initial Review Date: 03/03/2020 Generated: 03/14/20 12:21 pm Comments DCP- Discharge Planning Updated by [id number]: Alaina Gonzalez on 03/13/20 3:[address] Patient Name: SABI MILLER Admission Status: ER Accout number: [id number] Admission Date: 03-03-2020 : 1955 Admission Diagnosis:WEAKNESS Attending: PEEWEE HENRY Current LOS: 10 Anticipated DC Date: Planned Disposition: Inpatient Rehab Primary Insurance: [facility] MEDICARE SOLUTIONS Discharge Planning Comments: SPOKE WITH TAWNY AT [facility], SHE IS STILL WAITING ON [facility] FOR SNF. CM TO FOLLOW AND ASSIST NEEDED. Senior Php Software Developer: Alaina Gonzalez DCP- Discharge Planning Updated by [email or web address]: Randi Malik on 03/10/20 1:[address] PATIENT REALLY JUST WANTS TO SMOKE, [facility] WILL HAVE A BED OPEN ON FRIDAY AFTERNOON, BUT WILL HAVE TO BE QUARENTINED FOR 14 DAYS THEN SHE CAN GO SMOKE. THEY WILL ACCEPT HER IF SHE AGREE'S TO THIS SHE STATED THAT SHE WILL JUST GO HOME AND "DON CAN GET OFF HIS ASS AND HELP HER" DCP- Discharge Planning Updated by [email or web address]: Randi Malik on 03/10/20 10:[address] SPOKE WITH PATIENT ABOUT SMOKING FACILITY OPTIONS SHE [facility] I HAVE [facility]ED [facility] FOR [facility]PTANCE DCP- Discharge Planning Updated by [email or web address]: Randi Malik on 03/10/20 9:[address] spoke with Tawny with [facility] and they can not accept her, [facility] Can not accept her because she is a 2 person assist. She is trying to see about [facility]. I spoke with the and he states that she will only go to a place where she could smoke. I do not believe that [place] is a smoking facility I will check with Tawny. DCP- Discharge Planning Updated by [id number]: Randi Malik on 03/09/20 12:[address] PATIENT IS REFUSING TO GO TO [facility] INPATIENT REHAB, I HAVE SPOKEN WITH HER AND HAVE RECEIVED PERMISSION FROM [facility] FOR HER TO COME AND ASSESS HER TO SEE IF HE COULD TAKE CARE OF HER AT HOME BECAUSE HE AND HIS SON ARE THE PRIMARY CARE TAKERS SEBASTIEN IS HER SPOUSE CONTACT # [phone] DCP- Discharge Planning Updated by [id number]: Randi King on 03/09/20 7:[address] UPDATED CLINICALS FAXED TO [facility] DCP- Discharge Planning Updated by [id number]: Randieloy Malik on 03/07/20 9:[address] Patient Name: SABI MILLER Admission Status: Accout number: [id number] Admission Date: 03-03-2020 : 1955 Admission Diagnosis: Attending: PEEWEE HENRY Current LOS: 4 Anticipated DC Date: Planned Disposition: Inpatient Rehab Primary Insurance: [facility] MEDICARE SOLUTIONS Discharge Planning Comments: CM met with patient to complete initial dc planning assessment. CM educated patient on the CM role and verbal consent given by patient to complete assessment. Patient lives at home with her spouse and adult son, where she stated that she was able to transfer herself with her transfer board and feed herself with her good arm. When I was speaking with the patient, she stated that she is not able to use her good arm AT ALL. She could not pickle water pump operator her coffee cup or push the call light. She has a ramp, BSC, Shower chair, transfer board, electric wheelchair, reg wheelchair at home. She stated that she has an aide service out of [facility] who comes daily & she was current with [facility]. She would like to go to our Inpatient rehab at [facility] as her first choice. Her second choice is [facility] and rehab. She does NOT want to go back to [facility]. CM will continue to follow and assist as needed Senior Php Software Developer: Randi Malik DCPIA - Discharge Planning Initial Assessment Updated by [id number]: Randi Malik on 03/07/20 10:11 am * Is the patient Alert and Oriented? Yes * How many steps to enter\\exit or inside your home? RAMP * PCP [facility] * [facility] * Preadmission Environment Home with Family * ADLs Partial Dependent * Partial ADLs (Assistance needed) Ambulation Bathing Dressing Medication Management Toileting * Equipment Elevated Toliet Seat Other Power Chair or Electric Scooter Shower Chair Tub Bench Wheelchair * Other Equipment TRANSFER BOARD * List name and contact numbers for known caregivers / representatives who currently or will assist patient after discharge: TOBY (SPOUSE) ROOPA (SON) [phone] * Verbal permission to speak to the caregivers and representatives has been obtained from the patient. Yes * Community resources currently utilized [facility] * Please name any agencies selected above. AIDE SERVICE OUT OF [facility] WITH SIENNA * Additional services required to return to the preadmission environment? Yes * Can the patient safely return to the preadmission environment? No * Has this patient been hospitalized within the prior 30 days at any hospital? No Coverage Notice Reviewer: [id number] - Randi Malik Notice Issued Date-Time: 03/07/2020 8:45 Notice Type: Patient Choice Letter Notice Delivered To: Patient Relationship to Patient: Printmaker Name: Delivery Method: HAND - Hand Delivered Rosemary Days: Prior Verbal Notification: Recipient Understood Notice: Yes Recipient Signature: Yes Med Rec Note Co-signed by Attending: Coverage Notice Comment: Reviewer: [id number] - Alaina Gonzalez Notice Issued Date-Time: 03/13/2020 10:10 Notice Type: IM Discharge Notice Notice Delivered To: Patient Relationship to Patient: Printmaker Name: Delivery Method: HAND - Hand Delivered Rosemary Days: Prior Verbal Notification: Recipient Understood Notice: Yes Recipient Signature: Med Rec Note Co-signed by Attending: Coverage Notice Comment: VERBALIZED UNDERSTANDING. UNABLE TO SIGN BECAUSE OF USE OF HANDS Last DP export: 03/13/20 3:38 p Patient Name: SABI MILLER Page [id number] at 1122 All edits/amendments must be made on the electronic document DICTATION DATE: 03/14/201120 [employer]: CASTILLO 03/14/20 112 RPT#: [id number] DC DATE: STATUS: ADM IN [address] [place] [address] END OF REPORT
--- NOTE | 2020-03-14 11:29 | MORECARE ---
CASE MANAGEMENT DISCHARGE SUMMARY PATIENT: SABI MILLER UNIT: [id number] ADM DATE: 03/03/20 AGE: 64 : 57 SEX: F ROOM/BED: D.2201 AUTHOR: VINNIE REYES PHYSICIAN: REFERRING PHYSICIAN: PEEWEE HENRY MD DATE OF SERVICE: 03/14/20 Discharge Plan Patient Name: SABI MILLER Facility: [facility]:[place] : 1955 Planned Disposition: Inpatient Rehab Anticipated Discharge Date: Discharge Date: Expected LOS: Initial Reviewer: [email or web address] Initial Review Date: 03/03/2020 Generated: 03/14/20 12:29 pm Comments DCP- Discharge Planning Updated by [id number]: Randi Malik on 03/14/20 10:[address] Patient has been accepted to [facility] to a skilled bed. They will pick her up at 1:30 via their transportation. DCP- Discharge Planning Updated by [email or web address]: Alaina Gonzalez on 03/13/20 3:[address] Patient Name: SABI MILLER Admission Status: ER Accout number: [id number] Admission Date: 03-03-2020 : 1955 Admission Diagnosis:WEAKNESS Attending: PEEWEE HENRY Current LOS: 10 Anticipated DC Date: Planned Disposition: Inpatient Rehab Primary Insurance: [facility] MEDICARE SOLUTIONS Discharge Planning Comments: SPOKE WITH TAWNY AT [facility], SHE IS STILL WAITING ON [facility] FOR SNF. CM TO FOLLOW AND ASSIST NEEDED. Shrub Planter: Alaina Gonzalez DCP- Discharge Planning Updated by [id number]: Randi Malik on 03/10/20 1:[address] PATIENT REALLY JUST WANTS TO SMOKE, [facility] WILL HAVE A BED OPEN ON FRIDAY AFTERNOON, BUT WILL HAVE TO BE QUARENTINED FOR 14 DAYS THEN SHE CAN GO SMOKE. THEY WILL ACCEPT HER IF SHE AGREE'S TO THIS SHE STATED THAT SHE WILL JUST GO HOME AND "DON CAN GET OFF HIS ASS AND HELP HER" DCP- Discharge Planning Updated by [id number]: Randi Malik on 03/10/20 10:[address] SPOKE WITH PATIENT ABOUT SMOKING FACILITY OPTIONS SHE [facility] I [facility]ED [facility] WAIT FOR ACCEPTANCE DCP- Discharge Planning Updated by [id number]: Randi Mlaik on 03/10/20 9:[address] spoke with Tawny with [facility] and they can not accept her, [facility] Can not accept her because she is a 2 person assist. She is trying to see about [facility]. I spoke with the and he states that she will only go to a place where she could smoke. I do not believe that [facility] is a smoking facility I will check with Tawny. DCP- Discharge Planning Updated by [id number]: Randi Malik on 03/09/20 12:[address] PATIENT IS REFUSING TO GO TO [facility] INPATIENT REHAB, I HAVE SPOKEN WITH HER AND HAVE RECEIVED PERMISSION FROM [facility] FOR HER TO COME AND ASSESS HER TO SEE IF HE COULD TAKE CARE OF HER AT HOME BECAUSE HE AND HIS SON ARE THE PRIMARY CARE TAKERS SEBASTIEN IS HER SPOUSE CONTACT # [phone] DCP- Discharge Planning Updated by [id number]: Randi Malik on 03/09/20 7:[address] UPDATED CLINICALS FAXED TO [facility] DCP- Discharge Planning Updated by [id number]: Randi Malik on 03/07/20 9:[address] Patient Name: SABI MILLER Admission Status: ER Accout number: [id number] Admission Date: 03-03-2020 : 1955 Admission Diagnosis: Attending: PEEWEE HENRY Current LOS: 4 Anticipated DC Date: Planned Disposition: Inpatient Rehab Primary Insurance: [facility] MEDICARE SOLUTIONS Discharge Planning Comments: CM met with patient to complete initial dc planning assessment. CM educated patient on the CM role and verbal consent given by patient to complete assessment. Patient lives at home with her spouse and adult son, where she stated that she was able to transfer herself with her transfer board and feed herself with her good arm. When I was speaking with the patient, she stated that she is not able to use her good arm AT ALL. She could not draft roller picker her coffee cup or push the call light. She has a ramp, BSC, Shower chair, transfer board, electric wheelchair, reg wheelchair at home. She stated that she has an aide service out of [facility] who comes daily & she was current with [facility]. She would like to go to our Inpatient rehab at [facility] as her first choice. Her second choice is [facility] and rehab. She does NOT want to go back to [facility]. CM will continue to follow and assist as needed Shrub Planter: Randi Malik DCPIA - Discharge Planning Initial Assessment Updated by [id number]: Randi Malik on 03/07/20 10:11 am * Is the patient Alert and Oriented? Yes * How many steps to enter\\exit or inside your home? RAMP * PCP [facility] * [facility] * Preadmission Environment Home with Family * ADLs Partial Dependent * Partial ADLs (Assistance needed) Ambulation Bathing Dressing Medication Management Toileting * Equipment Elevated Toliet Seat Other Power Chair or Electric Scooter Shower Chair Tub Bench Wheelchair * Other Equipment TRANSFER BOARD * List name and contact numbers for known caregivers / representatives who currently or will assist patient after discharge: TOBY (SPOUSE) ROOPA (SON) [phone] * Verbal permission to speak to the caregivers and representatives has been obtained from the patient. Yes * Community resources currently utilized [facility] * Please name any agencies selected above. AIDE SERVICE OUT OF [facility] WITH [facility] * Additional services required to return to the preadmission environment? Yes * Can the patient safely return to the preadmission environment? No * Has this patient been hospitalized within the prior 30 days at any hospital? No Coverage Notice Reviewer: [id number] - Randi Malik Notice Issued Date-Time: 03/07/2020 8:45 Notice Type: Patient Choice Letter Notice Delivered To: Patient Relationship to Patient: Router Tender Name: Delivery Method: HAND - Hand Delivered Rosemary Days: Prior Verbal Notification: Recipient Understood Notice: Yes Recipient Signature: Yes Med Rec Note Co-signed by Attending: Coverage Notice Comment: Reviewer: [id number] - Alaina Gonzalez Notice Issued Date-Time: 03/13/2020 10:10 Notice Type: IM Discharge Notice Notice Delivered To: Patient Relationship to Patient: Router Tender Name: Delivery Method: HAND - Hand Delivered Rosemary Days: Prior Verbal Notification: Recipient Understood Notice: Yes Recipient Signature: Med Rec Note Co-signed by Attending: Coverage Notice Comment: VERBALIZED UNDERSTANDING. UNABLE TO SIGN BECAUSE OF USE OF HANDS Last DP export: 03/14/20 10:22 a Patient Name: SABI MILLER Page 79003 at 1129 All edits/amendments must be made on the electronic document DICTATION DATE: 03/14/201128 FENCE SETTER: CASTILLO 03/14/201128 RPT#: [id number] DC DATE: STATUS: ADM IN [facility] [address] [place] [address] END OF REPORT
--- NOTE | 2020-03-14 14:13 | NUR ---
OT NOTE: PT CONTINUALLY ASKING WHEN SHE IS GOING TO REHAB. EXPLAINED TO PT SEVERAL TIMES THAT WE WERE JUST WAITING FOR INSURANCE APPROVAL. BED MOB WITH MAX ASSIST; SITTING BALANCE WITH MAX ASSIST; WT BEARING AND WT SHIFTING ACT WHILE SITTING UP ON EOB. CONSTANT CUES TO KEEP HEAD UP. A/AROM EXS WITH R UE; TRAINING IN BED MOB INCLUDING ROLLING AND SCOOTING UP IN BED, AND USING R LE TO ASSIST L LE. LAWRENCE VALDERRAMA, OTR/L [phone]
--- NOTE | 2020-03-14 17:29 | NUR ---
IV THERAPY REMOVED FROM [facility]. AMBULANCE HAS ARRIVED TO PICK HER UP. CL IN [place]. W[facility]M
--- NOTE | 2020-03-15 10:14 | MORECARE ---
CASE MANAGEMENT DISCHARGE SUMMARY PATIENT: SABI MILLER UNIT: [id number] ADM DATE: 03/03/20 AGE: 64 : 57 SEX: F ROOM/BED: D.2201 AUTHOR: VINNIE REYES PHYSICIAN: REFERRING PHYSICIAN: PEEWEE HENRY MD DATE OF SERVICE: 03/15/20 Discharge Plan Patient Name: SABI MILLER Facility: [facility]:[place] : 1955 Planned Disposition: Inpatient Rehab Anticipated Discharge Date: Discharge Date: 03/14/2020 Expected LOS: 0 Initial Reviewer: [email or web address] Initial Review Date: 03/03/2020 Generated: 03/15/20 11:14 am Comments DCP- Discharge Planning Updated by [email or web address]: Randi Malik on 03/14/20 10:[address] Patient has been accepted to [facility] to a skilled bed. They will pick her up at 1:30 via their transportation. DCP- Discharge Planning Updated by [email or web address]: Alaina Gonzalez on 03/13/20 3:[address] Patient Name: SABI MILLER Admission Status: ER Accout number: [id number] Admission Date: 03-03-2020 : 1955 Admission Diagnosis:WEAKNESS Attending: PEEWEE HENRY Current LOS: 10 Anticipated DC Date: Planned Disposition: Inpatient Rehab Primary Insurance: [facility] MEDICARE SOLUTIONS Discharge Planning Comments: SPOKE WITH TAWNY AT [facility], SHE IS STILL WAITING ON [facility] FOR SNF. CM TO FOLLOW AND ASSIST NEEDED. Measurement Advisor: Alaina Gonzalez DCP- Discharge Planning Updated by [email or web address]: Randi Malik on 03/10/20 1:[address] PATIENT REALLY JUST WANTS TO SMOKE, [facility] WILL HAVE A BED OPEN ON FRIDAY AFTERNOON, BUT WILL HAVE TO BE QUARENTINED FOR 14 DAYS THEN SHE CAN GO SMOKE. THEY WILL ACCEPT HER IF SHE AGREE'S TO THIS SHE STATED THAT SHE WILL JUST GO HOME AND "DON CAN GET OFF HIS ASS AND HELP HER" DCP- Discharge Planning Updated by [email or web address]: Randi Malik on 03/10/20 10:[address] SPOKE WITH PATIENT ABOUT SMOKING FACILITY OPTIONS SHE [facility] I [facility]ED OUT [facility] WA[facility] FOR [facility]PTANCE DCP- Discharge Planning Updated by [email or web address]: Randi Malik on 03/10/20 9:[address] spoke with Tawny with [facility] and they can not accept her, [facility] Can not accept her because she is a 2 person assist. She is trying to see about [facility]. I spoke with the and he states that she will only go to a place where she could smoke. I do not believe that [facility] is a smoking facility I will check with Tawny. DCP- Discharge Planning Updated by [id number]: Randi Malik on 03/09/20 12:[address] PATIENT IS REFUSING TO GO TO [facility] INPATIENT RE[facility], I HAVE SPOKEN WITH HER AND HAVE RECEIVED PERMISSION FROM [facility] FOR HER TO COME AND ASSESS HER TO SEE IF HE COULD TAKE CARE OF HER AT HOME BECAUSE HE AND HIS SON ARE THE PRIMARY CARE TAKERS SEBASTIEN IS HER SPOUSE CONTACT # [phone] DCP- Discharge Planning Updated by [email or web address]: Randi Malik on 03/09/20 7:[address] UPDATED CLINICALS FAXED TO [facility] DCP- Discharge Planning Updated by [id number]: Randi Malik on 03/07/20 9:[address] Patient Name: SABI MILLER Admission Status: Accout number: [id number] Admission Date: 03-03-2020 : 1955 Admission Diagnosis: Attending: PEEWEE HENRY Current LOS: 4 Anticipated DC Date: Planned Disposition: Inpatient Rehab Primary Insurance: [facility] MEDICARE SOLUTIONS Discharge Planning Comments: CM met with patient to complete initial dc planning assessment. CM educated patient on the CM role and verbal consent given by patient to complete assessment. Patient lives at home with her spouse and adult son, where she stated that she was able to transfer herself with her transfer board and feed herself with her good arm. When I was speaking with the patient, she stated that she is not able to use her good arm AT ALL. She could not tile picker her coffee cup or push the call light. She has a ramp, BSC, Shower chair, transfer board, electric wheelchair, reg wheelchair at home. She stated that she has an aide service out of [facility] who comes daily & she was current with [facility]. She would like to go to our Inpatient rehab at [facility] as her first choice. Her second choice is [facility] and rehab. She does NOT want to go back to [facility]. CM will continue to follow and assist as needed Measurement Advisor: Randi Malik DCPIA - Discharge Planning Initial Assessment Updated by [id number]: Randi Malik on 03/07/20 10:11 am * Is the patient Alert and Oriented? Yes * How many steps to enter\\exit or inside your home? RAMP * PCP [facility] * Pharmacy [facility] * Preadmission Environment Home with Family * ADLs Partial Dependent * Partial ADLs (Assistance needed) Ambulation Bathing Dressing Medication Management Toileting * Equipment Elevated [place] Seat Other Power Chair or Electric Scooter Shower Chair Tub Bench Wheelchair * Other Equipment TRANSFER BOARD * List name and contact numbers for known caregivers / representatives who currently or will assist patient after discharge: TOBY (SPOUSE) ROOPA (SON) [phone] * Verbal permission to speak to the caregivers and representatives has been obtained from the patient. Yes * Community resources currently utilized [facility] * Please name any agencies selected above. AIDE SERVICE OUT OF [facility] * Additional services required to return to the preadmission environment? Yes * Can the patient safely return to the preadmission environment? No * Has this patient been hospitalized within the prior 30 days at any hospital? No Coverage Notice Reviewer: [id number] - Randi Malik Notice Issued Date-Time: 03/07/2020 8:45 Notice Type: Patient Choice Letter Notice Delivered To: Patient Relationship to Patient: Paraprofessional Aide Name: Delivery Method: HAND - Hand Delivered Rosemary Days: Prior Verbal Notification: Recipient Understood Notice: Yes Recipient Signature: Yes Med Rec Note Co-signed by Attending: Coverage Notice Comment: Reviewer: [id number] - Alaina Gonzalez Notice Issued Date-Time: 03/13/2020 10:10 Notice Type: IM Discharge Notice Notice Delivered To: Patient Relationship to Patient: Paraprofessional Aide Name: Delivery Method: HAND - Hand Delivered Rosemary Days: Prior Verbal Notification: Recipient Understood Notice: Yes Recipient Signature: Med Rec Note Co-signed by Attending: Coverage Notice Comment: VERBALIZED UNDERSTANDING. UNABLE TO SIGN BECAUSE OF USE OF HANDS Last DP export: 03/14/20 10:29 a Patient Name: SABI MILLER Page [phone] at 1014 All edits/amendments must be made on the electronic document DICTATION DATE: 03/15/20 1014 EQUIPMENT PLANNER: CASTILLO 03/15/20 1014 RPT#: [id number] DC DATE:03/14/20 STATUS: DIS IN [facility] [address] [place] [address] END OF REPORT
== END 2020-03-14 17:00 | DRG 69 ==
LOC: D.ER 11:11 → D.MS 14:59
PROVIDERS: Family Medicine; ADMIT Internal Medicine Nephrology; ATTEND Internal Medicine Nephrology
DX: G45.9 Transient cerebral ischemic attack, unspecified (principal); R53.2 Functional quadriplegia; I50.31 Acute diastolic (congestive) heart failure; I69.354 Hemiplegia and hemiparesis following cerebral infarction affecting left non-dominant side; F17.203 Nicotine dependence unspecified, with withdrawal; N39.0 Urinary tract infection, site not specified; E44.0 Moderate protein-calorie malnutrition; I11.0 Hypertensive heart disease with heart failure; I48.91 Unspecified atrial fibrillation; I25.10 Atherosclerotic heart disease of native coronary artery without angina pectoris; E11.65 Type 2 diabetes mellitus with hyperglycemia; E78.5 Hyperlipidemia, unspecified; K21.9 Gastro-esophageal reflux disease without esophagitis; F41.8 Other specified anxiety disorders; M81.0 Age-related osteoporosis without current pathological fracture; Z68.25 Body mass index [BMI] 25.0-25.9, adult

== ENCOUNTER 2020-04-13 09:06 | Inpatient (IN) | payer MEDICARE, MEDICAID ==
[~2020-04-13] VITALS: Ht 170.2 cm; Wt 66.6 kg
--- NOTE | ~2020-04-13 | HEMODYNAMI ---
PATIENT:SABI MILLER MEDICAL RECORD: [id number] : 57 LOCATION:[facility]# [id number] ADMISSION DATE: 05/24/20 Generatedon:05/24/202012:24 Patient name: SABI MILLER Patient #: [id number] SSN: DO B: 1955 Date of study: 05/24/2020 Page: Of Hemodynamic Procedure Report Patient Data Patient Demographics Procedure consent was obtained First Name: SABI Gender: Female Last Name: PAUL : 1955 Middle Initial: JAZLYN Age: 65 year(s) Patient #: [id number] Race: Unknown Additional ID: [id number] Contact details Address: [address] [place] [address] State: [place] City: [place] Zip code: [address] Past Medical History Allergies Allergen Reaction Date Comments Reported Other allergy 09/09/2018 Benadryl, Chlopheniramine. Other allergy 09/11/2018 Benadryl, Chlorpheniraime. Admission Admission Data Admission Date: 05/24/2020 Admission Time: 7:39 Room #: [facility] Procedure Procedure Types Cath Procedure Peripheral vascular Intervention Stent Carotid Stent Procedure Description Procedure Date Procedure Date: 05/24/2020 Procedure Start Time: 11:10 Procedure Staff Name Function Nic Hale MD Performing Physician Dennis Wolf RT Monitor MAXIMILIANO GAINES RT Scrub Tony MUÑOZ RN Nurse Procedure Data Cath Procedure Fluoroscopy Diagnostic fluoroscopy Total fluoroscopy Time: 9.9 time: 9.9 min min Diagnostic fluoroscopy Total fluoroscopy dose: 293 dose: 293 mGy mGy Contrast Material Contrast Material Type Amount (ml) Isovue 300 130 Diagnostic catheters Device Type Used For End Catheter Placement Merit Fran Galiciastein 5FR. 100CM catheter ([id number]) Procedure Medications Medication Administration Route Dosage Lidocaine 1% added to field 20 Heparin Flush Bag added to field 2 bags (1000units/500ml NS) Heparin Flush Bag added to field 2 bags (1000units/500ml NS) Versed I.V. 0.5 mg Fentanyl I.V. 25 mcg Heparin Bolus I.V. 4000 units Heparin Bolus I.V. 2000 units Versed I.V. 0.5 mg Fentanyl I.V. 25 mcg Hemodynamics Rest Heart Rate: 78 (bpm) Snapshots Pre Cath Intra NCS Post Cath Vital Signs Time Heart Resp SPO2 etCO2 NIBP (mmHg) Rhythm Pain Sedation Rate (ipm) (%) (mmHg) Status Level (bpm) 10:48:18 77 17 81 39 Measuring NSR 0 (11) 9(A) , No pain 10:48:27 77 14 38.2 161/79(124) NSR 0 (11) 9(A) , No pain 10:52:51 77 16 97 39.8 168/79(132) NSR 0 (11) 9(A) , No pain 10:57:13 76 13 97 38.3 166/77(126) NSR 0 (11) 9(A) , No pain 11:01:35 77 10 97 29.2 161/72(118) NSR 0 (11) 9(A) , No pain 11:05:57 78 13 97 27 158/71(120) NSR 0 (11) 9(A) , No pain 11:10:23 77 16 97 32.3 161/66(114) NSR 0 (11) 9(A) , No pain 11:14:35 76 9 96 42 142/72(117) NSR 0 (11) 9(A) , No pain 11:18:53 77 11 97 41.3 151/73(120) NSR 0 (11) 9(A) , No pain 11:23:18 78 10 97 39.8 141/63(103) NSR 0 (11) 9(A) , No pain 11:27:38 78 11 97 40.5 142/63(110) NSR 0 (11) 9(A) , No pain 11:31:54 79 12 97 39.8 148/68(111) NSR 0 (11) 9(A) , No pain 11:36:14 78 7 97 43.5 146/66(113) NSR 0 (11) 9(A) , No pain 11:40:34 80 12 97 40.5 165/70(134) NSR 0 (11) 9(A) , No pain 11:44:56 76 13 97 39 156/66(120) NSR 0 (11) 9(A) , No pain 11:49:16 75 12 97 39 146/62(105) NSR 0 (11) 9(A) , No pain 11:53:34 78 13 98 25.5 149/70(110) NSR 0 (11) 9(A) , No pain 11:57:51 69 11 97 39 111/51(93) NSR 0 (11) 9(A) , No pain 12:02:05 62 10 96 38.3 100/49(75) NSR 0 (11) 9(A) , No pain 12:04:28 64 8 98 41.3 99/54(79) NSR 0 (11) 9(A) , No pain 12:08:05 65 11 97 39 108/55(88) NSR 0 (11) 9(A) , No pain 12:12:17 68 13 97 37.5 102/50(71) NSR 0 (11) 9(A) , No pain 12:16:27 67 10 97 36.8 104/49(79) NSR 0 (11) 9(A) , No pain 12:20:37 67 10 96 39.8 108/51(73) NSR 0 (11) 9(A) , No pain Medications Time Medication Route Dose Verified Delivered Reason Notes Effec tiveness by by 11:05:17 Lidocaine 1% added 20ml Nic Lucero to vial Geoffrey trevino MD, MD 11:05:47 Heparin Flush added 2 Nic Lucero used for Bag to bags Geoffrey Hale procedure (1000units/500ml field MD SOTO NS) 11:05:47 Heparin Flush added 2 Nic Lucero used for Bag to bags Geoffrey Hale procedure (1000units/500ml field MD SOTO NS) 11:12:04 Versed I.V. 0.5 Nic Jimenez for mg Geoffrey MUÑOZ sedation MD CHOUDHURY 11:12:19 Fentanyl I.V. 25 Nic Jimenez for mcg Geoffrey MUÑOZ sedation MD CHOUDHURY 11:18:08 Heparin Bolus I.V. 4000 Nic Jimenez Per units Geoffrey MUÑOZ physician MD CHOUDHURY 11:46:21 Heparin Bolus I.V. 2000 Nic Jimenez Per units Geoffrey MUÑOZ physician RN 11:55:47 Versed I.V. 0.5 Nic Jimenez for mg Geoffrey MUÑOZ sedation RN 11:55:56 Fentanyl I.V. 25 Nic Jimenez for mcg Geoffrey MUÑOZ sedation associate application developer Log Time Note 10:35:55 Tnoy MUÑOZ RN sent for patient. Start room use. 10:36:03 Time tracking: Regular hours (M-F 7:00 - 5:00) 10:36:11 Plan of Care:Hemodynamics will remain stable., Cardiac rhythm will remain stable., Comfort level will be maintained., Respiratory function will remain adequate., Patient/ family verbilizes understanding of procedure., Procedure tolerated without complication., Recovers from procedure without complications.. 10:36:20 Use device set IR Diagnostic 10:36:23 Tegaderm 4 x 4 (1626W) opened to sterile field. 10:36:24 Sterile Angiographic Pack opened to sterile field. 10:36:25 Bag Decanter (2002S) opened to sterile field. 10:36:25 ACIST Manifold (96478) opened to sterile field. 10:36:26 ACIST Hand Control (54917) opened to sterile field. 10:36:27 ACIST Syringe (10687) opened to sterile field. 10:36:29 TUBING Contrast Injection High Pressure (VUF175H) opened to sterile field. 10:36:39 Patient received from Outpatients to IR Alert and oriented. Tansferred to table in Supine position. 10:36:42 Signed procedure consent form obtained from patient. 10:36:43 ECG and BP/O2 sat monitors applied to patient. 10:36:44 Full Disclosure recording started 10:36:46 - 10:36:51 H&P Date Dictated: 05/24/2020 H&P Addendum completed by physician on day of procedure. (MUST COMPLETE FOR ALL OUTPATIENTS). 10:36:52 Pre-procedure instructions explained to patient. 10:36:52 Pre-op teaching completed and patient verbalized understanding. 10:36:54 Family unavailable. 10:36:56 Patient NPO since Midnight. 10:41:47 Is the patient allergic to Iodine/contrast media? No. 10:41:50 Is patient on blood thinner?No 10:41:53 Patient diabetic? No. 10:41:56 - 10:41:56 ----Pre-sedation anethsthesia assessment.---- 10:41:59 Previous problem with sedation/anesthesia? No ? 10:42:00 Snore? Yes 10:42:04 Sleep apnea? No 10:42:17 Deviated septum? No 10:42:19 Opens mouth fully? Yes 10:42:20 Sticks out tongue? Yes 10:42:22 Airway obstruction? No ? 10:42:28 Dentures? No ? 10:46:30 Vital chart was started 10:47:33 Pre procedure: right dorsailis pedis pulse Doppler 10:47:55 IV patent on arrival in right forearm with 0.9% NaCl at [facility]. 10:47:58 Sharps counted by scrub and verified by R.N. 10:48:07 Right groin area was prepped with chlora-prep and draped in sterile fashion 10:48:23 Baseline sample Acquired. 10:55:06 3a) 45-59 Moderately reduced kidney function. 10:55:11 Maximum allowable contrast dose (3.7 X eGFR X 0.75)133.2 ml. 11:05:17 Lidocaine 1% 20ml vial added to field was administered by Nic baron MD; ; Verbal order read back and verified. 11:05:47 Heparin Flush Bag (1000units/500ml NS) 2 bags added to field was administered by Nic Hale MD; used for procedure; Verbal order read back and verified. 11:05:47 Heparin Flush Bag (1000units/500ml NS) 2 bags added to field was administered by Nic Hale MD; used for procedure; Verbal order read back and verified. 11:08:50 Physician arrived 11:08:51 --------ALL STOP TIME OUT------ 11:08:53 Final Timeout: patient, procedure, and site verified with staff and physician. All members of the team are in agreement. 11:08:55 Right groin site verified by team. 11:09:00 Fire Safety Assessment: A--An alcohol-based skin anteseptic being used preoperatively., C--Open oxygen or nitrous oxide is being used. 11:09:03 Sedation plan: IV Moderate Sedation Medication:Versed, Fentanyl 11:10:22 Procedure started. 11:10:26 Local anesthetic to right femoral artery with Lidocaine 1% by Nic Hale MD.INITIAL ACCESS ONLY 11:10:34 A JP3 Measurement Fran White 5FR. 100CM catheter ([id number]) was advanced over the wire and used for . 11:10:36 DOC .035 wire (P66417) opened to sterile field. 11:10:36 NICOLE 260 wire (A01666) opened to sterile field. 11:10:37 CHOICE PT Extra Support J 300cm guide wire (0072077I7) opened to steril e field. 11:10:37 SHEATH 5FR [place] (ULA175) opened to sterile field. 11:10:37 Micropuncture VSI 4FR kit opened to sterile field. 11:10:38 Cook RAABE 6FR. 90cm guide sheath opened to sterile field. 11:10:38 INFLATOR BasixTOUCH (TS3986) opened to sterile field. 11:12:04 Versed 0.5 mg I.V. was administered by Tony MUÑOZ RN; for sedation; Verbal order read back and verified. 11:12:19 Fentanyl 25 mcg I.V. was administered by Tony MUÑOZ RN; for sedation; Verbal order read back and verified. 11:18:08 Heparin Bolus 4000 units I.V. was administered by Tony MUÑOZ RN; Pe r physician; Verbal order read back and verified. 11:20:23 GLIDE WIRE ANGLE 180cm (PX0400) opened to sterile field. 11:20:31 TORQUE DEVICE PLASTIC .038 ( TD01) opened to sterile field. 11:32:12 SPIDER EMBOLIC PROTECTION DEVICE 5MM ([id number]) opened to sterile field. 11:46:21 Heparin Bolus 2000 units I.V. was administered by Tony MUÑOZ RN; Pe r physician; Verbal order read back and verified. 11:49:11 Inflate balloon Inflation number: 1 A VIATRAC 4 x 2 x 135 balloon ([id number]) was prepped and advanced across the Proximal Internal Carotid, Left , 11:55:47 Versed 0.5 mg I.V. was administered by Tony MUÑOZ RN; for sedation; Verbal order read back and verified. 11:55:56 Fentanyl 25 mcg I.V. was administered by Tony MUÑOZ RN; for sedation; Verbal order read back and verified. 11:56:33 PROTEGE RX TAPERED 8-6MM X 40MM X 135CM stent ([id number]) was deploye d across Proximal Internal Carotid, Left . 11:58:25 Inflate balloon Inflation number: 2 A VIATRAC 6 x 4 x 135 balloon ([id number]) was prepped and advanced across the Proximal Internal Carotid, Left , then inflated to 8 MARYA for 0:03 (min:sec) . 12:04:17 SHEATH 6FR [place] (IIH526) opened to sterile field. 12:06:56 ANGIOSEAL-VIP PLUS 6 FR opened to sterile field. 12:11:03 Procedure ended.(Physican Out) 12:11:37 Fluoroscopy time 09.90 minutes. 12:11:46 Fluoroscopy dose: 293 mGy 12:11:46 Flurop Dose total: 293 12:12:14 Contrast amount:Isovue 300 130ml. 12:12:23 Post-op/insertion site Right Femoral artery dressed using a 4 x 4 and Tegaderm. 12:12:26 Post right femoral artery:stable 12:12:33 Post Procedure Pulses reassessed and unchanged 12:12:35 Post procedure instruction explained to patient.Patient verbalizes understanding. 12:12:35 Procedure and supply charges have been captured, reviewed, submitted an d are correct. 12:23:33 Report given to CVICU. 12:23:36 Patient transfered to CVICU with Bed. 12:24:03 Vital chart was stopped Intervention Summary Intervention Notes Time ActionType Lesion and Equipment Action# Pressure Duration Attributes Used 11:49:11 Inflate Proximal VIATRAC 4 x 2 1 8 00:19 balloon Internal x 135 balloon Carotid, ([id number]) Left 11:56:33 Deploy self Proximal PROTEGE RX 1 expanding Internal TAPERED 8-6MM stent Carotid, X 40MM X Left 135CM stent ([id number]) 11:58:25 Inflate Proximal VIATRAC 6 x 4 2 8 00:03 balloon Internal x 135 balloon Carotid, ([id number]) Left Device Usage Item Name Manufacture Quantity Catalog Number Hospital Part Current Minimal Lot# / Charge Number Stock Stock Serial# Code Tegaderm 4 x 4 3M 1 1626W 027123 249729 024142 5 (1626W) Sterile Cardinal 1 [id number] 460420 791854 5 Angiographic Health Pack Bag Decanter Microtek 1 2001S 372138 91704 800241 5 (2001S) Medical Inc. ACIST Manifold Acist 1 80047 513760 328488 166312 5 (69585) Medical Systems Inc ACIST Hand Acist 1 58512 936589 977918 576192 5 Control Medical (61408) Systems Inc ACIST Syringe Acist 1 64702 838937 528254 277966 20 (84807) Medical Systems Inc TUBING Merit 1 [id number] 679186 574539 299581 5 Contrast Medical Injection High Pressure (RPM732O) Merit Impress Merit 1 785759JHQ 765983 410316 5 White 5FR. Medical 100CM catheter (614533JZX) DOC .035 wire PLASTIQ Medical 1 Q47104 330733 577886 5 (B33665) NICOLE 260 wire Cook Medical 1 K48202 264838 01636 048556 5 (O48221) CHOICE PT [place] 1 [id number] 30205220190427 531060 5 [id number] Extra Support Scientific J 300cm guide wire (9643223O1) SHEATH 5FR Terumo 1 BMU545 515283 222824 482916 5 [place] (BXH649) Micropuncture VSI VASCULAR 1 7266V 527565 403611 5 VSI 4FR kit [facility] 1 B54540 019480 035334 5 6FR. 90cm guide sheath INFLATOR Merit 1 QC5728 600988 891350 857213 5 iloho (AF5984) GLIDE WIRE Terumo 1 DJ2157 153109 828452 461091 5 ANGLE 180cm (JA0962) TORQUE DEVICE [place] 1 TD01 498282 069568 386203 5 PLASTIC .038 ( Scientific TD01) SPIDER EMBOLIC Medtronic 1 [id number] 958233 180006 5 PROTECTION DEVICE 5MM ([id number]) VIATRAC 4 x 2 Rojas 1 0440485-10 805924 766951 543743 5 x 135 balloon Vascular ([id number]) PROTEGE RX Medtronic 1 [id number]-[id number] 396077 64712 173550 5 [id number] TAPERED 8-6MM X 40MM X 135CM stent ([id number]) VIATRAC 6 x 4 Rojas 1 2980951-74 529987 862521 209399 5 2862697 x 135 balloon Vascular ([id number]) SHEATH 6FR Terumo 1 OGW118 629546 259537 035131 40 [place] (XEN973) ANGIOSEAL-VIP St Felix 1 636326 449136 363762 626132 5 [id number] PLUS 6 FR Signature Audit [place] Stage Time Signature Unsigned Intra-Procedure 05/24/2020 Dennis 12:23:59 PM [place] RT (R) (CV) [facility] [address] [place] [address]
[~2020-04-13 09:06] MED LIST changes: +COREG12.5 MG PO
[2020-05-24] VITALS (24 sets, daily range): BP systolic 77–150; BP diastolic 43–85; Ht 170.2 cm; Wt 66.6 kg
[2020-05-24 08:07] LABS: BASOPHILS 0.1 % (0-2); EOSINOPHILS 1.5 % (0-7); HEMATOCRIT 42.6 % (36.0-48.0); IMMATURE GRANULOCYTES 0.3 % (0-5); LYMPHOCYTES 17.1 % (15-50); MCH 31.4 pg (26.0-34.0); MCHC 32.9 g/dL (31.0-37.0); MCV 95.5 fL (80.0-100.0); MEAN PLATELET VOLUME 10.7 fL (7.4-10.4); MONOCYTES 4.5 % (2-11); NEUTROPHILS 76.5 % (40-80); RBC 4.46 10x6/uL (4.00-5.40); RDW 12.5 % (11.5-14.5); WBC 9.6 10x3/uL (4.8-10.8)
[2020-05-24 08:12] LABS: PLATELET COUNT 305 10x3/uL (130-400)
[2020-05-24 08:18] LABS: ANION GAP 12.1 mmol/L (8-16); CALCIUM 9.8 mg/dL (8.5-10.1); CARBON DIOXIDE 29.2 mmol/L (21.0-32.0); CREATININE - SERUM 1.2 mg/dL (0.6-1.3); POTASSIUM - SERUM 4.3 mmol/L (3.5-5.1)
[2020-05-24 08:25] LABS: APTT 30.8 SECONDS (22.8-39.4); INR 1.03 (0.85-1.17); PROTIME 13.4 SECONDS (11.6-15.0)
[2020-05-24] MEDS ORDERED: TYLENOL W/CODEI1 TAB PO (09:16)
[2020-05-24] MEDS ORDERED: ULTRAM50 MG PO (09:16)
--- NOTE | 2020-05-24 09:23 | NUR ---
0900-IV SITED TO [facility] X 1 20G.
--- NOTE | 2020-05-24 12:30 | NUR ---
RECEIVED FROM INTERVENTIONAL RADIOLOGY BY [facility]. IR STAFF IN ATTENDANCE. PATIENT IS AWAKE AND ALERT. LEFT PUPIL NORMAL AND REACTIVE TO LIGHT. RIGHT PUPIL FULLY DIALATED AND NONREACTIVE. PATIENT STATES SHE HAD A STROKE SEVERAL YEARS AGO AND "BLEW-OUT" HER RIGHT EYE AND HAS NO VISION. MONITORS APPLIED. SINUS RHYTHM. O2 AT 2L/M VIA N/C. IV OF NS 1L TO RIGHT HAND PIV AT 75ML/HR. RIGHT GROIN ACCESS SITE WITH DRESSING INTACT. NO SWELLING OR PAIN. PULSE INTACT BY PALPATION.
--- NOTE | 2020-05-24 13:30 | NUR ---
REPORT GIVEN TO MACEY MCKEON, WHO IS ASSUMING CARE OF THIS PATIENT.
--- NOTE | 2020-05-24 15:05 | NUR ---
PT GIVEN A SANDWICH TO EAT, PT UNABLE TO EAT WITH HER RIGHT ARM AND PREVIOUS DEFICETS, PT ASSISTED AND WAS EATING WITHOUT PROBLEMS, WILL MONITOR FOR CHANGES
--- NOTE | 2020-05-24 17:00 | NUR ---
PT RESTING WITH EYES CLOSED, RESP EVEN AND NON LABORED, VSS, PULSES 2+, RIGHT GROIN SOFT
--- NOTE | 2020-05-24 19:00 | NUR ---
PT ASSESSMENT COMPLETED AT THIS TIME, PT RESTING WITH EYES CLOSED RESP EVEN AND NON LABORED, VSS, PT AWAKES TO NAME, NO DISTRESS NOTED
--- NOTE | 2020-05-24 20:20 | NUR ---
DR. WOODRUFF CALLED ONCALL FOR IR, CLARIFIED GIVING SOTALOL DOSE WITH HEART RATE 59-60 BMP ON CM, ADVISED TO GIVE DOSE
--- NOTE | 2020-05-24 21:30 | NUR ---
PT GIVEN SOMETHING TO EAT BY ONE OF THE OTHER NURSES, ADVISED THAT THE PATIENT ATE WELL.
--- NOTE | 2020-05-24 23:00 | NUR ---
PT REASSESSMENT COMPLETED AT THIS TIME, NO CHANGES NOTED FROM PREVIOUS EXAM, VSS
[2020-05-25] VITALS (7 sets, daily range): BP systolic 93–129; BP diastolic 23–91
--- NOTE | 2020-05-25 01:10 | NUR ---
PATIENT RECEIVED FROM ROOM CV08 TO 2305. PATIENT MOVED OVER TO BED WITH MULTIPLE PERSON ASSIST. PATIENT WAS SATURATED IN GILMAR COLORED URINE. PATIENT ROGELIO AREA CLEANED AND NEW PUREWICK PLACED TO SUCTION. PATIENT VITALS SIGN ARE IN STABLE CONDITION. CALL LIGHT WITHIN REACH, BED IN LOW POSITION, AND WILL CONTINUE TO MONITOR.
--- NOTE | 2020-05-25 03:00 | NUR ---
REASSESSMENT COMPLETE WITH NO DISTRESS NOTED. CALL LIGHT WITHIN REACH, BED IN LOW POSITION, AND WILL CONTINUE TO MONITOR.
--- NOTE | 2020-05-25 04:41 | NUR ---
CM WITH 1ST DEGREE AV BLOCK NOTED. V/S ARE STABLE. CALL LIGHT WITHIN REACH, BED IN LOW POSITION. R GROIN IS SOFT AND DRESSING CDI.
[2020-05-25 06:23] LABS: ANION GAP 10.4 mmol/L (8-16); CALCIUM 8.9 mg/dL (8.5-10.1); CARBON DIOXIDE 27.3 mmol/L (21.0-32.0); POTASSIUM - SERUM 3.7 mmol/L (3.5-5.1)
--- NOTE | 2020-05-25 07:20 | NUR ---
REPORT RECEIVED, SHIFT ASSESSMENT COMPLETE, PT IS ALERT, FOLLOWS COMMANDS, ON RA WITH 97% O2 SAT. ALL PPP, VSS, CALL LIGHT IN REACH
--- NOTE | 2020-05-25 09:00 | NUR ---
RIGHT HAND PIV DC'D AT THIS TIME TIP INTACT
[2020-05-25] MEDS ORDERED: PLAVIX75 MG PO (09:18)
--- NOTE | 2020-05-25 11:30 | NUR ---
FED LUNCH TO PT, ATE 100%
--- NOTE | 2020-05-25 14:10 | NUR ---
PT DC'D AT THIS TIME, VIA WHEELCHAIR
== END 2020-05-25 14:26 | disposition home or self-care (01) | DRG 35 ==
LOC: D.SDCHOLD 05-02 08:00 → D.ICU 05-24 07:39 → D.SDCHOLD 05-24 08:00 → D.CVICU 05-24 14:29 → D.ICU 05-25 01:10
PROVIDERS: ADMIT Radiology Diagnostic Radiology; ATTEND Radiology Diagnostic Radiology
PROC: 037L3DZ Dilation of Left Internal Carotid Artery with Intraluminal Device, Percutaneous Approach (ICD-10-PCS; principal; 2020-05-24 10:00)
DX: I65.22 Occlusion and stenosis of left carotid artery (principal); I69.354 Hemiplegia and hemiparesis following cerebral infarction affecting left non-dominant side; Z72.0 Tobacco use

== ENCOUNTER → 2020-12-21 10:12 | Outpatient (CLI) | payer MEDICARE, MEDICAID ==
[2020-05-24 13:41] VITALS: BMI 23.0
[~2020-12-21 10:12] MED LIST changes: +TYLENOL W/CODEI1 TAB PO; +ULTRAM50 MG PO
== END | disposition home or self-care (01) ==
LOC: D.US 10:12
PROVIDERS: ATTEND Radiology Diagnostic Radiology
DX: I65.22 Occlusion and stenosis of left carotid artery (principal)